=== PATIENT | male | born 1960 | race Caucasian/White ===

== ENCOUNTER 2021-04-11 13:45 | Emergency (ER) | payer OTHER, SELFPAY ==
--- NOTE | ~2021-04-11 | XR_ITS ---
EXAMINATION: XR CHEST CLINICAL INFORMATION: Chest pain COMPARISON: Chest radiographs 01/12/2020, 05/08/2017 TECHNIQUE: Portable upright AP x2 views of the chest was obtained. FINDINGS: The lungs are clear. The vascularity is normal. There is no pneumothorax, airspace consolidation, pleural reaction, or effusion. The heart is normal in size. The vascularity is normal. The hilar and mediastinal contours and visualized bony structures are unremarkable. XR/XR chest 1V IMPRESSION: Unremarkable examination.
[2021-04-11 14:26] VITALS: BP 137/84; PULSE 72; RESP 18; O2SAT 100; BMI 25.8
--- NOTE | 2021-04-11 14:29 | ECG_ITS ---
Test Reason : CHEST PAIN Blood Pressure : / mmHG Vent. Rate : 067 BPM Atrial Rate : 067 BPM P-R Int : 152 ms QRS Dur : 092 ms QT Int : 380 ms P-R-T Axes : 072 048 007 degrees QTc Int : 401 ms Normal sinus rhythm Possible Left atrial enlargement Borderline ECG No significant changes when compared with the previous EKG of 08 may 2017 Referred By: Generic ED Physician Electronically Signed By:MIKE CHEN
[2021-04-11 15:01] LABS: MANUAL DIFF FLAG NO
[2021-04-11 15:02] LABS: Basophils Percent Auto 0.4 % (0-2); Eosinophils Absolute Auto 0.1 X10*3/uL (0.0-0.4); Eosinophils Percent Auto 1.3 % (0-4); Hematocrit 46.1 % (42-52); Hemoglobin 15.4 g/dl (14.0-18.0); Imm Gran Abs Auto 0.04 X10*3/uL (0.00-0.03); Imm Gran Pct Auto 0.4 % (0.0-0.4); Lymphocytes Absolute Auto 2.1 X10*3/uL (1.2-4.9); Mean Corpuscular HGB Conc 33.4 g/dl (31.0-36.0); Mean Corpuscular Hemoglobin 30.1 pg (27.0-33.0); Mean Platelet Volume 11.4 fL (9.4-12.4); Monocytes Absolute Auto 0.6 X10*3/uL (0.1-1.2); Monocytes Percent Auto 5.9 % (2-11); Neutrophils Absolute Auto 7.1 X10*3/uL (2.0-8.3); Platelet Count 224 X10*3/uL (160-400); Red Blood Count 5.12 X10*6/uL (4.60-5.80); Red Cell Distribution Width 12.9 % (11.0-16.0)
[2021-04-11 15:19] LABS: Anion Gap 14 (12-20); Blood Urea Nitrogen 13 mg/dL (9-16); Calcium 9.6 mg/dL (8.4-10.2); Carbon Dioxide 28 mmol/L (22-29); Chloride 106 mmol/L (96-108); Creatinine Clr Calc Pharmacy 71.9; Estimated Glomerular Filt Rate > 60; Glucose Random 73 mg/dL (60-115); Potassium 4.6 mmol/L (3.3-5.1); Sodium 143 mmol/L (135-145)
[2021-04-11 15:27] LABS: B Type Natriuretic Peptide 50 pg/mL (<100); Troponin-I High Sensitivity < 3.5 ng/L (<3.5-35.0)
[2021-04-11 16:00] VITALS: BP 152/102; PULSE 59; RESP 14; O2SAT 99
[2021-04-11 16:33] VITALS: BP 131/90
--- NOTE | 2021-04-11 16:42 | ED_ITS ---
HPI - Chest Pain General Chief Complaint: Chest Pain Stated Complaint: chest, back, and neck pain Time Seen by Provider: 04/11/21 16:42 Source: patient Mode of arrival: ambulatory Limitations: no limitations History of Present Illness HPI narrative: History of hypertension not taking medication for a month complaining of pain in the left chest neck and for last 3 days pain increases on movement of the left arm on palpation taking a deep breath no shortness of breath patient does have a chronic cough no syncope no palpitation or leg swelling MD complaint: chest pain Related Data Previous Rx's Medication Instructions Recorded cyclobenzaprine 10 mg PO Q8H #20 tab 04/11/21 tramadol 50 mg PO Q6H PRN #20 tab 04/11/21 Allergies Allergy/AdvReac Type Severity Reaction Status Date / Time adult vitamins Allergy Unknown Uncoded 08/20/19 00:00 MULTIVITAMIN Allergy Unknown NAUSEA & Uncoded 07/15/20 15:19 VOMITING Review of Systems Review of Systems: Constitutional : No Weight loss, No Fever, No Chills ENT/Mouth : No sore throat, No Rhinorrhea Eyes: No Eye Pain, No Swelling Cardiovascular : + Chest Pain, no palpitations Respiratory : No Cough, No Sputum, no shortness of breath Gastrointestinal : no Nausea, No Vomiting, No Diarrhea, No abdominal Pain, no black stools Genitourinary : No Dysuria, No Urinary Frequency Musculoskeletal : No joint pain, No Myalgias, No Joint Swelling Skin : No Skin Lesions, No rash Neuro : No Weakness, No Numbness, No Dizziness, No Headache Psych : No Anxiety/Panic, No Depression Heme/Lymph: No Bruising, No Lymphadenopathy Endocrine : No Polyuria, No Polydipsia All other systems reviewed and are negative [facility] Past Medical History Medical History (Updated 04/11/21 @ 18:06 by Darius Navarro MD) HTN (hypertension) with goal to be determined Social History Social History Alcohol intake: never Patient Tobacco Use Status: Current everyday Tobacco user Smoked in Last 30 Days: Yes Use of substances other than those prescribed or required for medical reasons: Yes Substance Use Type: Marijuana Advance Directives: No Advance Directives Information Provided: Yes Physical Exam Vital Signs: Vital Signs: Last Vital Signs Pulse 59 04/11/21 16:00 Resp 14 04/11/21 16:00 BP 131/90 H 04/11/21 16:33 Pulse Ox 99 04/11/21 16:00 Body Mass Index 25.8 Appearance: Alert. Oriented X3. No acute distress. Eyes: PERRLA, No Nystagmus ENT: Pharynx normal. Oral Mucosa moist Neck: Normal inspection. Neck supple. CVS: Normal heart rate and rhythm. Pulses normal. Tenderness to palpation left anterior chest and left side of the neck Respiratory: No respiratory distress. Equal air entry bilateral, no wheezing/rales/rhonchi Abdomen: Soft and nontender. Bowel sounds are present, no mass palpable, no CVA tenderness Skin: Skin warm and dry. Normal skin color. Normal skin turgor. Extremities: No lower extremity edema. No calf tenderness Neuro: Oriented X 3. No motor deficit. No sensory deficit.No cerebellar signs , cranial nerves II-XII intact MDM - Chest Pain MDM Narrative Medical decision making narrative: Patient has atypical chest pain not localize to chest mostly the left shoulder left side of the neck and upper back normal EKG and troponin discharge patient home on pain medication Lab Data Attestation: I reviewed the patient's lab results. Result diagrams: 04/11/21 14:45 04/11/21 14:45 Labs: Lab Results 04/11/21 04/11/21 04/11/21 Range/Units 14:45 14:45 14:45 WBC 10.0 (4.8-10.8) X10*3/uL RBC 5.12 (4.60-5.80) X10*6/uL Hgb 15.4 (14.0-18.0) g/dl Hct 46.1 (42-52) % MCV 90.0 (80-98) fL MCH 30.1 (27.0-33.0) pg MCHC 33.4 (31.0-36.0) g/dl RDW 12.9 (11.0-16.0) % Plt Count 224 (160-400) X10*3/uL MPV 11.4 (9.4-12.4) fL Immature Gran % (Auto) 0.4 (0.0-0.4) % Neut % (Auto) 71.0 (45-73) % Lymph % (Auto) 21.0 (20-40) % Ramsey % (Auto) 5.9 (2-11) % Eos % (Auto) 1.3 (0-4) % Baso % (Auto) 0.4 (0-2) % Lymph # (Auto) 2.1 (1.2-4.9) X10*3/uL Ramsey # (Auto) 0.6 (0.1-1.2) X10*3/uL Eos # (Auto) 0.1 (0.0-0.4) X10*3/uL Baso # (Auto) 0.0 (0.0-0.2) X10*3/uL Abs Immat Gran (auto) 0.04 H (0.00-0.03) X10*3/uL Absolute Neuts (auto) 7.1 (2.0-8.3) X10*3/uL Absolute Nucleated RBC 0.000 (0.0-0.012) X10*3/uL Nucleated RBC % (auto) 0.0 (0.0-0.2) /100WBC Sodium 143 (135-145) mmol/L Potassium 4.6 (3.3-5.1) mmol/L Chloride 106 (96-108) mmol/L Carbon Dioxide 28 (22-29) mmol/L Anion Gap 14 (12-20) BUN 13 (9-16) mg/dL Creatinine 1.03 (0.5-1.4) mg/dL Estim Creat Clear Calc 71.9 Estimated GFR > 60 Random Glucose 73 (60-115) mg/dL Calcium 9.6 (8.4-10.2) mg/dL Troponin I High Sens < 3.5 (<3.5-35.0) ng/L B-Natriuretic Peptide (<100) pg/mL 04/11/21 Range/Units 14:45 WBC (4.8-10.8) X10*3/uL RBC (4.60-5.80) X10*6/uL Hgb (14.0-18.0) g/dl Hct (42-52) % MCV (80-98) fL MCH (27.0-33.0) pg MCHC (31.0-36.0) g/dl RDW (11.0-16.0) % Plt Count (160-400) X10*3/uL MPV (9.4-12.4) fL Immature Gran % (Auto) (0.0-0.4) % Neut % (Auto) (45-73) % Lymph % (Auto) (20-40) % Ramsey % (Auto) (2-11) % Eos % (Auto) (0-4) % Baso % (Auto) (0-2) % Lymph # (Auto) (1.2-4.9) X10*3/uL Ramsey # (Auto) (0.1-1.2) X10*3/uL Eos # (Auto) (0.0-0.4) X10*3/uL Baso # (Auto) (0.0-0.2) X10*3/uL Abs Immat Gran (auto) (0.00-0.03) X10*3/uL Absolute Neuts (auto) (2.0-8.3) X10*3/uL Absolute Nucleated RBC (0.0-0.012) X10*3/uL Nucleated RBC % (auto) (0.0-0.2) /100WBC Sodium (135-145) mmol/L Potassium (3.3-5.1) mmol/L Chloride (96-108) mmol/L Carbon Dioxide (22-29) mmol/L Anion Gap (12-20) BUN (9-16) mg/dL Creatinine (0.5-1.4) mg/dL Estim Creat Clear Calc Estimated GFR Random Glucose (60-115) mg/dL Calcium (8.4-10.2) mg/dL Troponin I High Sens (<3.5-35.0) ng/L B-Natriuretic Peptide 50 (<100) pg/mL ECG Data ECG #1: Attestation: I personally reviewed and interpreted this ECG as follows: Interpretation: Normal sinus rhythm heart rate 67 beats per minute normal intervals normal axis no acute ischemic changes Discharge Plan Discharge Clinical Impression: Musculoskeletal chest pain Patient Disposition: Home, Self-Care Instructions: Musculoskeletal Pain (ED) Additional Instructions: Take pain medication as advised Follow with PCP Prescriptions: New cyclobenzaprine 10 mg tablet 10 mg PO Q8H Qty: 20 RF: 0 tramadol 50 mg tablet 50 mg PO Q6H PRN (Reason: pain) Qty: 20 RF: 0
[2021-04-11] MEDS: Ketorolac Tromethamine 60 MG/2 ML VIAL IM (17:16)
--- NOTE | 2021-04-11 18:09 | PC.NURSE ---
Patient given discharge instructions, called for a ride to pick him up, gait steady, alert and oriented, vss- advised to follow up with PCP or to return here if does not get better.
== END 2021-04-11 18:11 | disposition home or self-care (01) ==
PROVIDERS: Emergency Provider Internal Medicine; PCP Nurse Practitioner Family
DX: R07.89 Other chest pain (principal); M54.2 Cervicalgia; R05 Cough; I10 Essential (primary) hypertension
CPT/HCPCS: 36415; 71045; 80048; 83880; 84484; 85025; 93005; 96372; 99284; J1885

== ENCOUNTER 2022-05-25 12:41 | Emergency (ER) | payer OTHER, SELFPAY ==
[2022-05-25 13:35] VITALS: BP 121/80; PULSE 75; RESP 18; TEMP 36.3; O2SAT 97; BMI 25.8
== END 2022-05-25 16:30 | disposition left against medical advice (07) ==
LOC: HO.ED 17:26
PROVIDERS: Emergency Provider Emergency Medicine
DX: M25.561 Pain in right knee (principal)
CPT/HCPCS: 99281

== ENCOUNTER 2023-05-21 13:46 | Outpatient (REF) | payer OTHER, SELFPAY ==
[2023-05-21 16:18] LABS: MANUAL DIFF FLAG NO
[2023-05-21 16:33] LABS: Basophils Absolute Auto 0.1 X10*3/uL (0.0-0.2); Basophils Percent Auto 0.7 % (0-2); Eosinophils Absolute Auto 0.1 X10*3/uL (0.0-0.4); Eosinophils Percent Auto 1.4 % (0-4); Hematocrit 45.3 % (42.0-52.0); Hemoglobin 14.9 g/dl (14.0-18.0); Imm Gran Abs Auto 0.01 X10*3/uL (0.00-0.03); Imm Gran Pct Auto 0.1 % (0.0-0.4); Lymphocytes Absolute Auto 2.4 X10*3/uL (1.2-4.9); Lymphocytes Percent Auto 29.7 % (20-40); Mean Corpuscular HGB Conc 32.9 g/dl (31.0-36.0); Mean Corpuscular Hemoglobin 30.2 pg (27.0-33.0); Mean Corpuscular Volume 91.7 fL (80.0-98.0); Mean Platelet Volume 11.6 fL (9.4-12.4); Monocytes Absolute Auto 0.6 X10*3/uL (0.1-1.2); Monocytes Percent Auto 6.9 % (2-11); Neutrophils Absolute Auto 4.9 x10*3/uL (2.0-8.3); Neutrophils Percent Auto 61.2 % (45-73); Platelet Count 203 X10*3/uL (160-400); Red Blood Count 4.94 X10*6/uL (4.60-5.80); Red Cell Distribution Width 13.1 % (11.0-16.0)
[2023-05-21 16:40] LABS: Alanine Aminotransferase 11 U/L (0-40); Albumin Level 4.4 g/dL (3.5-5.0); Alkaline Phosphatase 63 U/L (39-117); Anion Gap 11 (12-20); Aspartate Amino Transferase 18 U/L (5-37); Bilirubin Total 0.6 mg/dL (0.0-1.0); Blood Urea Nitrogen 12 mg/dL (9-16); Calcium 9.4 mg/dL (8.4-10.2); Carbon Dioxide 26 mmol/L (22-29); Chloride 107 mmol/L (96-108); Estimated Glomerular Filt Rate > 60; Glucose Random 89 mg/dL (60-115); Potassium 4.2 mmol/L (3.3-5.1); Sodium 140 mmol/L (135-145); Total Protein 7.2 g/dL (6.5-8.0)
== END 2023-05-21 13:47 | disposition home or self-care (01) ==
LOC: HO.HHCL 13:46
PROVIDERS: Visit Provider General Practice
DX: I10 Essential (primary) hypertension (principal)
CPT/HCPCS: 36415; 80053; 85025

== ENCOUNTER 2023-07-27 14:41 | Outpatient (AMB) | payer OTHER, SELFPAY ==
--- NOTE | 2023-07-27 10:43 | MHC.OFFVIS ---
Intake Intake Visit Reasons: LDCT SD Allergies adult vitamins Allergy (Unknown, Uncoded 05/25/22 13:35) Unknown MULTIVITAMIN Allergy (Unknown, Uncoded 05/25/22 13:35) NAUSEA & VOMITING HPI LDCT SD HPI Details Initial visit for this 62yo smoker with a 50PYH. Patient has been smoking since age 9 for 53 years at 1ppd. . Reports daily marijuana use. Denies second hand smoke exposure. Denies exposure to chemicals or substances like asbestos. . Denies known family history of lung cancer. Denies personal history of cancers. Denies chest CT in last year. . Denies recent travel outside the [place]. Denies recent respiratory illness or recent hospitalization for respiratory issues. Denies testing positive for COVID. Admits receiving COVID Vaccine. x3. . Denies fever, chills, new/worsening cough, hemoptysis, hoarseness or dysphagia. Denies significant chest pain, significant dyspnea or unintentional weight loss. Patient Lung Cancer Screening Questionnaire reviewed with patient by provider. . Shared Decision Making Completed. Patient meets criteria. Discussed in detail with patient, the risk vs benefit of LDCT screening. Patient consents to proceed with scan. Discussed smoking cessation. [facility] Medical History (Updated 07/17/23 @ 10:00 by Keren Morrissey PA-C) History of diabetes mellitus, type II Nicotine dependence, cigarettes, uncomplicated Hypertension Surgical History (Updated 07/17/23 @ 10:00 by Keren Morrissey PA-C) History of colonoscopy History of shoulder surgery History of lumbar surgery Social History (Updated 07/27/23 @ 14:44 by Keren Morrissey PA-C) Alcohol intake: never Patient Tobacco Use Status: Current everyday Tobacco user Years Smoked: onset 9yo, 1ppd x 53yrs, 50pyh Substance Use Type: Marijuana Assessment & Plan Assessment & Plan (1) Nicotine dependence, cigarettes, uncomplicated: Comment: (current smoker, onset 9yo, 1ppd x 53yrs, 50pyh) Code(s): F17.210 - Nicotine dependence, cigarettes, uncomplicated Plan: - SDM visit completed today in office. - Patient meets criteria for LDCT for lung cancer screening purposes and is asymptomatic. - Smoking cessation counseling offered. Patients can always call [phone]. - Will arrange for a LDCT scan of the chest for screening purposes at [facility]. - Risks, benefits, and alternatives were discussed in detail and the patient agrees to proceed. - Risks discussed include but are not limited to: radiation exposure, anxiety during testing and while awaiting results, false negatives, false positives and possibility of additional intervention such as further imaging or surgical procedures for benign disease. - Benefits are obviously detection of lung cancer at an early stage which can lead to improved outcomes. - Discussed the importance of screening program compliance with adherence to yearly LDCT scan as scheduled - or sooner interval scans for personalized screening regimen. - Discussed follow up plan. Our office will send a letter discussing results and if needed set up phone call and office visit based on CT findings. - Patient educated on results categorization and the management decisions for suspicious findings potentially found on the screening LDCT scan. Any patient with a Lung RADS score of 3 or 4 will be reviewed by a multidisciplinary team at [facility] to form a plan of action in regards to scan findings. - If further work up is warranted for a suspicious lung finding this will be followed by the Lung Cancer Screening program in conjunction with the Thoracic Surgery Department at [facility]. - A copy of the office note and LDCT will be sent to the patient's PCP - as well as documentation on any associated further plans of care. - Incidental findings on LDCT are the PCP's responsibility. These findings are indicated with an S finding on the LDCT Assessment. A note discussing the findings will be sent to the PCP who is then responsible for further management. - All questions answered.? Coding Level of Care Code Lung Cancer Screening G0296 Diagnoses Nicotine dependence, cigarettes, uncomplicated F17.210
== END 2023-07-27 15:00 | disposition home or self-care (01) ==
PROVIDERS: Visit Provider Physician Assistant Medical
DX: F17.210 Nicotine dependence, cigarettes, uncomplicated (principal)
CPT/HCPCS: G0296

== ENCOUNTER 2023-07-27 14:56 | Outpatient (REF) | payer OTHER, SELFPAY | END 2023-07-27 14:57 | disposition home or self-care (01) | LOC: HO.CT 14:56 | PROVIDERS: Visit Provider Physician Assistant Medical | DX: Z12.2 Encounter for screening for malignant neoplasm of respiratory organs (principal); F17.210 Nicotine dependence, cigarettes, uncomplicated | CPT/HCPCS: G0296 ==

== ENCOUNTER 2023-08-09 10:06 | Outpatient (REF) | payer OTHER, SELFPAY ==
--- NOTE | ~2023-08-09 | CT_ITS ---
EXAMINATION: CT CHEST LOW-DOSE SCREENING WITHOUT CONTRAST HISTORY: Asymptomatic patient meeting criteria for lung screening. Nicotine dependence. PATIENT PACK-YEAR HISTORY: 1 pack per day, smoker for 53 years. Current Smoker: Yes If former smoker, years since quitting: Not applicable COMPARISON: No similar priors. TECHNIQUE: Multidetector volumetric non-contrast CT imaging of the chest was obtained using low dose screening CT technique. Axial thin section reformations in soft tissue and lung windows were obtained. Sagittal and coronal reformations were obtained. Axial MIP images were also created and reviewed. This CT examination was performed using dose optimization techniques as appropriate, variously including the following: *Automated exposure control *Adjustment of mA and/or kV according to patient size (this includes techniques or standardized protocols for targeted exams where dose is matched to indication/reason for exam; i.e. 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 Normal heart size. No abnormal soft tissue calcifications. LUNG: Mild bronchial wall thickening. No focal consolidation or significant ground-glass disease. Central airways are patent. Background of mild emphysematous changes. Multiple pulmonary nodules, provider relations representative as follow (series 6): 1. A 0.5 x 0.3 cm solid left upper lobe nodule, image 94. 2. A 0.8 x 0.5 cm solid left lower lobe nodule with some internal cystic changes, image 260. 3. A 0.6 x 0.3 cm ground-glass nodule in the right lower lobe, image 314. 4. A 0.6 x 0.4 cm solid right upper lobe nodule with internal lucency, image 201. 5. A 0.2 cm solid nodule in the right apex, image 116. 6. A 0.4 cm solid nodule in the right upper lobe, image 126. PLEURA: No pleural effusion or pneumothorax. MEDIASTINUM: Normal heart size. No pericardial effusion. No mediastinal lymphadenopathy. Evaluation of hilar structures is limited in the absence of IV contrast. VASCULAR: Multivessel coronary artery calcifications. Atherosclerotic disease of the thoracic aorta. Normal caliber of the thoracic aorta. Visual estimate of coronary calcified plaque burden: Severe. However, this exam cannot replace a dedicated cardiac CT calcium score for accurate assessment. CHEST WALL/AXILLA: Minimal symmetric gynecomastia. No axillary lymphadenopathy. VISUALIZED ABDOMEN: Low dose technique limits assessment of the upper abdomen. No suspicious abnormality demonstrated. MUSCULOSKELETAL: No acute or suspicious osseous abnormality. SPINAL COMPRESSION: Absent. CT/CT lung screening IMPRESSION: 1. Background of bronchial wall thickening suggesting small airways disease. 2. Mild emphysema. 3. Multiple pulmonary nodules provider relations representative including a 0.8 cm solid left lower lobe nodule with internal cystic changes, 0.6 cm ground-glass nodule in the right lower lobe and 0.6 cm solid right upper lobe nodule with internal lucencies. LUNG-RADS CATEGORY ASSESSMENT: Lung-RADs category 4b. INCIDENTAL FINDINGS (S CATEGORY): Finding: No significant incidental findings. RECOMMENDATION: Recommend evaluation with prompt diagnostic chest CT; PET/CT or tissue sampling may be considered for evaluation of the 0.8 cm left lower lobe nodule.
== END 2023-08-09 10:07 | disposition home or self-care (01) ==
LOC: HO.CT 10:06
PROVIDERS: Visit Provider Physician Assistant Medical
DX: Z12.2 Encounter for screening for malignant neoplasm of respiratory organs (principal); F17.210 Nicotine dependence, cigarettes, uncomplicated
CPT/HCPCS: 71271

== ENCOUNTER 2023-11-21 13:53 | Outpatient (REF) | payer OTHER, SELFPAY ==
--- NOTE | ~2023-11-21 | CT_ITS ---
EXAMINATION: CT CHEST SCREENING CLINICAL INFORMATION: 63 year old smoker with 53 pack pack year history. Follow-up pulmonary nodules. COMPARISON: 08/09/2023 TECHNIQUE: Multidetector volumetric CT imaging of the chest is performed without contrast using low dose technique. Additional 2D coronal and sagittal reformatted images and axial 3D maximum intensity projection (MIP) images are generated on the CT workstation. This CT examination was performed using dose optimization techniques as appropriate, variously including the following: *Automated exposure control *Adjustment of mA and/or kV according to patient size (this includes techniques or standardized protocols for targeted exams where dose is matched to indication/reason for exam; i.e. extremities or head) *Use of iterative reconstruction technique DLP: 48 mGy-cm FINDINGS: DIRECTOR DIETETICS DEPARTMENT: Unremarkable. LUNGS: Trachea and bronchi are patent. Diffuse mild bronchial wall thickening. Underlying hyperinflation. Mild centrilobular emphysema. NODULES: On 6:85, 6 x 2 mm left upper lobe pulmonary nodule visually appears slightly smaller, previous measurement was 5 x 3 mm. On 6:94, 2 mm RUL nodule is unchanged. On 6:101, 3 mm nodule is unchanged. On 6:173, 4 mm nodule with internal lucency previously measured 6 mm. On 6:242, 8 x 6 mm pulmonary nodule previously measured 8 x 5 mm. Internal cystic change again seen. Irregular borders again noted. On 6:285, 3 mm groundglass nodule appears smaller than 6 mm focus with previous study. MEDIASTINUM: Unremarkable thyroid. No pathologic lymphadenopathy. Nonenlarged heart. No pericardial atherosclerotic calcifications nonaneurysmal aorta. Nonenlarged pulmonary arteries. CORONARY ARTERY CALCIFICATION: Moderately severe. PLEURA: There is no pleural effusion. No pleural mass or thickening. AXILLA: No lymphadenopathy. UPPER ABDOMEN: Unremarkable OSSEOUS STRUCTURES: Unremarkable. CT/CT lung screen follow up IMPRESSION: Bilateral pulmonary nodules, largest 8 mm in the left lower lobe. Unchanged emphysema. ASSESSMENT: Lung-RADS category 4B: Suspicious RECOMMENDATION: Further evaluation with PET/CT. At the time of this dictation, PSA service contacted to alert referring physician as to findings and recommendations.
== END 2023-11-21 13:54 | disposition home or self-care (01) ==
LOC: HO.CT 13:53
PROVIDERS: Visit Provider Physician Assistant Medical
DX: R91.8 Other nonspecific abnormal finding of lung field (principal); F17.210 Nicotine dependence, cigarettes, uncomplicated
CPT/HCPCS: 71250

== ENCOUNTER 2024-02-09 08:57 | Emergency (ER) | payer MEDICARE, OTHER, SELFPAY ==
--- NOTE | ~2024-02-09 | XR_ITS ---
EXAMINATION: XR KNEE, LEFT CLINICAL INFORMATION: Pain. Patient heard pop. COMPARISON: None available. TECHNIQUE: Four views of the left knee. FINDINGS: Bone alignment is normal. No fracture or dislocation. Normal joint spaces. Small to moderate joint effusion. Atherosclerotic disease. XR/XR knee LT 4V IMPRESSION: No fracture or dislocation seen. Small to moderate joint effusion.
[2024-02-09 09:02] VITALS: BP 111/79; PULSE 88; RESP 16; TEMP 36.5; O2SAT 99; BMI 29.1
--- NOTE | 2024-02-09 09:31 | ED_ITS ---
HPI - Extremity Injury (Lower) General Chief Complaint: Extremity Injury, Lower Stated Complaint: l knee popped Time Seen by Provider: 02/09/24 09:25 Source: patient Mode of arrival: ambulatory Limitations: no limitations History of Present Illness HPI Narrative: Patient is a 63-year-old male presenting to the emergency department with complaint of left knee pain since yesterday. States that he was walking down the hallway at his house and as he turned the corner into his room he felt a pop sensation with pain. States pain is 2 medial aspect of knee. Denies any numbness or tingling to his leg. Took ibuprofen last night. complaint: knee injury Type of Injury: unknown Place: home Severity: severe Relieving factors: NSAID Exacerbating factors: movement and palpation Associated symptoms: snap/pop sensation Other symptoms: none Treatments prior to arrival: NSAIDS Related Data Previous Rx's ?Medication ?Instructions ?Recorded cyclobenzaprine 10 mg tablet 10 mg PO Q8H #20 tabs 04/11/21 tramadol 50 mg tablet 50 mg PO Q6H PRN pain #20 tabs 04/11/21 diclofenac sodium 1 % topical gel 2 g topical QID #100 grams 02/09/24 Allergies Allergy/AdvReac Type Severity Reaction Status Date / Time No Known Allergies Allergy Verified 02/09/24 09:05 Review of Systems Review of Systems: As per HPI. Yes all other systems are reviewed and are negative Constitutional: Constitutional: Reports as per HPI [facility] Past Medical History Medical History (Updated 02/09/24 @ 11:10 by Camelia Leung NP) Coronary artery calcification seen on CAT scan Pulmonary nodules History of diabetes mellitus, type II Nicotine dependence, cigarettes, uncomplicated Hypertension Surgical History (Updated 07/17/23 @ 10:00 by Keren Morrissey PA-C) History of colonoscopy History of shoulder surgery History of lumbar surgery Social History Social History (Updated 07/27/23 @ 14:44 by Keren Morrissey PA-C) Alcohol intake: never Patient Tobacco Use Status: Current everyday Tobacco user Years Smoked: onset 9yo, 1ppd x 53yrs, 50pyh Smoked in Last 30 Days: Yes Use of substances other than those prescribed or required for medical reasons: Yes Substance Use Type: Marijuana Substance Use Frequency: Daily Advance Directives: No Advance Directives Information Provided: Yes Physical Exam Vital Signs: Vital Signs: Last Vital Signs Temp 97.7 F 02/09/24 09:02 Pulse 88 02/09/24 09:02 Resp 16 02/09/24 09:02 BP 111/79 02/09/24 09:02 Pulse Ox 99 02/09/24 09:02 O2 Del Method Room Air 02/09/24 09:02 BMI result Body Mass Index 29.1 Vital signs have been reviewed and appear to be correct. Blood pressure normal. Heart rate normal. Respiratory rate normal. Temperature normal. Oxygen saturation normal. Const: General: cooperative, healthy appearing and no acute distress Orientation/consciousness: oriented to person, oriented to place, oriented to time and patient oriented x3 Limitations: no limitations HEENT: Head: Yes normocephalic and Yes atraumatic Ears: external ears normal General nose exam: Normal external nose present Face and sinus: Yes face symmetric Mouth: oropharynx normal and moist mucous membranes Throat: Yes uvula midline Eyes: Pupils: Equal, round and reactive pupils present Neck: Neck: Yes normal visual inspection and Yes supple Resp: Effort & Inspection: normal respiratory effort and able to speak in complete sentences Auscultation: clear to auscultation bilaterally Cardio: Rate: regular rate Rhythm: regular rhythm Heart sounds: S1 normal heart sound present and S2 normal heart sound present GI: Palpation (GI): Soft to palpation and nontender Auscultation: normoactive bowel sounds : General: Yes no CVA tenderness Back/Spine/Pelvis: Back: no CVA tenderness Skin: General skin exam: elasticity normal and turgor normal Neuro: General: oriented to person, oriented to place, oriented to time, patient oriented x3, moves all extremities, no focal motor deficits and CN's II- XI intact bilaterally Cranial nerves: Yes Equal, round and reactive pupils present Cognition (Neuro): normal cognition Extrem: General: Yes full ROM, Yes normal exam except as noted, Yes no pedal edema and Yes no calf tenderness Left lower extremity: knee Details: normal to inspection, tenderness Location: of the medial joint line, normal ROM and knee ligament exam normal; no swelling and no unusual warmth Psych: Mental Status: mental status grossly normal Affect: normal affect Thought process: Normal thought process present Medications Administered Discontinued Medications Generic Name Dose Route Start Last Admin Trade Name Freq PRN Reason Stop Dose Admin Acetaminophen 650 mg 02/09/24 09:33 02/09/24 09:39 Acetaminophen 325 Mg Tablet PO 02/09/24 09:34 650 mg ONCE ONE Administration Ibuprofen 600 mg 02/09/24 09:33 02/09/24 09:39 Ibuprofen 600 Mg Tablet PO 02/09/24 09:34 600 mg ONCE ONE Administration Medical Decision Making Medical Decision Making [facility] Narrative: Patient is a 63-year-old male presenting to the emergency department with complaint of left knee pain since yesterday. On exam patient is awake, A+Ox3, VS WNL, afebrile, normal neurological exam without focal deficits, physical exam findings as above. Given reported symptoms and physical exam findings, initial differential includes knee strain, sprain, effusion, degenerative disease. X- ray notable for small to moderate effusion. My interpretation is in agreement with the radiologist's interpretation. Do not suspect septic joint as patient has full range of motion, no erythema, no warmth. Elkin wrap applied in the emergency department. Patient advised to alternate Tylenol and ibuprofen, will prescribe diclofenac gel for patient to apply topically. Advised patient to keep leg elevated and apply ice intermittently. Will refer to orthopedics for any ongoing symptoms. Return precautions discussed at bedside. Patient verbalized understanding of and agreement with plan. Differential Diagnosis Differential Diagnoses: The differential diagnosis associated with the presentation includes As per [facility] Independent Interpretation I performed an independent interpretation of an: Plain X-Ray Interpretation: Small to moderate effusion to left knee Radiology Impression Discussion of test interpretation with radiology: I have reviewed the radiologist's reading. Radiologist Impression: XR/XR knee LT 4V IMPRESSION: No fracture or dislocation seen. Small to moderate joint effusion. External Record Review External record reviewed: Inpatient record, Office record and Outpatient record Prescription Management I considered prescription management with: Pain Medication Discharge Plan Discharge Clinical Impression: Effusion of left knee Patient Disposition: Home, Self-Care Instructions: How to Use an Elastic Bandage (ED), Swollen Knee Joint (ED), R.I.C.E. Treatment (ED) Additional Instructions: You have been evaluated in the emergency department today for knee pain. Your x-ray showed fluid around your knee. You were given an Elkin wrap in the emergency department today, please use this to decrease swelling. Please rest, ice, and elevate your knee, and resume normal activities as tolerated. We recommend you take 600mg ibuprofen every 6 hours or 650mg Tylenol every 6 hours as needed for pain. If needed you can alternate these medications as they take 1 medication every 3 hours. For instance at noon take ibuprofen, then at 3:00 p.m. take Tylenol, then at 6:00 p.m. take ibuprofen. You are also being prescribed diclofenac gel which you can apply to the affected area 4 times daily. Please schedule an appointment for follow-up with your primary care provider this week. Return to the emergency department if you experience worsening pain, numbness, tingling, change of color in your leg or any other concerning symptoms. If your symptoms persist beyond the next 1-2 weeks, please call the orthopedic office to schedule an appointment for further management of your symptoms. Prescriptions: New diclofenac sodium 1 % gel 2 g topical QID Qty: 100 0RF Rx Instructions: apply to left knee No Action cyclobenzaprine 10 mg tablet 10 mg PO Q8H Qty: 20 0RF tramadol 50 mg tablet 50 mg PO Q6H PRN (Reason: pain) Qty: 20 0RF Referrals: [facility] [place] Orthopedic Surgeons [Provider Group] Print Language: Latvian
[2024-02-09] MEDS: Ibuprofen 600 MG TABLET PO (09:39)
[2024-02-09] MEDS: Acetaminophen 325 MG TABLET 650 MG PO (09:39)
[2024-02-09 11:24] VITALS: BP 115/80; PULSE 66; RESP 18; TEMP 36.7; O2SAT 96
== END 2024-02-09 11:25 | disposition home or self-care (01) ==
PROVIDERS: Emergency Provider Emergency Medicine Emergency Medical Services
DX: M25.462 Effusion, left knee (principal); M25.562 Pain in left knee; F17.200 Nicotine dependence, unspecified, uncomplicated
CPT/HCPCS: 73564; 99283; 99284

== ENCOUNTER 2024-02-11 18:18 | Emergency (ER) | payer MEDICARE, OTHER, SELFPAY ==
--- NOTE | ~2024-02-11 | XR_ITS ---
EXAMINATION: XR LUMBOSACRAL SPINE CLINICAL INFORMATION: Low back pain. COMPARISON: None available. TECHNIQUE: Three views of the lumbosacral spine. FINDINGS: Vertebral body heights are normal. No fracture or malalignment. Mild loss of intervertebral disc height at L4 L5 with endplate osteophytes. Small endplate osteophytes at L3-L4. Relative straightening of the lumbar lordosis is noted. Minimal left convex lumbar curvature. Mild facet arthropathy in the lower lumbar spine. Calcific atherosclerosis in the abdominal aorta and iliac arteries. Mild osteoarthritis of the SI joints. No acute soft tissue findings. XR/XR lumbar spine 2-3V IMPRESSION: 1. Mild degenerative disc disease at L4-L5 and L3-L4. 2. Mild facet arthropathy in the lower lumbar spine.
[2024-02-11 18:25] VITALS: BP 119/79; BP 122/74; PULSE 61; PULSE 65; RESP 16; RESP 18; TEMP 36.4; O2SAT 96; O2SAT 99; BMI 24.7
--- NOTE | 2024-02-11 21:36 | ED.BACK ---
HPI - Back Pain/Injury General Chief Complaint: Back Pain/Injury Stated Complaint: BACK PAIN Time Seen by Provider: 02/11/24 21:29 Source: patient Mode of arrival: EMS Limitations: no limitations History of Present Illness HPI Narrative: Patient has chronic arthritis comes here for pain in the lower back and left knee which is going on for long time patient taking ibuprofen without much help no recent trauma no urinary complaint patient was seen here on 02/08 1 left knee pain diagnosed with osteoarthritis Related Data Previous Rx's ?Medication ?Instructions ?Recorded cyclobenzaprine 10 mg tablet 10 mg PO Q8H #20 tabs 04/11/21 tramadol 50 mg tablet 50 mg PO Q6H PRN pain #20 tabs 04/11/21 diclofenac sodium 1 % topical gel 2 g topical QID #100 grams 02/09/24 cyclobenzaprine 10 mg tablet 10 mg PO Q8H #20 tabs 02/12/24 oxycodone-acetaminophen 5 mg-325 1 tab PO Q6H PRN pain #20 tabs 02/12/24 mg tablet (Percocet) Allergies Allergy/AdvReac Type Severity Reaction Status Date / Time No Known Allergies Allergy Verified 02/11/24 18:32 Review of Systems Review of Systems: Yes all other systems are reviewed and are negative PMFSH Past Medical History Medical History Coronary artery calcification seen on CAT scan Pulmonary nodules History of diabetes mellitus, type II Nicotine dependence, cigarettes, uncomplicated Hypertension Surgical History History of colonoscopy History of shoulder surgery History of lumbar surgery Social History Social History Alcohol intake: never Patient Tobacco Use Status: Current everyday Tobacco user Years Smoked: onset 9yo, 1ppd x 53yrs, 50pyh Smoked in Last 30 Days: Yes Use of substances other than those prescribed or required for medical reasons: Yes Substance Use Type: Marijuana Last Used Substance: Just Prior to Admission Advance Directives: No Advance Directives Information Provided: No Physical Exam Vital Signs: Vital Signs: Last Vital Signs Temp 96.3 F L 02/12/24 05:57 Pulse 48 L 02/12/24 05:57 Resp 16 02/12/24 05:57 BP 119/71 02/12/24 05:57 Pulse Ox 98 02/12/24 05:57 O2 Del Method Room Air 02/12/24 05:57 BMI result Body Mass Index 24.7 Appearance: Alert. Oriented X3. No acute distress. Eyes: PERRLA, No Nystagmus ENT: Pharynx normal. Oral Mucosa moist Neck: Normal inspection. Neck supple. CVS: Normal heart rate and rhythm. Pulses normal. Respiratory: No respiratory distress. Equal air entry bilateral, no wheezing/rales/rhonchi Abdomen: Soft and nontender. Bowel sounds are present, no mass palpable, no CVA tenderness Skin: Skin warm and dry. Normal skin color. Normal skin turgor. Extremities: No lower extremity edema. No calf tenderness diffuse tenderness left knee with mild effusion good range of movement back; diffuse lower back tenderness paraspinal mostly no midline tenderness SLR negative bilaterally Neuro: Oriented X 3. No motor deficit. No sensory deficit.No cerebellar signs , cranial nerves II-XII intact Medications Administered Discontinued Medications Generic Name Dose Route Start Last Admin Trade Name Freq PRN Reason Stop Dose Admin Cyclobenzaprine HCl 10 mg 02/11/24 21:37 02/11/24 21:46 Cyclobenzaprine Hcl 10 Mg Tablet PO 02/11/24 21:38 10 mg ONCE ONE Administration Ketorolac Tromethamine 60 mg 02/12/24 00:09 02/12/24 00:39 Ketorolac Tromethamine 60 Mg/2 Ml Vial IM 02/12/24 00:10 60 mg ONCE ONE Administration Morphine Sulfate 15 mg 02/11/24 21:37 02/11/24 21:46 Morphine Sulfate Immed Release 15 Mg Tablet PO 02/11/24 21:38 15 mg ONCE ONE Administration Medical Decision Making Medical Decision Making [facility] Narrative: Patient with chronic back pain x-ray negative for any acute compression fracture significant arthritis improved after pain medication will discharge patient home Lab Data [facility] Lab Attestation statement: I reviewed the patient's lab results. 02/12/24 00:26 02/12/24 00:26 Labs: Lab Results 02/11/24 02/12/24 Range/Units 21:22 00:26 WBC 9.3 (4.8-10.8) X10*3/uL RBC 4.99 (4.60-5.80) X10*6/uL Hgb 15.1 (14.0-18.0) g/dl Hct 45.4 (42.0-52.0) % MCV 91.0 (80.0-98.0) fL MCH 30.3 (27.0-33.0) pg MCHC 33.3 (31.0-36.0) g/dl RDW 13.0 (11.0-16.0) % Plt Count 192 (160-400) X10*3/uL MPV 11.1 (9.4-12.4) fL Immature Gran % (Auto) 0.2 (0.0-0.4) % Neut % (Auto) 63.1 (45-73) % Lymph % (Auto) 27.6 (20-40) % [place] % (Auto) 7.1 (2-11) % Eos % (Auto) 1.5 (0-4) % Baso % (Auto) 0.5 (0-2) % Lymph # (Auto) 2.6 (1.2-4.9) X10*3/uL [place] # (Auto) 0.7 (0.1-1.2) X10*3/uL Eos # (Auto) 0.1 (0.0-0.4) X10*3/uL Baso # (Auto) 0.1 (0.0-0.2) X10*3/uL Abs Immat Gran (auto) 0.02 (0.00-0.03) X10*3/uL Absolute Neuts (auto) 5.9 (2.0-8.3) x10*3/uL Absolute Nucleated RBC 0.000 (0.0-0.012) X10*3/uL Nucleated RBC % (auto) 0.0 (0.0-0.2) /100WBC Sodium 139 (135-145) mmol/L Potassium 3.9 (3.3-5.1) mmol/L Chloride 103 (96-108) mmol/L Carbon Dioxide 27 (22-29) mmol/L Anion Gap 13 (12-20) BUN 12 (9-16) mg/dL Creatinine 1.01 (0.5-1.4) mg/dL Estim Creat Clear Calc 68.1 Estimated GFR > 60 Random Glucose 112 (60-115) mg/dL Calcium 9.7 (8.4-10.2) mg/dL Magnesium 2.1 (1.6-2.6) mg/dL Total Bilirubin 0.5 (0.0-1.0) mg/dL AST 17 (5-37) U/L ALT 11 (0-40) U/L Alkaline Phosphatase 65 (39-117) U/L Total Protein 7.4 (6.5-8.0) g/dL Albumin 4.4 (3.5-5.0) g/dL Urine Color Yellow Urine Appearance Clear Urine pH 6.5 (5.0-9.0) Ur Specific [place] 1.010 (1.005-1.025) Urine Protein Negative (Neg-Trace) mg/dL Urine Glucose (UA) Negative (Negative) mg/dL Urine Ketones Negative (Negative) mg/dL Urine Blood Negative (Negative) Urine Nitrite Negative (Negative) Ur Leukocyte Esterase Negative (Negative) Independent Interpretation I performed an independent interpretation of an: Plain X-Ray Radiology Impression Discussion of test interpretation with radiology: I have reviewed the radiologist's reading. Discharge Plan Discharge Clinical Impression: Chronic back pain Patient Disposition: Home, Self-Care Instructions: Chronic Back Pain (DC) Additional Instructions: Take pain medication and muscle relaxer as prescribed Follow with your PCP Prescriptions: New cyclobenzaprine 10 mg tablet 10 mg PO Q8H Qty: 20 0RF oxycodone-acetaminophen [Percocet] 5-325 mg tablet 1 tab PO Q6H PRN (Reason: pain) Qty: 20 0RF Rx Instructions: Partial Fill upon patient request. No Action cyclobenzaprine 10 mg tablet 10 mg PO Q8H Qty: 20 0RF tramadol 50 mg tablet 50 mg PO Q6H PRN (Reason: pain) Qty: 20 0RF diclofenac sodium 1 % gel 2 g topical QID Qty: 100 0RF Rx Instructions: apply to left knee Print Language: New Zealander
[2024-02-11 21:38] LABS: Appearance Urine Clear; Color Urine Yellow; Glucose Urine UA Negative (Negative); Leukocyte Esterase Urine Negative (Negative); Nitrite Urine Negative (Negative); PH 6.5 (5.0-9.0); Urine Blood Negative (Negative); Urine Ketones Negative (Negative); Urine Protein Negative (Neg-Trace)
[2024-02-11] MEDS: Cyclobenzaprine HCl 10 MG TABLET PO (21:46)
[2024-02-11] MEDS: Morphine Sulfate Immed Release 15 MG TABLET PO (21:46)
--- NOTE | 2024-02-11 23:56 | PC.NURSE ---
pt reports pain has not resolved. dr. morales made aware.
[2024-02-12 00:35] LABS: MANUAL DIFF FLAG NO
[2024-02-12 00:36] VITALS: BP 107/80; PULSE 56; RESP 18; TEMP 36.7; O2SAT 99
[2024-02-12 00:37] LABS: Basophils Absolute Auto 0.1 X10*3/uL (0.0-0.2); Basophils Percent Auto 0.5 % (0-2); Eosinophils Absolute Auto 0.1 X10*3/uL (0.0-0.4); Eosinophils Percent Auto 1.5 % (0-4); Hematocrit 45.4 % (42.0-52.0); Hemoglobin 15.1 g/dl (14.0-18.0); Imm Gran Abs Auto 0.02 X10*3/uL (0.00-0.03); Imm Gran Pct Auto 0.2 % (0.0-0.4); Lymphocytes Absolute Auto 2.6 X10*3/uL (1.2-4.9); Lymphocytes Percent Auto 27.6 % (20-40); Mean Corpuscular HGB Conc 33.3 g/dl (31.0-36.0); Mean Corpuscular Hemoglobin 30.3 pg (27.0-33.0); Mean Platelet Volume 11.1 fL (9.4-12.4); Monocytes Absolute Auto 0.7 X10*3/uL (0.1-1.2); Monocytes Percent Auto 7.1 % (2-11); Neutrophils Absolute Auto 5.9 x10*3/uL (2.0-8.3); Neutrophils Percent Auto 63.1 % (45-73); Platelet Count 192 X10*3/uL (160-400); Red Blood Count 4.99 X10*6/uL (4.60-5.80); White Blood Count 9.3 X10*3/uL (4.8-10.8)
[2024-02-12] MEDS: Ketorolac Tromethamine 60 MG/2 ML VIAL IM (00:39)
[2024-02-12 00:50] LABS: Alanine Aminotransferase 11 U/L (0-40); Albumin Level 4.4 g/dL (3.5-5.0); Alkaline Phosphatase 65 U/L (39-117); Anion Gap 13 (12-20); Aspartate Amino Transferase 17 U/L (5-37); Bilirubin Total 0.5 mg/dL (0.0-1.0); Blood Urea Nitrogen 12 mg/dL (9-16); Calcium 9.7 mg/dL (8.4-10.2); Carbon Dioxide 27 mmol/L (22-29); Chloride 103 mmol/L (96-108); Creatinine Clr Calc Pharmacy 68.1; Estimated Glomerular Filt Rate > 60; Glucose Random 112 mg/dL (60-115); Magnesium 2.1 mg/dL (1.6-2.6); Potassium 3.9 mmol/L (3.3-5.1); Sodium 139 mmol/L (135-145); Total Protein 7.4 g/dL (6.5-8.0)
--- NOTE | 2024-02-12 01:10 | PC.NURSE ---
pt reports pain improved able to ambulate with steady gait. pt placed back into recliner. awaiting xray results.
[2024-02-12 05:57] VITALS: BP 119/71; PULSE 48; RESP 16; TEMP 35.7; O2SAT 98
[2024-02-12 07:28] VITALS: BP 119/71; PULSE 65; RESP 16; TEMP 36.6; O2SAT 98
== END 2024-02-12 07:29 | disposition home or self-care (01) ==
PROVIDERS: Emergency Provider Internal Medicine
DX: G89.29 Other chronic pain (principal); M54.50 Low back pain, unspecified; M17.12 Unilateral primary osteoarthritis, left knee; I10 Essential (primary) hypertension; E11.9 Type 2 diabetes mellitus without complications
CPT/HCPCS: 36415; 72100; 80053; 81003; 83735; 85025; 96372; 99284; J1885

== ENCOUNTER 2024-02-28 13:52 | Outpatient (AMB) | payer MEDICARE, SELFPAY ==
--- NOTE | 2024-02-28 13:55 | MHC.OFFVIS ---
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 Patient reports his pain has been going on for about a month and is a 6 on the 1-10 pain scale. He is using ibuprofen, tylenol, oxycodone with tylenol for pain with little relief. He denies injury, injections, and surgery. The patient states that he twisted his knee when walking down stairs. He denies any pain prior to that time. Allergies No Known Allergies Allergy (Verified 02/28/24 14:03) Medication List - Last Reconciled 02/29/24 by Ayush Benjamin MD atorvastatin 20 mg PO QPM cholecalciferol (vitamin D3) 50 mcg PO QAM cyclobenzaprine 10 mg PO Q8H cyclobenzaprine 10 mg PO Q8H diclofenac sodium 1% 2 grams topical QID ibuprofen 800 mg PO Q8H PRN lisinopril-hydrochlorothiazide 20-25 mg 1 tab PO QAM tramadol 50 mg PO Q6H PRN PFSH Medical History Coronary artery calcification seen on CAT scan Pulmonary nodules History of diabetes mellitus, type II Nicotine dependence, cigarettes, uncomplicated Hypertension Surgical History History of colonoscopy History of shoulder surgery History of lumbar surgery Social History (Updated 02/28/24 @ 14:03 by Jacinta Feldman CMA) Alcohol intake: never Patient Tobacco Use Status: Current everyday Tobacco user Years Smoked: onset 9yo, 1ppd x 51yrs, 50pyh Substance Use Type: Marijuana Current occupational status: disabled Physical Exam Vital Signs: BMI result Body Mass Index 25.4 Const Other: Well-nourished well-developed very friendly male awake alert and oriented x3 in no acute distress Extrem Other: Bilateral lower extremity examination shows good capillary refill, no skin lesions noted, normal sensation light touch Left knee examination shows a mild effusion, minimal crepitus with range of motion, tenderness along his medial joint line, positive Dayanna's test Office Procedures Joint Injection/Drain Joint Injection/Drain Primary Site: left knee Prep: site was prepped using aseptic technique Injected: 40 mg of, DepoMedrol and 1% plain lidocaine Procedure: The patient tolerated the procedure well Coding 48739 - Large joint Procedure code (CPT) selection complete Results Reviewed Results Reviewed: X-rays of the patient's left knee show mild diffuse joint space narrowing, no acute bony abnormalities Assessment & Plan Assessment & Plan (1) Left knee pain: Code(s): M25.562 - Pain in left knee Category: Medical Plan Mr. Marshall Victoria presents with left knee pain and mechanical symptoms due to early degenerative joint disease as well as possible medial meniscus tearing. I had a lengthy discussion with the patient regarding the treatment options. The risks and benefits of a left knee cortisone injection were discussed at length with the patient. The patient wished to proceed. Prior to the injection 8 cc of clear fluid were aspirated from the patient's left knee. He tolerated the injection well. Will continue with his activity modifications. He will contact me prior to his follow-up appointment in 6 weeks should any questions or concerns arise. Feel free to call me at any time should questions regarding his orthopedic management arise. Thank you very much for asking me to see this very friendly gentleman. I spent 20 minutes in reviewing the patient's records and imaging studies, seeing the patient and documenting in the medical record. Orders: Orders AMB Joint Injection/Aspiration 02/28/24 M25.562 - Pain in left knee Coding Level of Care Code New Pt Level 2 (31647) Diagnoses Left knee pain M25.562 CPT Codes Coding - 28197 Large joint: 00764 - Large joint ([id number])
[2024-02-28 13:59] VITALS: BMI 25.4
== END 2024-02-28 14:26 | disposition home or self-care (01) ==
PROVIDERS: Visit Provider Orthopaedic Surgery
DX: M25.562 Pain in left knee (principal)
CPT/HCPCS: 20610; 99203

== ENCOUNTER → 2024-02-28 13:52 | Outpatient (BNVA) | payer MEDICARE, SELFPAY | PROVIDERS: Visit Provider Orthopaedic Surgery | DX: M25.562 Pain in left knee (principal) | CPT/HCPCS: 20610; 99202; J1010 ==

== ENCOUNTER 2024-09-18 09:01 | Outpatient (REF) | payer MEDICARE, SELFPAY ==
[2024-09-18 11:15] LABS: MANUAL DIFF FLAG NO
[2024-09-18 11:24] LABS: Basophils Percent Auto 0.4 % (0-2); Eosinophils Absolute Auto 0.1 X10*3/uL (0.0-0.4); Eosinophils Percent Auto 1.1 % (0-4); Hematocrit 42.1 % (42.0-52.0); Hemoglobin 14.5 g/dl (14.0-18.0); Imm Gran Abs Auto 0.04 X10*3/uL (0.00-0.03); Imm Gran Pct Auto 0.4 % (0.0-0.4); Lymphocytes Absolute Auto 2.5 X10*3/uL (1.2-4.9); Lymphocytes Percent Auto 25.8 % (20-40); Mean Corpuscular HGB Conc 34.4 g/dl (31.0-36.0); Mean Corpuscular Hemoglobin 30.3 pg (27.0-33.0); Mean Corpuscular Volume 87.9 fL (80.0-98.0); Mean Platelet Volume 11.4 fL (9.4-12.4); Monocytes Absolute Auto 0.6 X10*3/uL (0.1-1.2); Monocytes Percent Auto 5.7 % (2-11); Neutrophils Absolute Auto 6.4 x10*3/uL (2.0-8.3); Neutrophils Percent Auto 66.6 % (45-73); Platelet Count 208 X10*3/uL (160-400); Red Blood Count 4.79 X10*6/uL (4.60-5.80); Red Cell Distribution Width 13.5 % (11.0-16.0); White Blood Count 9.6 X10*3/uL (4.8-10.8)
[2024-09-18 11:38] LABS: Alanine Aminotransferase 20 U/L (0-40); Albumin Level 4.3 g/dL (3.5-5.0); Alkaline Phosphatase 82 U/L (39-117); Anion Gap 11 (12-20); Aspartate Amino Transferase 32 U/L (5-37); Bilirubin Total 0.6 mg/dL (0.0-1.0); Blood Urea Nitrogen 12 mg/dL (9-16); Calcium 9.4 mg/dL (8.4-10.2); Carbon Dioxide 26 mmol/L (22-29); Chloride 105 mmol/L (96-108); Cholesterol 204 mg/dL (<200); Estimated Glomerular Filt Rate > 60; Glucose Random 105 mg/dL (60-115); HDL Cholesterol 49 mg/dL (>40); LDL Cholesterol Calculated 128 mg/dL (<100); Potassium 3.8 mmol/L (3.3-5.1); Sodium 138 mmol/L (135-145); Total Protein 6.9 g/dL (6.5-8.0); Triglycerides 136 mg/dL (<150)
== END 2024-09-18 09:02 | disposition home or self-care (01) ==
LOC: HO.HHCL 09:01
PROVIDERS: Visit Provider General Practice
DX: I10 Essential (primary) hypertension (principal)
CPT/HCPCS: 36415; 80053; 80061; 85025

== ENCOUNTER 2024-11-24 11:10 | Outpatient (REF) | payer MEDICARE, SELFPAY ==
--- NOTE | ~2024-11-24 | CT_ITS ---
CLINICAL HISTORY: F17.210 - Nicotine dependence, cigarettes, uncomplicated CT lung cancer screening (LDCT) Comparison: CT/[place]/SR - CT LUNG SCREEN FOLLOW UP - 11/21/23 14:[address]/[place]/SR - CT LUNG SCREENING - 08/09/23 10:25 EDT Technique: Axial CT images of the chest using low-dose technique. Referring provider counseled the patient on shared decision-making for LDCT screening. Additional counseling was provided on smoking cessation. Effective radiation dose total: DLP 34.1 mGycm, CTDIvol 1.1 mGy. Findings: Multiple bilateral pulmonary nodules as seen previously. These are all unchanged except for a left lower lobe pulmonary nodule within the superior segment which measures 7 x 10 mm in size. There is spiculation is nodule with subtle adjacent ground-glass density. No focal areas of consolidation. No pleural effusion or pneumothorax. No enlarged lymph nodes. Minor bilateral gynecomastia. Dense coronary artery calcification. No free fluid or free air within the upper abdomen. No acute bony lesions. Impression: Interval increase in size of the previously described left lower lobe pulmonary nodule. Prior report suggested PET-CT be performed. I am unsure as to whether this has been performed. Clinical correlation is advised. Category 4B: Suspicious. PET-CT suggested if not previously performed. Category 1: Normal; continue annual screening Category 2: Benign appearance or behavior, continue annual screening Category 3: Probably benign, [address] recommended Category 4A: Suspicious, [address] recommended; may consider PET/CT Category 4B: Suspicious, Additional diagnostics and/or tissue sampling recommended Category 4X: Suspicious, Additional diagnostics and/or tissue sampling recommended Category 0: Recalls (incomplete screen due to Incomplete coverage, Noise, Respiratory motion, Expiration, Obscured by acute abnormality) This document has been electronically signed by: Amilcar Roberson MD on 11/24/2024 17:42:19
--- OUTSIDE RECORDS SUMMARY | 2024-11-24 16:07 | XMS_ITS | Encounter Summary ---
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 Name Role Phone Katlyn Dominguez MD Primary Care Provider [phone] Encounter Details Date Type Department Care Team ([facility] st Contact Info) Description 10/24/2024 Orders Only [facility] MEDICINE [address] [place], [place] [id number] Katlyn Dominguez MD [address] [place], [place] [id number] Social History Tobacco Use Types Packs/Day Years Used Date Smoking Tobacco: Every Day Cigarettes Smokeless Tobacco: Never Alcohol Use Standard Drinks/Week Comments Yes 0 (1 standard drink = 0.6 oz pur e alcohol) sometimes Depression Answer Date Recorded Patient Health Questionnaire-9 Score 17 09/10/2024 Patient Health Questionnaire-9 Score 17 09/10/2024 Last PHQ-9: Questionnaire Data Not on file 1 11/10/2023 Housing Stability Answer Date Recorded What is your housing situation today? I have issa moy 09/10/[address] you li ve. Do you have problems with any of the following? None of the above 09/10/2024 Food Insecurity Answer Date Recorded Within the past 12 months, y ou worried that your food would run out before you got money to buy more: Sometimes True 2023 Within the past 12 months,th e food you bought just didn't last and you didn't have enough money to get more: Sometimes True 09/10/2024 Transportation Answer Date Recorded In the past 12 months, has l ack of transportation kept you from medical appts, meetings, work or from getting things needed for daily living? No 09/10/2024 Utilities Answer Date Recorded In the past 12 months, has t he electric, gas, oil or water company threatened to shut off services in your home? No 09/10/2024 Depression Answer Date Recorded Patient Health Questionnaire-2 Score 6 09/10/2024 Internet Access Answer Date Recorded Internet Access Q1 No 09/10/2024 Internet Access Q2 I do not want or need it 08/29 Sex and Gender Information Value Date Recorded Sex Assigned at Male 08/28/2022 10:21 AM EDT Legal Sex Male 10:21 AM EDT Gender Identity Male 08/28/2022 10:21 AM EDT Sexual Orientation Choose not to disclose 2021 10:21 AM EDT documented as of this encounter Plan of Treatment Not on file documented as of this encounter Visit Diagnoses Not on filedocumented in this encounter Additional Health Concerns Assessment Noted Time PHQ-9 Depression Total Score: 17 024 3:51 PM EST documented as of this encounter Care Teams Public Transit Bus Driver Relationship Specialty Start Date End Date Katlyn Dominguez MD [address] [place] [id number] PCP - General Family Medicine 12/14/20 documented as of this encounter
--- OUTSIDE RECORDS SUMMARY | 2024-11-24 16:07 | XMS_ITS | Encounter Summary ---
Author Organization [employer] Address [address] [facility] 7t [place] [address] Care Team Providers Care Matcher Name Role Phone Katlyn Dominguez MD Primary Care Provider [phone] Reason for Visit * Reason Comments Med Refill Encounter Details Date Type Department Care Team ([facility] st Contact Info) Description 05/30/2024 Refill [facility] [address] [place], [place] [phone] Katlyn Dominguez MD [address] [place], [place] [phone] Social History Tobacco Use Types Packs/Day Years Used Date Smoking Tobacco: Every Day Cigarettes Smokeless Tobacco: Never Alcohol Use Standard Drinks/Week Comments Never 0 (1 standard drink = 0.6 oz pur e alcohol) Housing Stability Answer Date Recorded What is your housing situation today? I have issavicki moy 08/27/[address] you li ve. Do you have problems with any of the following? None of the above 08/27/2023 Food Insecurity Answer Date Recorded Within the past 12 months, y ou worried that your food would run out before you got money to buy more: Never True 08/27/2023 Within the past 12 months,th e food you bought just didn't last and you didn't have enough money to get more: Never True Transportation Answer Date Recorded In the past 12 months, has l ack of transportation kept you from medical appts, meetings, work or from getting things needed for daily living? Yes, it has kept me from medical appointments or getting medications. 08/05/2023 Utilities Answer Date Recorded In the past 12 months, has t he electric, gas, oil or water company threatened to shut off services in your home? No 08/27/2023 Depression Answer Date Recorded Patient Health Questionnaire-2 Score 2 05/21/2023 Sex and Gender Information Value Date Recorded Sex Assigned at Male 08/28/2022 10:21 AM EDT Legal Sex Male 10:21 AM EDT Gender Identity Male 08/28/2022 10:21 AM EDT Sexual Orientation Choose not to disclose 2021 10:21 AM EDT documented as of this encounter Plan of Treatment Not on file documented as of this encounter Visit Diagnoses Not on filedocumented in this encounter Care Teams Matcher Relationship Specialty Start Date End Date Katlyn Dominguez MD [address] [place] [phone] PCP - General Family Medicine 12/14/20 documented as of this encounter
--- OUTSIDE RECORDS SUMMARY | 2024-11-24 16:07 | XMS_ITS | Encounter Summary ---
Author Organization [employer] Address 75 [facility] 7t [place] [address] Care Team Providers Care Fiscal Services Manager Name Role Phone Katlyn Dominguez MD Primary Care Provider [phone] Reason for Visit * Reason Onset Date Comments FYI 12/31/2023 Encounter Details Date Type Department Care Team (Late st Contact Info) Description 12/31/2023 Telephone [facility] MEDICINE [address] [place] [address] Katlyn Dominguez MD [address] [place], [place] [phone] FYI Social History Tobacco Use Types Packs/Day Years Used Date Smoking Tobacco: Every Day Cigarettes Smokeless Tobacco: Never Alcohol Use Standard Drinks/Week Comments Never 0 (1 standard drink = 0.6 oz pur e alcohol) Depression Answer Date Recorded Patient Health Questionnaire-9 [...] AM EDT documented as of this encounter Miscellaneous Notes * Telephone Encounter - Leticia Haynes RN - 01/07/2024 1:38 PM EDT MICHAEL TC placed to pt regarding the insurance concerns to cover a PET scan. According to the pt he came to insurance registration on the 3rd floor of the clinic today. States that they were able to processhis [employer] insurance and he should be able to have the PET scan. I did emphasize the importanceof having this done vs the risk of missing a potential cancer diagnosis. * Telephone Encounter - Leticia Haynes RN - 01/04/2024 9:17 AM EST Can you please verify with patient that this is true about having to pay 20% for PET scan? Advise him he can talk to insurance registration here and see what his options are for supplemental insurance. We understand that he may not want to incur that expense. This is weighed against the risk of missing cancer potentially, so let's see if we can figure out a way for him to get the PET scan. TY! Called pt and he verified that it is true about the PET scan and the increase in morales due to insurance. Pt also stated that he reached out to insurance registration on the third floor about a month ago. Stated that they need a bank statement from him but he can't access it. Told pt I would let PCPknow and see if we can talk to insurance registration for him? Not sure if the pt is accurate on what registration needs from him * Telephone Encounter - Barneywilder Justyn - 12/31/2023 9:07 AM EST Tc from [facility] lung cancer screening dept would like to inform PCP that due to abnormal finding in CT scan they have ordered pt a PET scan however stated [employer] insurance is currently inactive and was billed through medicare. Pt will have to pay 20% however pt has refused to pay. [facility] would like for RN or PCP to please reach out to pt. documented in this encounter Plan of Treatment Not on file documented as of this encounter Visit Diagnoses Not on filedocumented in this encounter Care Teams Fiscal Services Manager Relationship Specialty Start Date End Date Katlyn Dominguez MD [address] [place] [phone] PCP - General Family Medicine 12/14/20 documented as of this encounter
--- OUTSIDE RECORDS SUMMARY | 2024-11-24 16:07 | XMS_ITS | Clinical Summary ---
Author Organization [employer] Address [address] [facility] 7t [place] [address] Care Team Providers Care Technical Support Associate Name Role Phone Katlyn Dominguez MD Primary Care Provider [phone] Allergies No known active allergies Medications terbinafine (LamISIL) 1 % cream Apply topically at bed time. 2 Active zoster vaccine-recombi nant adjuvanted (Shingrix) 50 MCG/0.5ML vaccine Inject 0.5 mL into the shoulder, thigh, or buttocks. 2 Active atorvastatin (Lipitor) 20 MG tablet Take 1 tablet (20 mg) by mouth in the evening. 90 tablet 3 3 Active lisinopril-hydr oCHLOROthiazide 20-25 MG tablet TAKE 1 TABLET BY MOUTH EVERY DAY IN THE MORNING 90 tablet 3 4 Active cholecalciferol VITAMIN D (Vitamin D-3) 50 MCG (2000 UT) capsule TAKE 1 CAPSULE (50 MCG) BY MOUTH IN THE MORNING 90 capsule 3 4 Active ibuprofen 800 MG tablet TAKE 1 TABLET BY ORAL ROUTE 3 TIMES EVERY DAY NEEDED. TAKE WITH FOOD 100 tablet 3 4 Active Diclofenac Sodium 1 % gel PLACE 2G TOPICALLY 4 TIMES A DAY TO LEFT KNEE 4 Active Active Problems Problem Noted Date Diagnosed Date Moderately severe major depression 09/11/[address] 09/11/2024 Screen for colon cancer 09/11/2024 Food insecurity 09/11/2024 Inadequate housing utilities 09/11/2024 Housing situation unstable 11/26/2023 Assessment & Plan (11/26/2023 10:38 AM EST): [facility]erral to [facility] Annual physical exam 05/23/2023 Assessment & Plan (05/23/2023 8:51 AM EDT): Colon cancer screening, vision exam, and lung cancer screenign all due History of diabetes mellitus, type II 05/21/2023 Assessment & Plan (05/21/2023 1:14 PM EDT): - Well managed with diet and exercise - RTC in 6 months for routine care Maintenance: Eye Exam: referred today Diabetic foot exam: 04/13/22; no loss of protective sensation Micro albumin: ordered today BMP: ordered today ASCVD 10 yr risk score: Calculate based on updated lipid profile ordered today Treatment Goals: A1c goal: <7% FBG goal: <130 2 hour post prandial goal: <180 LDL goal: < 70 Essential hypertension 12/23/2015 Assessment & Plan (09/11/2024 1:07 PM EST): Diet controlled, normal BMI Continue to monitor at each visit Assessment & Plan (11/26/2023 10:40 AM EST): Continue hydrochlorothiazide-Lisinopril Continue Atorvastatin nightly Assessment & Plan (05/23/2023 8:46 AM EDT): Due for labs Restart hydrochlorothiazide-Lisinopril, may need down titration of anti-HTN if his BP is this weel controlled off meds Check at home and come in if BP <120/60 consistently Restart Atorvastatin nightly Intermittent low back pain 12/23/2015 Smoker 12/23/2015 Assessment & Plan (05/21/2023 1:15 PM EDT): Declines smoking cessation Vitamin D deficiency 12/23/2015 Encounters Date Type Department Care Team Description 10/24/2024 Orders Only [facility] [address] [place] [address] Katlyn Dominguez MD 10/06/2024 Telephone [facility] [address] [place] [address] Katlyn Dominguez MD callback requested 09/10/2024 4:00 PM EST Office Visit [facility] [address] [place] [address] Katlyn Dominguez MD Essential hypertension (Primary Dx); Encounter for immunization; Screen for colon cancer; Abnormal chest CT; Inadequate housing utilities; Moderately severe major depression (CMS/HCC); Food insecurity; Smoker; Housing situation unstable 09/10/2024 Travel 09/02/2024 Patient Outreach [facility] [address] [place] [address] Katlyn Dominguez MD Pre-visit Planning (Pre-visit planning - unable to leave a message, number is not available. / ) from Last 3 Months Immunizations Name Administration Dates Next Due Hep B, adult 06/04/2018,01/11/2018,12/05/2017 Influenza injectable quadriv alent preservative free 09/11/2022 Moderna Covid-19 Vaccine 12+ 10/25/2021,04/01/20 21,03/04/2021 Pneumococcal Conjugate PCV 20 09/10/2024 Pneumococcal Polysaccharide PPSV23 03/13/2022 Td (adult), 5 Lf tetanus tox oid, preservative free, adsorbed 10/04/2016 Tdap 07/13/2014 Zoster, Recombinant 03/24/2022,07/29/2019 Social History Tobacco Use Types Packs/Day Years Used Date Smoking Tobacco: Every Day Cigarettes Smokeless Tobacco: Never Tobacco Cessation:Ready to Q uit: Not Asked; Counseling Given: Not Answered Alcohol Use Standard Drinks/Week Comments Yes 0 [...] not to disclose 2021 10:21 AM EDT Last Filed Vital Signs Vital Sign Reading Time Taken Comments Blood Pressure 107/77 09/10/2024 3:48 PM EST Pulse 85 09/10/2024 3:48 PM EST Temperature 36.4 ??C (97.6 ??F) 09/10/2024 3:48 PM ES T Respiratory Rate 21 11/26/2023 10:00 AM EST Oxygen Saturation 98% 09/10/2024 3:48 PM EST Inhaled Oxygen Concentration - - Weight 70.3 kg (155 lb) 09/10/2024 3:48 PM EST Height 170.2 cm (5' 7 ) 09/10/2024 3:48 PM EST Body Mass Index 24.28 09/10/2024 3:48 PM EST Plan of Treatment Health Maintenance Due Date Last Done Comments CT Colonography 1958 Colonoscopy 1958 Colorectal Cancer Screening 1958 FIT DNA/Cologuard 1958 FIT 1958 FOBT 1958 Sigmoidoscopy 1958 Alcohol/Substance Use Screening 1970 Hepatitis C Screening 1976 COVID-19 Vaccine (2023- 5 season) 2024 10/25/2021, 04/01/2021, 03/04/2021 Influenza Vaccine (#1) 2024 09/11/2022 Depression Monitoring (PHQ-9) 03/10/2025, 09/10/2024 Depression Screening 09/10/2025 09/10/2024, 09/10/2024 SDOH Screening 09/10/2025 09/10/2024 Tobacco Screening 09/11/2025 09/11/2024 DTaP/Tdap/Td Vaccines (3 - T d or Tdap) 10/04/2026 10/04/2016, 07/13/2014 Lipid Panel 09/18/2029 09/18/2024, 09/11/2022, 04/29/2021 RSV Patients and Patients Aged 60 years or older (1 - 1-dose 75+ series) 2033 Hepatitis B Vaccines Completed 06/04/2018, 01/11/2018, 12/05/2017 Zoster Vaccines Completed 03/24/2022, 07/29/2019 Pneumococcal Vaccine: 65+ Years Completed 09/10/2024, 03/13/2022 HIB Vaccines Aged Out No longer eligi ble based on patient's age to complete this topic HPV Vaccines Aged Out No longer eligi ble based on patient's age to complete this topic Hepatitis A Vaccines Aged Out No long er eligible based on patient's age to complete this topic IPV Vaccines Aged Out No longer eligi ble based on patient's age to complete this topic Meningococcal Vaccine Aged Out No ashleigh seferino eligible based on patient's age to complete this topic RSV under 20 months Aged Out No longe r eligible based on patient's age to complete this topic Rotavirus Vaccines Aged Out No longer eligible based on patient's age to complete this topic Procedures Procedure Name Priority Date/Time Associated Diagnosis Comments LIPID PANEL, STANDARD Routine 09/18/2024 9:05 AM EST Essential hypertension CBC WITH AUTO DIFFERENTIAL Routine 09/18/2024 9:05 AM EST Essential hypertension COMPREHENSIVE METABOLIC PANEL Routine 09/18/2024 9:05 AM EST Essential hypertension from Last 3 Months Results * (ABNORMAL) CBC auto differential (09/18/2024 9:05 AM EST) White Blood Count 9.6 4.8 - 10.8 X10*3/uL [facility] Red Blood Count 4.79 4.60 - 5.80 X10*6/uL [facility] Hemoglobin 14.5 14.0 - 18.0 g/dl [facility] Hematocrit 42.1 42.0 - 52.0 % [facility] Mean Corpuscular Volume 87.9 80.0 - 98.0 fL [facility] Mean Corpuscular Hemoglobin 30.3 27.0 - 33.0 pg [facility] Mean Corpuscular HGB Conc 34.4 31.0 - 36.0 g/dl [facility] Red Cell Distribution Width 13.5 11.0 - 16.0 % [facility] Platelet Count 208 160 - 400 X10*3/uL [facility] Mean Platelet Volume 11.4 9.4 - 12.4 fL [facility] Neutrophils Percent Auto 66.6 45 - 73 % [facility] Imm Gran Pct Auto 0.4 0.0 - 0.4 % [facility] Lymphocytes Percent Auto 25.8 20 - 40 % [facility] Monocytes Percent Auto 5.7 2 - 11 % [facility] Eosinophils Percent Auto 1.1 0 - 4 % [facility] Basophils Percent Auto 0.4 0 - 2 % [facility] NRBC Pct Auto 0.0 0.0 - 0.2 /100WBC [facility] Neutrophils Absolute Auto 6.4 2.0 - 8.3 x10*3/uL [facility] Imm Gran Abs Auto 0.04(H) 0.00 - 0.03 X10*3/uL [facility] Lymphocytes Absolute Auto 2.5 1.2 - 4.9 X10*3/uL [facility] Monocytes Absolute Auto 0.6 0.1 - 1.2 X10*3/uL [facility] Eosinophils Absolute Auto 0.1 0.0 - 0.4 X10*3/uL [facility] Basophils Absolute Auto 0.0 0.0 - 0.2 X10*3/uL [facility] NRBC Abs Auto 0.000 0.0 - 0.012 X10*3/uL [facility] Blood Venous blood specimen / Unknown 09/18/2024 9:05 AM EST 09/18/2024 11:09 AM EST Katlyn Dominguez MD LAB BLOOD ORDERABLES Final Res ult Performing Organization Address [facility] de Phone Number [facility] [address] [place] [phone] * (ABNORMAL) Lipid Panel, Standard (09/18/2024 9:05 AM EST) Triglycerides 136 <150 mg/dL [facility] Comment:Desirable Triglyceri de: less than 150 mg/dLBorderline High Triglyceride 150-199 mg/dLHigh Triglyceride: 200-499 mg/dLVery High Triglyceride: greater than or equal to 5OO mg/dL Cholesterol 204(H) <200 mg/dL [facility] Comment:Desirable Cholestero l: less than 200 mg/dLBorderline High Cholesterol: 200-239 mg/dLHigh Cholesterol: greater than 239 mg/dL LDL Cholesterol Calculated 128(H) <100 mg/dL [facility] Comment:Desirable LDL: less than 100 mg/dLNear Optimal/Above Optimal LDL: 110- 129 mg/dLBorderline High LDL: 130-159 mg/dLHigh LDL: 160-189 mg/dLVery High LDL: greater than or equal to 190 mg/dL HDL Cholesterol 49 >40 mg/dL [facility] Comment:Desirable HDL: great er than 40 mg/dL Note: This HDL assay may give artificially low results in patients with liver disease. Blood Venous blood specimen / Unknown 09/18/2024 9:05 AM EST 09/18/2024 11:09 AM EST Katlyn Dominguez MD LAB BLOOD ORDERABLES Final Res ult Performing Organization Address [facility] Co de Phone Number [facility] [address] [place] [phone] * (ABNORMAL) Comprehensive Metabolic Panel (09/18/2024 9:05 AM EST) Sodium 138 135 - 145 mmol/L [facility] Potassium 3.8 3.3 - 5.1 mmol/L [facility] Chloride 105 96 - 108 mmol/L [facility] Carbon Dioxide 26 22 - 29 mmol/L [facility] Anion Gap 11(L) 12 - 20 [facility] Urea Nitrogen (BUN) 12 9 - 16 mg/dL [facility] Creatinine, Serum 0.97 0.5 - 1.4 mg/dL [facility] Estimated Glomerular Filt Rate >60 [facility] Comment:Chronic Kidney Disea se: Estimated GFR < 60 mL/min/1.52f0Uaoizl Kidney Disease: Estimated GFR < 15 mL/min/1.73m2 Glucose 105 60 - 115 mg/dL [facility] Calcium 9.4 8.4 - 10.2 mg/dL [facility] Bilirubin, Total 0.6 0.0 - 1.0 mg/dL [facility] Aspartate Amino Transferase 32 5 - 37 U/L [facility] Alanine Aminotransferase 20 0 - 40 U/L [facility] Total Protein 6.9 6.5 - 8.0 g/dL [facility] Albumin Level 4.3 3.5 - 5.0 g/dL [facility] Alkaline Phosphatase 82 39 - 117 U/L [facility] Blood Venous blood specimen / Unknown 09/18/2024 9:05 AM EST 09/18/2024 11:09 AM EST us Katlyn Dominguez MD LAB BLOOD ORDERABLES Final Res ult [facility] [address] [place] [address] [phone] from Last 3 Months Insurance MEDICARE Member Subscriber Plan / Payer (Ef fective 2022-Present) Name:Clemente Mathews Member ID:[id number] Relation to Subscriber:Self Name:Clemente Mathews Subscriber ID:[id number] Payer ID:STATE Group ID:Not on file Type:Medicare Address: [place] [employer] [facility].[address] [phone] [facility] Care Teams Technical Support Associate Relationship Specialty Start Date End Date Katlyn Dominguez MD [address] [place] [phone] PCP - General Family Medicine 12/14/20
--- OUTSIDE RECORDS SUMMARY | 2024-11-24 16:07 | XMS_ITS | Encounter Summary ---
Author Organization [employer] Address [address] [facility] 7t [place] [address] Care Team Providers Care Sports Bookmaker Name Role Phone Katlyn Dominguez MD Primary Care Provider [phone] Encounter Details Date Type Department Care Team (Late st Contact Info) Description 01/23/[address] [facility] [address] [place] [address] Phyllis Vázquez LPN Social History Tobacco Use Types Packs/Day Years Used Date Smoking Tobacco: Never Assessed Sex and Gender Information Value Date Recorded Sex Assigned at Male 08/28/2022 10:21 AM EDT Legal Sex Male 10:21 AM EDT Gender Identity Male 08/28/2022 10:21 AM EDT Sexual Orientation Choose not to disclose 2021 10:21 AM EDT COVID-19 Exposure Response Date Recorded In the last 10 days, have yo u been in contact with someone who was confirmed or suspected to have Coronavirus/COVID-19? No / Unsure 01/22/2023 8:48 AM EDT documented as of this encounter Plan of Treatment Not on file documented as of this encounter Visit Diagnoses Not on filedocumented in this encounter Care Teams Sports Bookmaker Relationship Specialty Start Date End Date Katlyn Dominguez MD [address] [place] [address] PCP - General Family Medicine 12/14/20 documented as of this encounter
== END 2024-11-24 11:11 | disposition home or self-care (01) ==
LOC: HO.CT 11:10
PROVIDERS: PCP General Practice; Visit Provider Physician Assistant Medical
DX: Z12.2 Encounter for screening for malignant neoplasm of respiratory organs (principal); F17.210 Nicotine dependence, cigarettes, uncomplicated
CPT/HCPCS: 71271

== ENCOUNTER → 2024-11-24 11:12 | Outpatient (BNV) | payer MEDICARE, SELFPAY | PROVIDERS: PCP General Practice; Visit Provider Radiology Diagnostic Radiology | DX: F17.210 Nicotine dependence, cigarettes, uncomplicated (principal) | CPT/HCPCS: 71271 ==

== ENCOUNTER 2024-12-10 14:30 | Outpatient (AMB) | payer MEDICARE, SELFPAY ==
[2024-12-10 14:47] VITALS: BP 104/64; PULSE 77; O2SAT 98; BMI 25.0
--- NOTE | 2024-12-10 14:47 | A.OFFVIS_ITS ---
Vital Signs 12/10/24 14:47 Height 5 ft 8 in Weight 164 lb 3.91 oz BMI 25.0 BP 104/64 Blood Pressure Location Rt brachial Position Sitting Pulse 77 Pulse Source Doppler Pulse Oximetry (%) 98 Oxygen Delivery Method Room Air Intake Visit Reasons: Pulmonary Nodules/Abnormal LDCT Allergies No Known Allergies Allergy (Verified 12/10/24 14:51) HPI HPI Pulmonary Nodules/Abnormal LDCT: Details: 64-year-old gentleman active 50+ pack-year smoker referred from lung cancer screening program for increasing left lobe nodule. Patient denies dyspnea on exertion. He does not have recent pulmonary function testing and is currently not using inhaled bronchodilators. Patient denies family history of lung disease. [facility] Medical History (Updated 12/10/24 @ 15:17 by Jcarlos Pimentel MD) Coronary artery calcification seen on CAT scan Pulmonary nodules History of diabetes mellitus, type II Nicotine dependence, cigarettes, uncomplicated Hypertension Surgical History History of colonoscopy History of shoulder surgery History of lumbar surgery Social History (Updated 12/10/24 @ 14:53 by Phyllis Botello [facility]) Alcohol intake: never Patient Tobacco Use Status: Current everyday Tobacco user Tobacco use type: Cigarette Years Smoked: onset 9yo, 1ppd x 53yrs, 50pyh Substance Use Type: Marijuana Current occupational status: disabled Review of Systems Const Denies daytime sleepiness, Denies excessive sweating, Denies fatigue, Denies fever(s), Denies lethargy, Denies malaise, Denies night sweats, Denies snoring and Denies weight loss Eyes Denies blurry vision and Denies itchy eyes ENT Denies nasal congestion, Denies post nasal drip, Denies sinus pain, Denies sinus pressure and Denies other ( Thrush) Card Denies chest pain, Denies pedal edema, Denies dyspnea, Denies orthopnea and Denies paroxysmal nocturnal dyspnea Resp Denies cough, Denies hemoptysis, Denies excessive phlegm production, Denies dyspnea, Denies snoring and Denies wheezing GI Denies abdominal pain and Denies heartburn Musc Denies myalgias, Denies arthralgias and Denies joint swelling Skin/Breast Denies rash Neuro Denies memory loss and Denies seizure-like activity Psych Denies abnormal sleep pattern, Denies anxiety and Denies memory loss Endo Denies excessive sweating, Denies fatigue and Denies heat intolerance José Manuel/Lymph Denies easy bruising Aller/Immun Denies itchy eyes, Denies seasonal rhinorrhea and Denies wheezing Physical Exam Vital Signs: Last Vital Signs Pulse 77 12/10/24 14:47 BP 104/64 12/10/24 14:47 Pulse Ox 98 12/10/24 14:47 Oxygen Delivery Method Room Air 12/10/24 14:47 BMI result Body Mass Index 25.0 Const General: no acute distress and alert Nutritional Appearance: not obese Orientation/consciousness: Other orientation findings ( oriented) HEENT Head: Yes atraumatic Eyes General: appearance normal, both eyes and all related structures Sclerae: sclerae normal EOM: EOMs intact bilaterally Neck Neck: Yes supple Lymphatic: no lymphadenopathy noted Resp Effort & Inspection: normal respiratory effort and no use of accessory muscles Auscultation: clear to auscultation bilaterally Cardio Rate: regular rate Rhythm: regular rhythm Heart sounds: no gallops, no murmurs and no rubs Skin General skin exam: other ( warm) Extrem General: No clubbing, No cyanosis and No edema Assessment & Plan Assessment & Plan (1) COPD (chronic obstructive pulmonary disease): Code(s): J44.9 - Chronic obstructive pulmonary disease, unspecified Category: Medical Plan: Likely underlying COPD of unclear severity. Will obtain full PFT. (2) Pulmonary nodule 1 cm or greater in diameter: Code(s): R91.1 - Solitary pulmonary nodule Category: Medical Plan: Increasing left lower lobe pulmonary. Will request IR biopsy. Orders: Orders CT biopsy lung LT Today R91.1 - Solitary pulmonary nodule PFT pulmonary function test Today J44.9 - Chronic obstructive pulmonary disease, unspecified Coding Level of Care Code New Pt Level 4 (95593) Diagnoses COPD (chronic obstructive pulmonary disease) J44.9 Pulmonary nodule 1 cm or greater in diameter R91.1
--- OUTSIDE RECORDS SUMMARY | 2024-12-10 15:47 | XMS_ITS | Encounter Summary ---
Author Organization [employer] Address [address] [facility] 7t [place] [address] Care Team Providers Care Goal Umpire Name Role Phone Katlyn Dominguez MD Primary Care Provider Encounter Details Date Type Department Care Team ([facility] st Contact Info) Description 10/24/2024 Orders Only [facility] MEDICINE [address] [place], [place] [phone] Katlyn Dominguez MD [address] [place], [place] [phone] Social History Tobacco Use Types Packs/Day Years [...] documented as of this encounter Care Teams Goal Umpire Relationship Specialty Start Date End Date Katlyn Dominguez MD [address] [place] [phone] PCP - General Family Medicine 12/14/20 documented as of this encounter
--- OUTSIDE RECORDS SUMMARY | 2024-12-10 15:47 | XMS_ITS | Encounter Summary ---
Author Organization [employer] Address [address] [facility] 7t [place] [address] Care Team Providers Care Center Punch Operator Name Role Phone Katlyn Dominguez MD Primary Care Provider [phone] Reason for Visit * Reason Onset Date Comments FYI 12/31/2023 Encounter Details Date Type Department Care Team (Late st Contact Info) Description 12/31/2023 Telephone [facility] MEDICINE [address] [place] [address] Katlyn Dominguez MD [address] [place], [place] [phone] FYI Social History Tobacco Use Types Packs/Day [...] States that they were able to processhis [employer] insurance and he should be able to [...] - 12/31/2023 9:07 AM EST Tc from [facility] lung cancer screening dept would like to inform PCP that due to abnormal finding in CT scan they have ordered pt a PET scan however stated [employer] insurance is currently inactive and was billed through medicare. Pt will have to pay 20% however pt has refused to pay. [facility] would like for RN or PCP to please reach out to pt. documented in this encounter Plan of Treatment Not on file documented as of this encounter Visit Diagnoses Not on filedocumented in this encounter Care Teams Center Punch Operator Relationship Specialty Start Date End Date Katlyn Dominguez MD [address] [place] [phone] PCP - General Family Medicine 12/14/20 documented as of this encounter
--- OUTSIDE RECORDS SUMMARY | 2024-12-10 15:47 | XMS_ITS | Clinical Summary ---
Author Organization [employer] Address [address] [facility] 7t [place] [address] Care Team Providers Care Patient Relations Liaison Name Role Phone Katlyn Dominguez MD Primary Care Provider [phone] Allergies No known active allergies Medications terbinafine [...] Plan (11/26/2023 10:38 AM EST): Referral to [facility] Annual physical exam 05/23/2023 Assessment & Plan [...] Encounters Date Type Department Care Team Description 11/24/2024 Orders Only [facility] External Provider, [facility] 10/24/2024 Orders Only [facility] MEDICINE [address] [place] [address] Katlyn Dominguez MD 10/06/2024 Telephone [facility] MEDICINE [address] [place] [address] Katlyn Dominguez MD callback requested 09/10/2024 4:00 PM EST Office Visit [facility] MEDICINE [address] [place] [address] Katlyn Dominguez MD Essential hypertension (Primary Dx); Encounter for immunization; Screen for colon cancer; Abnormal chest CT; Inadequate housing utilities; Moderately severe major depression (CMS/HCC); Food insecurity; Smoker; Housing situation unstable 09/10/2024 Travel from Last 3 Months Immunizations Name Administration [...] housing situation today? I have issavicki moy 09/10/[address] you [...] 1970 Hepatitis C Screening 1976 COVID-19 Vaccine (4 - 2023-2 5 season) 2024 10/25/2021, 04/01/2021, 03/04/2021 Influenza [...] Zoster Vaccines Completed 03/24/2022, 07/29/2019 Pneumococcal Vaccine: 50+ Years Completed 09/10/2024, 03/13/2022 HIB Vaccines Aged [...] Procedure Name Priority Date/Time Associated Diagnosis Comments LDCT LUNG SCREENING Routine 11/24/2024 5 :42 PM EST LIPID PANEL, STANDARD Routine 09/18/2024 9:05 AM EST Essential hypertension CBC WITH AUTO DIFFERENTIAL Routine 09/18/2024 9:05 AM EST Essential hypertension COMPREHENSIVE METABOLIC PANEL Routine 09/18/2024 9:05 AM EST Essential hypertension from Last 3 Months Results * CT Lung Screening Low dose (11/24/2024 5:42 PM EST) Anatomical Region Laterality Modality Lung Computed Tomogra phy 11/24/2024 5:42 PM EST Narrative 11/24/2024 5:43 PM EST ? [facility] ?[address] ?[place] [address] ? CT Scan Report ? Signed ? Patient: Olivares Victoria,Clemente ?MR#: ?? [id number] ? : 1960 ?Acct:[id number] ? Age/Sex: 64 / M ?ADM Date: 11/24/24 ? Loc: HO.CT ? Attending Dr: Keren Morrissey PA-C ? Ordering Physician: Keren Morrissey PA-C ?? Date of Service: 11/24/24 ?? Procedure(s): CT lung screening ?? Accession Number(s): [id number] ? cc: Katlyn Dominguez; Keren Morrissey PA-C ? Report Number: ?? [id number]: Total DLP = ?? 44.00 mGy-cm ? CLINICAL HISTORY: F17.210 - Nicotine dependence, cigarettes, uncomplicated ? CT lung cancer screening (LDCT) ? Comparison: CT/[place]/SR - CT LUNG SCREEN FOLLOW UP - 11/21/23 14:12 EST ?? CT/NJ/SR - CT LUNG SCREENING - 08/09/23 10:25 EDT ? Technique: ?? Axial CT images of the chest using low-dose technique. Referring provider ?? counseled the patient on shared decision-making for LDCT screening. ?? Additional counseling was provided on smoking cessation. ?? Effective radiation dose total: DLP 34.1 mGycm, CTDIvol 1.1 mGy. ? Findings: ?? Multiple bilateral pulmonary nodules as seen previously. These are all ?? unchanged except for a left lower lobe pulmonary nodule within the ?? superior segment which measures 7 x 10 mm in size. There is spiculation is ?? nodule with subtle adjacent ground-glass density. ?? No focal areas of consolidation. ?? No pleural effusion or pneumothorax. ?? No enlarged lymph nodes. ?? Minor bilateral gynecomastia. ?? Dense coronary artery calcification. ?? No free fluid or free air within the upper abdomen. ?? No acute bony lesions. ? Impression: ?? Interval increase in size of the previously described left lower lobe ?? pulmonary nodule. Prior report suggested PET-CT be performed. I am unsure ?? as to whether this has been performed. Clinical correlation is advised. ?? Category 4B: Suspicious. PET-CT suggested if not previously performed. ? Category 1: Normal; continue annual screening ?? Category 2: Benign appearance or behavior, continue annual screening ?? Category 3: Probably benign, [address] recommended ?? Category 4A: Suspicious, [address] recommended; may consider PET/CT ?? Category 4B: Suspicious, Additional diagnostics and/or tissue sampling ?? recommended ?? Category 4X: Suspicious, Additional diagnostics and/or tissue sampling ?? recommended ?? Category 0: Recalls (incomplete screen due to Incomplete coverage, Noise, ?? Respiratory motion, Expiration, Obscured by acute abnormality) ? This document has been electronically signed by: Amilcar Roberson MD on ?? 11/24/2024 17:42:19 ? Dictated By: ?Amilcar Roberson MD ? Signed By: ?<Electronically signed by Amilcar Roberson MD in OV> ? 11/24/24 1743 ? DD/ 1742 ? TD/TT: 11/24/24 1742 ? Nuclear Powerplant Supervisor: ? Procedure Note Christen, Image - 11/24/[address] [place] [address] [address] Scan Report Signed Patient: Lauren Mathews#: [id number] : 9Acct:[id number] Age/Sex: 64 / MADM Date: 11/24/24 Loc: HO.CT Attending Dr: Keren Morrissey PA-C Ordering Physician: Keren Morrissey PA-C Date of Service: 11/24/24 Procedure(s): CT lung screening Accession Number(s): [id number] cc: Katlyn Dominguez; Keren Morrissey PA-C Report Number: [id number]: Total DLP = 44.00 mGy-cm CLINICAL HISTORY: F17.210 - Nicotine dependence, cigarettes, uncomplicated CT lung cancer screening (LDCT) Comparison: CT/[place]/SR - CT LUNG SCREEN FOLLOW UP - 11/21/23 14:[address]/[place]/SR - CT LUNG SCREENING - 08/09/23 10:25 EDT Technique: Axial CT images of the chest using low-dose technique. Referring provider counseled the patient on shared decision-making for LDCT screening. Additional counseling was provided on smoking cessation. Effective radiation dose total: DLP 34.1 mGycm, CTDIvol 1.1 mGy. Findings: Multiple bilateral pulmonary nodules as seen previously. These are all unchanged except for a left lower lobe pulmonary nodule within the superior segment which measures 7 x 10 mm in size. There is spiculation is nodule with subtle adjacent ground-glass density. No focal areas of consolidation. No pleural effusion or pneumothorax. No enlarged lymph nodes. Minor bilateral gynecomastia. Dense coronary artery calcification. No free fluid or free air within the upper abdomen. No acute bony lesions. Impression: Interval increase in size of the previously described left lower lobe pulmonary nodule. Prior report suggested PET-CT be performed. I am unsure as to whether this has been performed. Clinical correlation is advised. Category 4B: Suspicious. PET-CT suggested if not previously performed. Category 1: Normal; continue annual screening Category 2: Benign appearance or behavior, continue annual screening Category 3: Probably benign, [address] recommended Category 4A: Suspicious, [address] recommended; may consider PET/CT Category 4B: Suspicious, Additional diagnostics and/or tissue sampling recommended Category 4X: Suspicious, Additional diagnostics and/or tissue sampling recommended Category 0: Recalls (incomplete screen due to Incomplete coverage, Noise, Respiratory motion, Expiration, Obscured by acute abnormality) This document has been electronically signed by: Amilcar Roberson MD on 11/24/2024 17:42:19 Dictated By: Amilcar Roberson MD Signed By: <Electronically signed by Amilcar Roberson MD in OV> 11/24/241742 DD/ 41 TD/TT: 11/24/241741 Nuclear Powerplant Supervisor: [facility] External Provider IMG CT PROCEDURES Final Result * (ABNORMAL) CBC auto differential (09/18/2024 9:05 AM EST) White Blood Count 9.6 4.8 - 10.8 X10*3/uL [facility] Red Blood Count 4.79 4.60 - 5.80 X10*6/uL [facility] Hemoglobin 14.5 14.0 - 18.0 g/dl [facility] Hematocrit 42.1 42.0 - 52.0 % [facility] Mean Corpuscular Volume 87.9 80.0 - 98.0 fL [facility] Mean Corpuscular Hemoglobin 30.3 27.0 - 33.0 pg [facility] Mean Corpuscular HGB Conc 34.4 31.0 - 36.0 g/dl [facility] Red Cell Distribution Width 13.5 11.0 - 16.0 % [facility] Platelet Count 208 160 - 400 X10*3/uL [facility] Mean Platelet Volume 11.4 9.4 - 12.4 fL [facility] Neutrophils Percent Auto 66.6 45 - 73 % [facility] Imm Gran Pct Auto 0.4 0.0 - 0.4 % [facility] Lymphocytes Percent Auto 25.8 20 - 40 % [facility] Monocytes Percent Auto 5.7 2 - 11 % [facility] Eosinophils Percent Auto 1.1 0 - 4 % [facility] Basophils Percent Auto 0.4 0 - 2 % [facility] NRBC Pct Auto 0.0 0.0 - 0.2 /100WBC [facility] Neutrophils Absolute Auto 6.4 2.0 - 8.3 x10*3/uL [facility] Imm Gran Abs Auto 0.04(H) 0.00 - 0.03 X10*3/uL [facility] Lymphocytes Absolute Auto 2.5 1.2 - 4.9 X10*3/uL [facility] Monocytes Absolute Auto 0.6 0.1 - 1.2 X10*3/uL [facility] Eosinophils Absolute Auto 0.1 0.0 - 0.4 X10*3/uL [facility] Basophils Absolute Auto 0.0 0.0 - 0.2 X10*3/uL [facility] NRBC Abs Auto 0.000 0.0 - 0.012 X10*3/uL [facility] Blood Venous blood specimen / Unknown 09/18/2024 9:05 AM EST 09/18/2024 11:09 AM EST us Katlyn Dominguez MD LAB BLOOD ORDERABLES Final Res ult [facility] [address] [place] [address] [phone] * (ABNORMAL) Lipid Panel, Standard (09/18/2024 9:05 AM EST) Triglycerides 136 <150 mg/dL [facility] Comment:Desirable Triglyceri de: less than 150 mg/dLBorderline High Triglyceride 150-199 mg/dLHigh Triglyceride: 200-499 mg/dLVery High Triglyceride: greater than or equal to 5OO mg/dL Cholesterol 204(H) <200 mg/dL [facility] Comment:Desirable Cholestero l: less than 200 mg/dLBorderline High Cholesterol: 200-239 mg/dLHigh Cholesterol: greater than 239 mg/dL LDL Cholesterol Calculated 128(H) <100 mg/dL [facility] Comment:Desirable LDL: less than 100 mg/dLNear Optimal/Above Optimal LDL: 110- 129 mg/dLBorderline High LDL: 130-159 mg/dLHigh LDL: 160-189 mg/dLVery High LDL: greater than or equal to 190 mg/dL HDL Cholesterol 49 >40 mg/dL [facility] Comment:Desirable HDL: great er than 40 mg/dL Note: This HDL assay may give artificially low results in patients with liver disease. Blood Venous blood specimen / Unknown 09/18/2024 9:05 AM EST 09/18/2024 11:09 AM EST us Katlyn Dominguez MD LAB BLOOD ORDERABLES Final Res ult [facility] [address] [place] [address] [phone] * (ABNORMAL) Comprehensive Metabolic Panel (09/18/2024 9:05 AM EST) Sodium 138 135 - 145 mmol/L [facility] Potassium 3.8 3.3 - 5.1 mmol/L [facility] Chloride 105 96 - 108 mmol/L [facility] Carbon Dioxide 26 22 - 29 mmol/L [facility] Anion Gap 11(L) 12 - 20 [facility] Urea Nitrogen (BUN) 12 9 - 16 mg/dL [facility] Creatinine, Serum 0.97 0.5 - 1.4 mg/dL [facility] Estimated Glomerular Filt Rate >60 [facility] Comment:Chronic Kidney Disea se: Estimated GFR < 60 mL/min/1.47m2Smlgwx Kidney Disease: Estimated GFR < 15 mL/min/1.73m2 Glucose 105 60 - 115 mg/dL [facility] Calcium 9.4 8.4 - 10.2 mg/dL [facility] Bilirubin, Total 0.6 0.0 - 1.0 mg/dL [facility] Aspartate Amino Transferase 32 5 - 37 U/L [facility] Alanine Aminotransferase 20 0 - 40 U/L [facility] Total Protein 6.9 6.5 - 8.0 g/dL [facility] Albumin Level 4.3 3.5 - 5.0 g/dL [facility] Alkaline Phosphatase 82 39 - 117 U/L [facility] Blood Venous blood specimen / Unknown 09/18/2024 9:05 AM EST 09/18/2024 11:09 AM EST us Katlyn Dominguez MD LAB BLOOD ORDERABLES Final Res ult [facility] [address] [place] [address] [phone] from Last 3 Months Insurance MEDICARE Member Subscriber Plan / Payer ( fective 2022-Present) Name:Clemente Mathews Member ID:[id number] Relation to Subscriber:Self Name:Clemente Mathews Subscriber ID:[id number] Payer ID:[id number] Group ID:Not on file Type:Medicare Address: [facility].[address] [address] [facility] Care Teams Patient Relations Liaison Relationship Specialty Start Date End Date Katlyn Dominguez MD [address] [place] [phone] PCP - General Family Medicine 12/14/20
--- OUTSIDE RECORDS SUMMARY | 2024-12-10 15:47 | XMS_ITS | Encounter Summary ---
Author Organization [employer] Address [address] [facility] [address]t [place] [address] Care Team Providers Care Cash Posting Clerk Name Role Phone Katlyn Dominguez MD Primary Care Provider [phone] Encounter Details Date Type Department Care Team ([facility] st Contact Info) Description 01/23/2023 Orders Only [facility]EDS [address] [place] [address] Phyllis Vázquez LPN Social History Tobacco Use [...] on filedocumented in this encounter Care Teams Cash Posting Clerk Relationship Specialty Start Date End Date Katlyn Dominguez MD [address] [place] [address] PCP - General Family Medicine 12/14/20 documented as of this encounter
--- OUTSIDE RECORDS SUMMARY | 2024-12-10 15:47 | XMS_ITS | Encounter Summary ---
Author Organization [employer] Address [address] [facility] [address] [place] [address] Care Team Providers Care Warpman Name Role Phone Katlyn Dominguez MD Primary Care Provider [phone] Encounter Details Date Type Department Care Team (Late st Contact Info) Description 11/24/2024 Orders Only [facility] External Provider, [facility] Social History Tobacco Use Types Packs/Day Years [...] on file documented as of this encounter Procedures Procedure Name Priority Date/Time Associated Diagnosis Comments LDCT LUNG SCREENING Routine 11/24/2024 5 :42 PM EST documented in this encounter Results * CT Lung Screening Low dose (11/24/2024 5:42 PM EST) Anatomical Region Laterality Modality Lung Computed Tomogra phy 11/24/2024 5:42 PM EST Narrative 11/24/2024 5:43 PM EST ? [facility] ?[address] ?[place] [address] ? CT Scan Report ? Signed ? Patient: Clemente Mathews ?MR#: ?? [id number] ? : 1960 ?Acct:[id number] ? Age/Sex: 64 / M ?ADM Date: 11/24/24 ? Loc: HO.CT ? Attending Dr: Keren Morrissey PA-C ? Ordering Physician: Keren Morrissey PA-C ?? Date of Service: 11/24/24 ?? Procedure(s): CT lung screening ?? Accession Number(s): [id number] ? cc: Katlyn Dominguez; Keren Morrissey PA-C ? Report Number: ?? [id number]: Total DLP = ?? 44.00 mGy-cm ? CLINICAL HISTORY: F17.210 - Nicotine dependence, cigarettes, uncomplicated ? CT lung cancer screening (LDCT) ? Comparison: CT/SC/SR - CT LUNG SCREEN FOLLOW UP - 11/21/23 14:12 EST ?? CT/SC/SR - CT LUNG SCREENING - 08/09/23 10:25 [...] in OV> ? 11/24/24 1743 ? DD/ ? TD/TT: 11/24/242 ? Plastic Press Operator: ? Procedure Note Donotuseinterpreter, Image - 11/24/[address] [address] [address] Scan Report Signed Patient: Lauren Mathews#: [id number] : 9Acct:[id number] Age/Sex: 64 / MADM Date: 11/24/24 Loc: HO.CT Attending Dr: Keren Morrissey PA-C Ordering Physician: Keren Morrissey PA-C Date of Service: 11/24/24 Procedure(s): CT lung screening Accession Number(s): [id number] cc: Katlyn Dominguez; Keren Morrissey PA-C Report Number: [id number]: Total DLP = 44.00 mGy-cm CLINICAL HISTORY: F17.210 - Nicotine dependence, cigarettes, uncomplicated CT lung cancer screening (LDCT) Comparison: CT/SC/SR - CT LUNG SCREEN FOLLOW UP - 11/21/23 14:[address]/SC/SR - CT LUNG SCREENING - 08/09/23 10:25 [...] in OV> 11/24/241742 DD/ 41 TD/TT: 11/24/241741 Plastic Press Operator: [facility] External Provider IMG CT PROCEDURES Final Result documented in this encounter Visit Diagnoses Not on filedocumented in this encounter Additional Health Concerns Assessment Noted Time PHQ-9 Depression Total Score: 17 024 3:51 PM EST documented as of this encounter Care Teams Warpman Relationship Specialty Start Date End Date Katlyn Dominguez MD [address] [place] [address] PCP - General Family Medicine 12/14/20 documented as of this encounter
--- OUTSIDE RECORDS SUMMARY | 2024-12-10 15:47 | XMS_ITS | Encounter Summary ---
Author Organization [employer] Address [address] 7t [place] [address] Care Team Providers Care Retread Builder Name Role Phone Katlyn Dominguez MD Primary Care Provider [phone] Reason for Visit * Reason Comments Med Refill Encounter Details Date Type Department Care Team ([facility] st Contact Info) Description 05/30/2024 Refill [facility] MEDICINE [address] [place], [place] [phone] Katlyn Dominguez MD [address] [place], [place] [phone] Social History Tobacco Use Types Packs/Day Years [...] on filedocumented in this encounter Care Teams Retread Builder Relationship Specialty Start Date End Date Katlyn Dominguez MD [address] [place] [id number] PCP - General Family Medicine 12/14/20 documented as of this encounter
== END 2024-12-10 15:10 | disposition home or self-care (01) ==
PROVIDERS: PCP General Practice; Referring Provider Physician Assistant Medical; Visit Provider Internal Medicine Pulmonary Disease
DX: J44.9 Chronic obstructive pulmonary disease, unspecified (principal); R91.1 Solitary pulmonary nodule
CPT/HCPCS: 99204

== ENCOUNTER → 2024-12-10 14:30 | Outpatient (BNVA) | payer MEDICARE, SELFPAY | PROVIDERS: PCP General Practice; Referring Provider Physician Assistant Medical; Visit Provider Internal Medicine Pulmonary Disease | DX: J44.9 Chronic obstructive pulmonary disease, unspecified (principal); R91.1 Solitary pulmonary nodule | CPT/HCPCS: 99202 ==

== ENCOUNTER 2024-12-30 12:13 | Outpatient (REF) | payer MEDICARE, OTHER, SELFPAY ==
--- NOTE | 2024-12-30 12:30 | PFT_ITS ---
Indication: COPD Spirometry [FEV1 to FVC 59%; FEV1 2.49 L; FVC 4.25 L. No significant response to bronchodilators noted.] Lung Volumes [Total lung capacity 101% predicted; residual volume 105% predicted] Diffusion Capacity [DLCO 70% predicted] Comparisons [None] Interpretation [There is an obstructive ventilatory defect consistent with mild COPD. No significant response to bronchodilators noted. Lung volumes are normal and diffusing capacity is mildly impaired. Clinical correlation warranted.] MTDD
[2024-12-30 13:07] VITALS: PULSE 70
--- OUTSIDE RECORDS SUMMARY | 2024-12-30 15:19 | XMS_ITS | Encounter Summary ---
Author Organization [employer] Address [address] [facility] 7t [place] [address] Care Team Providers Care Drapery And Upholstery Measurer Name Role Phone Katlyn Dominguez MD Primary Care Provider [phone] Encounter Details Date Type Department Care Team ([facility] st Contact Info) Description 01/23/2023 Orders Only [facility] [address] [place] [address] Phyllis Vázquez LPN Social History Tobacco Use [...] on filedocumented in this encounter Care Teams Drapery And Upholstery Measurer Relationship Specialty Start Date End Date Katlyn Dominguez MD [address] [place] [address] PCP - General Family Medicine 12/14/20 documented as of this encounter
--- OUTSIDE RECORDS SUMMARY | 2024-12-30 15:19 | XMS_ITS | Clinical Summary ---
Author Organization [employer] Address [address] [facility] 7t [place] [address] Care Team Providers Care Ship Washer Name Role Phone Katlyn Dominguez MD Primary Care Provider [phone] Allergies No known active allergies Medications terbinafine [...] Plan (11/26/2023 10:38 AM EST): Referral to [facility] Annual physical exam 05/23/2023 Assessment & Plan [...] Department Care Team Description 11/24/2024 Orders Only [facility] External Provider, [facility] 10/24/2024 Orders Only [facility] MEDICINE [address] [place] [address] Katlyn Dmoinguez MD 10/06/2024 Telephone [facility] MEDICINE [address] [place] [address] Katlyn Dominguez MD callback requested from Last [...] EST Narrative 11/24/2024 5:43 PM EST ? [facility] ?[address] ?[place] [address] ? CT Scan Report ? Signed ? Patient: Olivares Victoria,Clemente ?MR#: ?? [id number] ? : 1960 ?Acct:[id number] ? Age/Sex: 64 / M ?ADM Date: 01/27/25 ? Loc: HO.CT ? Attending Dr: Keren Morrissey PA-C ? Ordering Physician: Keren Morrissey PA-C ?? Date of Service: 11/24/24 ?? Procedure(s): CT lung screening ?? Accession Number(s): [id number] ? cc: Katlyn Dominguez; Keren Morrissey PA-C ? Report Number: ?? [id number]: Total DLP = ?? 44.00 mGy-cm ? [...] ? DD/ 41 ? TD/TT: 11/24/241741 ? Biologics Specialist: ? Procedure Note Christen, Image - 11/24/[address] [place] [address] [address] Scan Report Signed Patient: Lauren Mathews#: [id number] : 9Acct:[id number] Age/Sex: 64 / MADM Date: 11/24/24 Loc: HO.CT Attending Dr: Keren Morrissey PA-C Ordering Physician: Keren Morrissey PA-C Date of Service: 11/24/24 Procedure(s): CT lung screening Accession Number(s): [id number] cc: Katlyn Dominguez; Keren Morrissey PA-C Report Number: [id number]: Total DLP = 44.00 mGy-cm CLINICAL HISTORY: [...] This document has been electronically signed by: Amilcra Roberson MD on 11/24/2024 17:42:19 Dictated By: Amilcar Roberson MD Signed By: <Electronically signed by Amilcar Roberson MD in OV> 11/24/241742 DD/ 41 TD/TT: 11/24/241741 Biologics Specialist: [facility] External Provider IMG CT PROCEDURES Final Result * (ABNORMAL) Lipid Panel, Standard (09/18/2024 9:05 AM EST) Triglycerides 136 <150 mg/dL [facility] Comment:Desirable Triglyceri de: less than 150 mg/dLBorderline High Triglyceride 150-199 mg/dLHigh Triglyceride: 200-499 mg/dLVery High Triglyceride: greater than or equal to 5OO mg/dL Cholesterol 204(H) <200 mg/dL [facility] Comment:Desirable Cholestero l: less than 200 mg/dLBorderline High Cholesterol: 200-239 mg/dLHigh Cholesterol: greater than 239 mg/dL LDL Cholesterol Calculated 128(H) <100 mg/dL [facility] Comment:Desirable LDL: less than 100 mg/dLNear Optimal/Above Optimal LDL: 110- 129 mg/dLBorderline High LDL: 130-159 mg/dLHigh LDL: 160-189 mg/dLVery High LDL: greater than or equal to 190 mg/dL HDL Cholesterol 49 >40 mg/dL [facility] Comment:Desirable HDL: great er than 40 mg/dL Note: This HDL assay may give artificially low results in patients with liver disease. Blood Venous blood specimen / Unknown 09/18/2024 9:05 AM EST 09/18/2024 11:09 AM EST us Katlyn Dominguez MD LAB BLOOD ORDERABLES Final Res ult [facility] [address] [place] [address] [phone] from Last 3 Months or Most Recently Relevant to Health Maintenance [place] [address] [place] [id number] [facility] FULL Care Teams Ship Washer Relationship Specialty Start Date End Date Katlyn Dominguez MD [address] [place] [phone] PCP - General Family Medicine 12/14/20
--- OUTSIDE RECORDS SUMMARY | 2024-12-30 15:19 | XMS_ITS | Encounter Summary ---
Author Organization [employer] Address [address] [facility] 7t [place] [address] Care Team Providers Care Wound Care Technician Name Role Phone Katlyn Dominguez MD Primary Care Provider [phone] Reason for Visit * Reason Comments Med Refill Encounter Details Date Type Department Care Team ([facility] st Contact Info) Description 05/30/[address] [facility] MEDICINE [address] [place], [place] [phone] Katlyn Dominguez MD 230 [place], [place] [phone] Social History Tobacco Use Types Packs/Day Years [...] on filedocumented in this encounter Care Teams Wound Care Technician Relationship Specialty Start Date End Date Katlyn Dominguez MD [address] [place] [phone] PCP - General Family Medicine 12/14/20 documented as of this encounter
--- OUTSIDE RECORDS SUMMARY | 2024-12-30 15:20 | XMS_ITS | Encounter Summary ---
Author Organization [employer] Address [address] [facility] 7t [place] [address] Care Team Providers Care Time Study Technologist Name Role Phone Katlyn Dominguez MD Primary Care Provider [phone] Encounter Details Date Type Department Care Team ([facility] st Contact Info) Description 10/24/2024 Orders Only [facility] MEDICINE [address] [place], [place] [phone] Katlyn Dominguez MD [address] [place], [place] [phone] Social History Tobacco Use Types Packs/Day Years [...] documented as of this encounter Care Teams Time Study Technologist Relationship Specialty Start Date End Date Katlyn Dominguez MD [address] [place] [address] PCP - General Family Medicine 12/14/20 documented as of this encounter
== END 2024-12-30 12:14 | disposition home or self-care (01) ==
LOC: HO.RESP 12:13
PROVIDERS: PCP General Practice; Visit Provider Internal Medicine Pulmonary Disease
DX: J44.9 Chronic obstructive pulmonary disease, unspecified (principal)
CPT/HCPCS: 94010; 94640; 94727; 94729

== ENCOUNTER → 2024-12-30 12:30 | Outpatient (BNV) | payer MEDICARE, SELFPAY | PROVIDERS: PCP General Practice; Visit Provider Hospitalist | DX: J44.9 Chronic obstructive pulmonary disease, unspecified (principal) | CPT/HCPCS: 94060; 94727; 94729 ==

== ENCOUNTER → 2025-01-12 12:03 | Outpatient (BNV) | payer MEDICARE, SELFPAY | PROVIDERS: PCP General Practice; Visit Provider Radiology Diagnostic Radiology | DX: R91.1 Solitary pulmonary nodule (principal) | CPT/HCPCS: 32408; 32551; 71045; 77002; 77012 ==

== ENCOUNTER 2025-01-12 14:35 | Outpatient (BNV) | payer MEDICARE, SELFPAY | END 2025-01-14 07:00 | PROVIDERS: Admitting Provider Physician Assistant; PCP General Practice; Visit Provider Radiology Diagnostic Radiology | DX: J95.811 Postprocedural pneumothorax (principal) | CPT/HCPCS: 71045 ==

== ENCOUNTER 2025-01-12 14:35 | Outpatient (BNV) | payer MEDICARE, SELFPAY | END 2025-01-13 07:00 | PROVIDERS: Admitting Provider Physician Assistant; PCP General Practice; Visit Provider Radiology Diagnostic Radiology | DX: J84.9 Interstitial pulmonary disease, unspecified (principal); J98.11 Atelectasis | CPT/HCPCS: 71045 ==

== ENCOUNTER 2025-01-12 14:35 | Inpatient (IN) | payer MEDICARE, OTHER, SELFPAY ==
--- OUTSIDE RECORDS SUMMARY | 2024-12-26 14:03 | XMS_ITS | Encounter Summary ---
Author Organization [employer] Address [address] [facility] 7t [place] [address] Care Team Providers Care Rehabilitation Inspector Name Role Phone Katlyn Dominguez MD Primary Care Provider [phone] Reason for Visit * Reason Comments Med Refill Encounter Details Date Type Department Care Team ([facility] st Contact Info) Description 05/30/2024 Refill [facility] MEDICINE [address] [place], [place] [phone] Katlyn Dominguez MD 230 [place], [place] [phone] Social History Tobacco Use Types Packs/Day Years [...] on filedocumented in this encounter Care Teams Rehabilitation Inspector Relationship Specialty Start Date End Date Katlyn Dominguez MD [address] [place] [id number] PCP - General Family Medicine 12/14/20 documented as of this encounter
--- OUTSIDE RECORDS SUMMARY | 2024-12-26 14:03 | XMS_ITS | Clinical Summary ---
Author Organization [employer] Address [address] [facility] 7t [place] [address] Care Team Providers Care Cruise Staff Member Name Role Phone Katlyn Dominguez MD Primary Care Provider [phone] Allergies No known active allergies Medications terbinafine [...] Plan (11/26/2023 10:38 AM EST): Referral to [facility] Annual physical exam 05/23/2023 Assessment & Plan [...] Department Care Team Description 11/24/2024 Orders Only [facility] External Provider, [facility] 10/24/2024 Orders Only [facility] [address] [place] [address] Katlyn Dominguez MD 10/06/2024 Telephone [facility] [address] [place] [address] Katlyn Dominguez MD callback requested from Last 3 Months Immunizations Name Administration [...] Diagnosis Comments LDCT LUNG SCREENING Routine 11/24/2024 5:42 PM EST LIPID PANEL, STANDARD Routine 09/18/2024 9:05 AM EST Essential hypertension from Last 3 Months or Most Recently Relevant to Health Maintenance Results * CT Lung Screening Low dose (11/24/2024 5:42 PM EST) Anatomical Region Laterality Modality Lung Computed Tomogra phy 11/24/2024 5:42 PM EST Narrative 11/24/2024 5:43 PM EST ? [facility] ?[address] ?[place] [address] ? CT Scan Report ? Signed ? Patient: Olivares Victoria,Clemente ?MR#: ?? [id number] ? : 1960 ?Acct:[id number] ? Age/Sex: 64 / M ?ADM Date: 01/27/25 ? Loc: HO.CT ? Attending Dr: Keren Morrissey PA-C ? Ordering Physician: Keren Morrissey PA-C ?? Date of Service: 11/24/24 ?? Procedure(s): CT lung screening ?? Accession Number(s): [id number] ? cc: Katlyn Dominguez; Keren Morrissey PA-C ? Report Number: ?? [id number]: Total DLP = ?? 44.00 mGy-cm ? CLINICAL HISTORY: F17.210 - Nicotine dependence, cigarettes, uncomplicated ? CT lung cancer screening (LDCT) ? Comparison: CT/MO/SR - CT LUNG SCREEN FOLLOW UP - 11/21/23 14:12 EST ?? CT/MO/SR - CT LUNG SCREENING - 08/09/23 10:25 [...] in OV> ? 11/24/24 1743 ? DD/ 41 ? TD/TT: 11/24/241741 ? Mottle Lay Up Operator: ? Procedure Note Christen, Image - 11/24/[address] [place] [address] [address] Scan Report Signed Patient: Lauren Mathews#: [id number] : 9Acct:[id number] Age/Sex: 64 / MADM Date: 11/24/24 Loc: HO.CT Attending Dr: Keren Morrissey PA-C Ordering Physician: Keren Morrissey PA-C Date of Service: 11/24/24 Procedure(s): CT lung screening Accession Number(s): [id number] cc: Katlyn Dominguez; Keren Morrissey PA-C Report Number: [id number]: Total DLP = 44.00 mGy-cm CLINICAL HISTORY: F17.210 - Nicotine dependence, cigarettes, uncomplicated CT lung cancer screening (LDCT) Comparison: CT/MO/SR - CT LUNG SCREEN FOLLOW UP - 11/21/23 14:[address]/MO/SR - CT LUNG SCREENING - 08/09/23 10:25 [...] in OV> 11/24/241742 DD/ 41 TD/TT: 11/24/241741 Mottle Lay Up Operator: [facility] External Provider IMG CT PROCEDURES Final Result * (ABNORMAL) Lipid Panel, Standard (09/18/2024 9:05 AM EST) Triglycerides 136 <150 mg/dL [facility] Comment:Desirable Triglyceri de: less than 150 mg/dLBorderline High Triglyceride 150-199 mg/dLHigh Triglyceride: 200-499 mg/dLVery High Triglyceride: greater than or equal to 5OO mg/dL Cholesterol 204(H) <200 mg/dL [facility] Comment:Desirable Cholestero l: less than 200 mg/dLBorderline High Cholesterol: 200-239 mg/dLHigh Cholesterol: greater than 239 mg/dL LDL Cholesterol Calculated 128(H) <100 mg/dL [facility] Comment:Desirable LDL: less than 100 mg/dLNear Optimal/Above Optimal LDL: 110- 129 mg/dLBorderline High LDL: 130-159 mg/dLHigh LDL: 160-189 mg/dLVery High LDL: greater than or equal to 190 mg/dL HDL Cholesterol 49 >40 mg/dL [facility] Comment:Desirable HDL: great er than 40 mg/dL Note: This HDL assay may give artificially low results in patients with liver disease. Blood Venous blood specimen / Unknown 09/18/2024 9:05 AM EST 09/18/2024 11:09 AM EST us Katlyn Dominguez MD LAB BLOOD ORDERABLES Final Res ult [facility] [address] [place] [address] [phone] from Last 3 Months or Most Recently Relevant to Health Maintenance Insurance [place] [address] [place] [id number] [facility] FULL Care Teams Cruise Staff Member Relationship Specialty Start Date End Date Katlyn Dominguez MD [address] [place] [phone] PCP - General Family Medicine 12/14/20
--- OUTSIDE RECORDS SUMMARY | 2024-12-26 14:03 | XMS_ITS | Encounter Summary ---
Author Organization [employer] Address [address] [facility] 7t [place] [address] Care Team Providers Care Sandblast Operator Name Role Phone Katlyn Dominguez MD Primary Care Provider [phone] Encounter Details Date Type Department Care Team (Late st Contact Info) Description 01/23/2023 Orders Only [facility] [address] [place] [address] Phyllis Vázquez LPN Social History Tobacco Use [...] on filedocumented in this encounter Care Teams Sandblast Operator Relationship Specialty Start Date End Date Katlyn Dominguez MD [address] [place] [address] PCP - General Family Medicine 12/14/20 documented as of this encounter
--- OUTSIDE RECORDS SUMMARY | 2024-12-26 14:03 | XMS_ITS | Encounter Summary ---
Author Organization [employer] Address [address] [facility] 7t [place] [address] Care Team Providers Care Warehouse Shipping Clerk Name Role Phone Katlyn Dominguez MD Primary Care Provider [phone] Encounter Details Date Type Department Care Team ([facility] st Contact Info) Description 10/24/2024 Orders Only [facility] MEDICINE [address] [place], [place] [phone] Katlyn Dominguez MD [address] [place], [place] [phone] Social History Tobacco Use Types Packs/Day Years [...] documented as of this encounter Care Teams Warehouse Shipping Clerk Relationship Specialty Start Date End Date Katlyn Dominguez MD [address] [place] [address] PCP - General Family Medicine 12/14/20 documented as of this encounter
[2025-01-12] VITALS (30 sets, daily range): BP systolic 105–132; BP diastolic 73–94; PULSE 56–89; RESP 12–20; TEMP 36.2–36.8; O2SAT 95–100; BMI 24.2; BMI 25.3
--- NOTE | ~2025-01-12 | XR_ITS ---
EXAMINATION: XR CHEST 1 VIEW HISTORY: f/u left chest tube removal COMPARISON: There are no prior studies for comparison. FINDINGS: A single AP portable view of the chest performed at 10:19 AM is submitted. The left chest tube has been removed. There is subsegmental atelectasis at the right lung base. The lungs are otherwise clear. There is no pneumothorax. There is no pleural effusion, pneumothorax, or pulmonary vascular congestion. The heart is normal in size. The bones are intact. XR/XR chest 1V IMPRESSION: Interval removal of the left chest tube. No pneumothorax. Electronically signed by: Pan Mckeon MD 01/14/2025 10:59 AM EDT
--- NOTE | ~2025-01-12 | XR_ITS ---
EXAMINATION: XR CHEST 1 VIEW HISTORY: f/u left pneumothorax COMPARISON: Comparison is made with the prior examination dated 01/13/2025. FINDINGS: A single AP portable view of the chest performed at 6:48 AM is submitted. A left-sided chest tube is unchanged in position. There is subsegmental atelectasis at both lung bases. There is no pleural effusion, pneumothorax, or pulmonary vascular congestion. The heart is normal in size. The bones are intact. XR/XR chest 1V IMPRESSION: Left chest tube in place. No pneumothorax. Electronically signed by: Pan Mckeon MD 01/14/2025 07:16 AM EDT
--- NOTE | ~2025-01-12 | CT_ITS ---
PROCEDURE: CT GUIDED BIOPSY, LUNG CLINICAL INFORMATION: Solitary pulmonary nodule left lower lobe COMPARISON: None available. TECHNIQUE: Following explaining CT fluoroscopy-guided left lower lobe pulmonary nodule biopsy procedure, benefits in risk including pneumothorax and surgical chest tube, a written consent was obtained. Patient was initially placed in left lateral to greatest view followed by] view and subsequently in a prone view the best approach. Coronary CTA markers were placed along the posterior left chest on prone position. An optimal lead marker was selected and marked and the skin. The marked site was cleaned and draped in usual sterile manner. 1% lidocaine was inserted puncture site. The 20-gauge guide needle was advanced from the skin to left intercostal space. Coaxially a 20-gauge biopsy gun was advanced and it to pass biopsy was performed. After observing a small pneumothorax the examination was terminated. Repeat CT imaging was obtained. Postprocedure compressive dressing was applied. Patient targeted procedure extremely well. A chest x-ray was to be obtained 1 hour post procedure. Conscious sedation was performed for 25 minutes with Versed and fentanyl. I or nursing and physician was present and monitored the patient during the exam. This CT examination was performed using dose optimization techniques as appropriate, variously including the following: *Automated exposure control *Adjustment of mA and/or kV according to patient size (this includes techniques or standardized protocols for targeted exams where dose is matched to indication/reason for exam; i.e. extremities or head) *Use of iterative reconstruction technique. FINDINGS/ CT/CT biopsy lung LT IMPRESSION: On CT fluoroscopy there is a 7 to 8 mm nodule left lower lobe medially base posterior to the descending aorta. 2 biopsy passes were performed in prone position. Minimal sample was collected and sent to lab. Patient developed small pneumothorax on table. A chest x-ray was to obtained to assess pneumothorax. Electronically signed by: Jeremie Pace MD 01/13/2025 04:09 PM EDT
--- NOTE | ~2025-01-12 | XR_ITS ---
EXAMINATION: XR CHEST CLINICAL INFORMATION: post left lung bx COMPARISON: April 11, 2021. TECHNIQUE: Frontal view of the chest was obtained. FINDINGS: No gross pneumothorax. No gross pleural effusion. Pulmonary reticular pattern. Calcified plaque thoracic aorta. S-shaped curvature of the thoracic spine. XR/XR chest 1V IMPRESSION: No gross pneumothorax. Chronic interstitial lung disease. Please refer to the CT lung screening dated November 24, 2024. Electronically signed by: Abdi Ochoa MD 01/12/2025 12:46 PM EDT
--- NOTE | ~2025-01-12 | XR_ITS ---
EXAMINATION: XR CHEST CLINICAL INFORMATION: f/u left pneumothorax COMPARISON: January 12, 2025. TECHNIQUE: Frontal view of the chest was obtained. FINDINGS: Left-sided pigtail chest tube ends in the medial left upper hemithorax. Tiny left apical pneumothorax. Linear opacity both lower hemithoraces. Pulmonary reticular pattern. Cardiomediastinal silhouette size is unchanged with calcified plaque thoracic aorta. Degenerative changes in the acromioclavicular joints. XR/XR chest 1V IMPRESSION: Left-sided pigtail chest tube placed with small tiny residual left apical pneumothorax. Chronic interstitial lung disease and subsegmental atelectasis lung bases. Electronically signed by: Abdi Ochoa MD 01/13/2025 08:06 AM EDT
--- NOTE | ~2025-01-12 | CT_ITS ---
PROCEDURE: CT-GUIDED INSERTION, PLEURAL TUNNEL CATHETER CLINICAL INFORMATION: Status post left lung biopsy pneumothorax. COMPARISON: CT chest lung screening 11/24/2024 TECHNIQUE: Following explaining CT-guided chest tube insertion procedure, benefits in risk, a written consent was obtained. Patient was placed supine on CT fluoroscopy table and preliminary CT imaging was obtained. An optimal site was selected along the left anterolateral chest wall and marked. The marked site was cleaned and draped in usual sterile manner. 1% lidocaine was injected puncture site. There is small skin incision a 4 [place] Yueh catheter was advanced into the left anterior pneumothorax. The stylet was withdrawn and 0.035 J-wire was advanced and placed in the pleural space and Yueh catheter was withdrawn. 6 [place] APD catheter over a stiffener was advanced over guidewire and placed within the pleural space. A guidewire and the stiffener was lucent and the catheter advanced and placed in the upper hemithorax. The catheter was then connected through a single valve to hydropneumothorax water seal component which was subsequently to be connected to -15 cm of water suction. The catheter was anchored to the skin without sutures. Repeat CT imaging was obtained to confirm position of the catheter. Patient targeted procedure extremely well. This CT examination was performed using dose optimization techniques as appropriate, variously including the following: *Automated exposure control *Adjustment of mA and/or kV according to patient size (this includes techniques or standardized protocols for targeted exams where dose is matched to indication/reason for exam; i.e. extremities or head) *Use of iterative reconstruction technique FINDINGS/ CT/CT chest tube placement IMPRESSION: On preliminary CT imaging of chest there is a small to moderate-sized left pneumothorax post biopsy. Under CT fluoroscopy 6 [place] APD catheter was left in the left upper hemithorax without immediate complications. Patient was admitted to the hospital and watched overnight. . Electronically signed by: Jeremie Pace MD 01/12/2025 05:43 PM EDT
[2025-01-12 10:11] LABS: MANUAL DIFF FLAG NO
[2025-01-12 10:13] LABS: Basophils Absolute Auto 0.1 X10*3/uL (0.0-0.2); Basophils Percent Auto 0.9 % (0-2); Eosinophils Absolute Auto 0.1 X10*3/uL (0.0-0.4); Eosinophils Percent Auto 1.5 % (0-4); Hematocrit 43.5 % (42.0-52.0); Imm Gran Abs Auto 0.03 X10*3/uL (0.00-0.03); Imm Gran Pct Auto 0.4 % (0.0-0.4); Lymphocytes Absolute Auto 2.1 X10*3/uL (1.2-4.9); Lymphocytes Percent Auto 27.1 % (20-40); Mean Corpuscular HGB Conc 34.5 g/dl (31.0-36.0); Mean Corpuscular Hemoglobin 30.7 pg (27.0-33.0); Mean Platelet Volume 10.8 fL (9.4-12.4); Monocytes Absolute Auto 0.6 X10*3/uL (0.1-1.2); Monocytes Percent Auto 7.3 % (2-11); Neutrophils Absolute Auto 4.9 x10*3/uL (2.0-8.3); Neutrophils Percent Auto 62.8 % (45-73); Platelet Count 189 X10*3/uL (160-400); Red Blood Count 4.89 X10*6/uL (4.60-5.80); Red Cell Distribution Width 13.2 % (11.0-16.0); White Blood Count 7.8 X10*3/uL (4.8-10.8)
[2025-01-12 10:20] LABS: INTERNATIONAL NORM RATIO 0.9 (0.9-1.1)
[2025-01-12 10:23] LABS: Partial Thromboplastin Time 28.1 SEC (26.0-36.8)
[2025-01-12 10:45] LABS: Anion Gap 12 (12-20); Blood Urea Nitrogen 12 mg/dL (9-16); Carbon Dioxide 25 mmol/L (22-29); Chloride 109 mmol/L (96-108); Estimated Glomerular Filt Rate > 60; Glucose Random 91 mg/dL (60-115); Sodium 142 mmol/L (135-145)
[2025-01-12] MEDS: fentaNYL citrate/PF 100 MCG/2 ML VIAL 25 MCG IVPUSH (11:15)
[2025-01-12] MEDS: Midazolam HCl 2 MG/2 ML VIAL 0.5 MG IVPUSH ×2 (11:15→11:25)
[2025-01-12] MEDS: Acetaminophen 325 MG TABLET 650 MG PO ×2 (12:24→19:38)
[2025-01-12] MEDS: oxyCODONE HCl Immed Release 5 MG TABLET PO ×3 (12:27→19:37)
--- NOTE | 2025-01-12 14:25 | P.HPHOSP_ITS ---
History of Present Illness Date of Service: 01/12/25 Attending physician on admission: [facility] Chief Complaint: Pneumothorax s/p lung biopsy 64-year-old male with a history of left lower lobe lung nodule, COPD not on home oxygen, coronary artery disease, and nicotine dependence presented to short stay surgery for lung biopsy given the pulmonary nodule in the left lower lobe. Following biopsy, patient developed pneumothorax and pigtail chest tube was placed. Patient is currently in PACU and resting comfortably. Remains on 2 L supplemental O2 and is maintaining oximetry 96%. Vital signs intraoperatively have been stable. He is reporting mild discomfort in the left upper chest but denies any shortness of breath, cough, wheezing, or retrosternal chest pressure. Hematology studies performed this morning were unremarkable. Renal function and electrolyte levels normal except for chloride 109. Coag studies within normal limits. Lung biopsy CT and chest tube insertion CT results pending. CXR postoperatively was negative for any gross pneumothorax or effusions but does show chronic interstitial disease. While in PACU, he has received fentanyl, oxycodone, midazolam, and Tylenol. He will be admitted for further management of pneumothorax s/p lung biopsy with chest tube in place. Review of Systems 2 Review of Systems: Yes all other systems are reviewed and are negative [facility] Medical History Coronary artery calcification seen on CAT scan Pulmonary nodules History of diabetes mellitus, type II Nicotine dependence, cigarettes, uncomplicated Hypertension Surgical History History of colonoscopy History of shoulder surgery History of lumbar surgery Social History Household Members: Significant Other Housing: House Are you a primary home care attendant to a significant other at home: No Do you presently have visiting nurse or other home services: No Alcohol intake: never Patient Tobacco Use Status: Current everyday Tobacco user Tobacco use type: Cigarette Cigarettes Per Day: 6 Years Smoked: onset 9yo, 1ppd x 53yrs, 50pyh Smoked in Last 30 Days: Yes Patient Interested in Nicotine Replacement: No Patient Given Instructions on How to Stop Smoking: No Second Hand Smoke Exposure: Yes Use of substances other than those prescribed or required for medical reasons: Yes Substance Use Type: Marijuana Substance Use Frequency: Daily Currently Displaying Signs/Symptoms of Drug Intoxication Withdrawal: No Any prior treatment program specific to substance use: No Have you been hit, kicked, punched, or otherwise hurt by someone within the past year? If so, by whom?: No Do you feel safe in your current relationship?: Yes Is there a partner from a previous relationship who is making you feel unsafe now?: No Are you made to feel afraid or neglected: No Are you DNR?: No Advance Directives: No Advance Directives Information Provided: Yes Advance Directives on File: No Do you have a plan to hurt others: No Plan Recently lost weight without trying: No Eating poorly because of decreased appetite: No Nutrition Risks: No Nutritional Risk Poor oral hygiene: Yes Current occupational status: disabled Meds Allergies Allergy/AdvReac Type Severity Reaction Status Date / Time No Known Allergies Allergy Verified 01/12/25 09:18 Home Medications ?Medication ?Instructions ?Recorded ?Confirmed ?Last Taken ?Type cholecalciferol (vitamin D3) 50 50 mcg PO QAM 02/28/24 01/12/25 Unknown History mcg (2,000 unit) capsule lisinopril 20 1 tab PO QAM 02/28/24 01/12/25 01/12/25 History mg-hydrochlorothiazide 25 mg tablet Physical Exam 2 Vital Signs and Narrative: Vital Signs: Last Vital Signs Temp 97.2 F 01/12/25 13:40 Pulse 6 L 01/12/25 14:10 Resp 18 01/12/25 14:10 BP 112/82 01/12/25 14:10 Pulse Ox 98 01/12/25 14:10 O2 Del Method Nasal Cannula 01/12/25 14:10 O2 Flow Rate 2 01/12/25 14:10 BMI result Body Mass Index 24.2 Constitutional - Awake and Alert, No apparent distress Eyes - PERRLA, EOMI Cardiovascular - S1S2, RRR, No edema Respiratory - Normal lung expansion, Normal respiratory effort, No respiratory distress, CTA bilaterally though slightly diminished in the LLL Gastrointestinal - NT / ND; +BS; No rebound or guarding Extremities - no calf tenderness bilaterally, no swelling Skin - Warm/Dry Neurological - Alert & oriented x3 Psychological - Appropriate affect Results Labs 01/13/25 05:23 01/13/25 05:23 Labs: Laboratory Results - last 24 hr 01/12/25 09:57 MCV 89.0 MCH 30.7 MCHC 34.5 RDW 13.2 Plt Count 189 MPV 10.8 Immature Gran % (Auto) 0.4 Neut % (Auto) 62.8 Lymph % (Auto) 27.1 Crawford % (Auto) 7.3 Eos % (Auto) 1.5 Baso % (Auto) 0.9 Lymph # (Auto) 2.1 Crawford # (Auto) 0.6 Eos # (Auto) 0.1 Baso # (Auto) 0.1 Abs Immat Gran (auto) 0.03 Absolute Neuts (auto) 4.9 Absolute Nucleated RBC 0.000 Nucleated RBC % (auto) 0.0 PT 11.0 INR 0.9 APTT 28.1 Anion Gap 12 Estim Creat Clear Calc 74.0 Estimated GFR > 60 Random Glucose 91 Calcium 9.0 Imaging Radiologist's Impressions: Impressions Chest X-Ray 01/12/25 12:10 IMPRESSION: No gross pneumothorax. Chronic interstitial lung disease. Please refer to the CT lung screening dated November 24, 2024. Electronically signed by: Adbi Ochoa MD 01/12/2025 12:46 PM EDT RP Assessment and Plan (1) Pneumothorax after biopsy: Status: Acute Plan 64-year-old male with a history of left lower lobe lung nodule, COPD not on home oxygen, coronary artery disease, and nicotine dependence presented to short stay surgery for lung biopsy given the pulmonary nodule in the left lower lobe. Follow lung biopsy patient developed pneumothorax and pigtail chest tube was placed. He will be admitted for further management of pneumothorax s/p lung biopsy with chest tube in place #pneumothorax s/p lung biopsy with chest tube in place -wean from supplemental O2, no documented hypoxia -Continue chest tube. thoracic surgery consult -oxycodone for severe pain -pathology results pending #HTN -continue lisinopril-hydrochlorothiazide # COPD -no acute exacerbation, albuterol p.r.n. # HLD/CAD -continue statin. Not on aspirin or beta-mirtha DVT prophylaxis- SCPs Full code Patient requires inpatient stay at least 2 midnights for management of pneumothorax s/p lung biopsy with chest tube in place who will require expert consultation for further management and removal of chest tube once clinically appropriate Quality Stroke Does the patient have a stroke diagnosis?: No VTE Prior VTE?: No VTE Risk Level:: Medical - moderate - high VTE Device Contraindication: N/A - Device Ordered VTE Drug Contraindication: Treatment Not Indicated
--- NOTE | 2025-01-12 15:02 | HO.THORCON_ITS ---
History of Present Illness Consult details Consult date: 01/12/25 Requesting physician: Keren Cervantes Narrative: 64-year-old male with PMH of COPD, coronary artery disease, active 50+ pack-year smoker who was referred from the lung cancer screening program for left lower lobe nodule increasing in size and was having this biopsied today. Following biopsy, the patient developed left pneumothorax and left pigtail chest tube was placed. Patient is currently in PACU and resting comfortably on 2 L supplemental O2 and saturating mid-high 90s. He currently smokes 1 pack every 3 days, decreased from 2 packs per day for 50+ years. He denies shortness of breath at rest or on exertion, chest pain, palpitations. He was admitted to the hospitalist service for further treatment and management of the left pneumothorax s/p lung biopsy. He reports some very mild pain at the chest tube site. Review of Systems 2 Review of Systems: Yes all other systems are reviewed and are negative PMFSH Past Medical History Medical History Coronary artery calcification seen on CAT scan Pulmonary nodules History of diabetes mellitus, type II Nicotine dependence, cigarettes, uncomplicated Hypertension Surgical History Surgical History History of colonoscopy History of shoulder surgery History of lumbar surgery Social History Social History Are you a primary career orientation teacher to a significant other at home: No Do you presently have visiting nurse or other home services: No Alcohol intake: never Patient Tobacco Use Status: Current everyday Tobacco user Tobacco use type: Cigarette Cigarettes Per Day: 7 Years Smoked: onset 9yo, 1ppd x 53yrs, 50pyh Use of substances other than those prescribed or required for medical reasons: Yes Substance Use Type: Marijuana Substance Use Frequency: Daily Have you been hit, kicked, punched, or otherwise hurt by someone within the past year? If so, by whom?: No Are you DNR?: No Advance Directives: No Advance Directives Information Provided: Yes Recently lost weight without trying: No Current occupational status: disabled Meds Allergies Allergy/AdvReac Type Severity Reaction Status Date / Time No Known Allergies Allergy Verified 01/12/25 09:18 Active Medications: Current Medications Acetaminophen (Acetaminophen 325 Mg Tablet) 650 mg PO Q6H PRN PRN Reason: Pain, Mild 1-3,fever,headache Atorvastatin Calcium (Atorvastatin Calcium 20 Mg Tablet) 20 mg PO DAILY [facility] Calcium Carbonate (Calcium Carbonate 750 Mg Tab.Chew) 750 mg PO Q4H PRN PRN Reason: Heartburn Dextrose (Dextrose 50 % 25 Gm/50 Ml Syringe) 25 gm IVPUSH Q15M PRN; Protocol PRN Reason: per Hypoglycemia Standing Ord. Glucose (Glucose Gel 15 Gm Gel..Gram.) 15 gm PO Q15M PRN; Protocol PRN Reason: per Hypoglycemia Standing Ord. Hydrochlorothiazide (Hydrochlorothiazide 25 Mg Tablet) 25 mg PO DAILY [facility] Insulin Human Lispro (Insulin Lispro 100 Unit/Ml 3 Ml Vial) 0 unit SUBCUT QIDACHS [facility]; Protocol Lisinopril (Lisinopril 20 Mg Tablet) 20 mg PO DAILY [facility] Magnesium Hydroxide (Milk Of Magnesia 30 Ml Oral.Susp) 30 ml PO DAILY PRN PRN Reason: Constipation Melatonin (Melatonin 3 Mg Tablet) 6 mg PO BEDTIME PRN PRN Reason: Insomnia Oxycodone HCl (Oxycodone Hcl Immed Release 5 Mg Tablet) 5 mg PO Q6H PRN PRN Reason: Pain, Severe (Pain Scale 7-10) Sodium Chloride (0.9 % Sodium Chloride Flush 3 Ml Syringe) 3 ml IVFLUSH QSHIFT [facility] Vitamin D (Cholecalciferol (Vitamin D3) 25 Mcg Tablet) 50 mcg PO DAILY [facility] Home Medications ?Medication ?Instructions ?Recorded ?Confirmed ?Last Taken ?Type cholecalciferol (vitamin D3) 50 50 mcg PO QAM 02/28/24 01/12/25 Unknown History mcg (2,000 unit) capsule lisinopril 20 1 tab PO QAM 02/28/24 01/12/25 01/12/25 History mg-hydrochlorothiazide 25 mg tablet Physical Exam 2 Vital Signs: Vital Signs: Last Vital Signs Temp 97.2 F 01/12/25 13:40 Pulse 60 01/12/25 14:25 Resp 18 01/12/25 14:25 BP 120/84 01/12/25 14:25 Pulse Ox 98 01/12/25 14:25 O2 Del Method Nasal Cannula 01/12/25 14:25 O2 Flow Rate 2 01/12/25 14:25 BMI result Body Mass Index 24.2 Const: General: comfortable, no acute distress and alert O rientation/consciousness: patient oriented x3 Neck: Neck: Yes no JVD Chest: Other: left lateral chest tube in place, no air leak on exam Resp: Effort & Inspection: normal respiratory effort, able to speak in complete sentences, not labored, no respiratory distress, not tachypneic and no tracheal deviation Cardio: Rate: regular rate Skin: General skin exam: no rashes or lesions noted Neuro: General: patient oriented x3 and moves all extremities Results Labs 01/12/25 09:57 01/12/25 09:57 Labs: Abnormal lab results 01/12/25 Range/Units 09:57 Chloride 109 H (96-108) mmol/L Short CBC 01/12/25 Range/Units 09:57 WBC 7.8 (4.8-10.8) X10*3/uL Hgb 15.0 (14.0-18.0) g/dl Hct 43.5 (42.0-52.0) % Plt Count 189 (160-400) X10*3/uL BMP 01/12/25 09:57 Sodium 142 Potassium 4.0 Chloride 109 H Carbon Dioxide 25 BUN 12 Creatinine 0.95 Calcium 9.0 All other labs normal. Imaging Chest x-ray: report reviewed and image reviewed CT scan - chest: report reviewed and image reviewed Assessment and Plan (1) Pneumothorax after biopsy: Status: Acute (2) COPD (chronic obstructive pulmonary disease): Status: Acute (3) Pulmonary nodule 1 cm or greater in diameter: Status: Acute Plan 64-year-old male with PMH of COPD, coronary artery disease, active 50+ pack-year smoker referred from the lung cancer screening program for left lower lobe nodule increasing in size who underwent biopsy today and subsequently developed left pneumothorax. Left pigtail chest tube was inserted. CXR post procedure does show a small residual left apical pneumothorax on my review. Cont chest tube to suction for now, f/u CXR in AM. Incentive spirometry 10x/hr. Patient comfortable with plan. Procedures Date of Service Date of Service: 01/12/25
--- NOTE | 2025-01-12 15:10 | PHA.MEDREC ---
Pharmacy Consult ? Medication Reconciliation Pharmacy has reviewed the medication reconciliation completed by nursing. Nursing confirmed pt has been off of cholesterol medications for over a year now. Atorvastatin was removed.
[2025-01-12 17:40] LABS: Glucose, Whole Blood 127 mg/dL (60-115)
[2025-01-12] MEDS: 0.9 % Sodium Chloride Flush 3 ML SYRINGE IVFLUSH ×2 (17:40→19:39)
[2025-01-12] MEDS: Cholecalciferol (Vitamin D3) 25 MCG TABLET 50 MCG PO (17:42)
[2025-01-12] MEDS: Atorvastatin Calcium 20 MG TABLET PO (17:42)
[2025-01-12 19:22] LABS: Glucose, Whole Blood 125 mg/dL (60-115)
--- NOTE | 2025-01-12 19:53 | MHC.PIE ---
p; pt c/o pain 05/07 to lt chest. note; pt has chest tube for pneumothorax post lung biopsy. note; prn oxy 5mg q6 given at 1521 i; dr العراقي notified. give early dose e; will cont to monitor
[2025-01-13 03:43] VITALS: BP 113/72; PULSE 59; RESP 17; TEMP 36.6; O2SAT 94
[2025-01-13 06:26] LABS: MANUAL DIFF FLAG NO
[2025-01-13 06:31] LABS: Basophils Percent Auto 0.4 % (0-2); Eosinophils Absolute Auto 0.2 X10*3/uL (0.0-0.4); Hematocrit 44.8 % (42.0-52.0); Hemoglobin 14.9 g/dl (14.0-18.0); Imm Gran Abs Auto 0.04 X10*3/uL (0.00-0.03); Imm Gran Pct Auto 0.5 % (0.0-0.4); Lymphocytes Absolute Auto 1.9 X10*3/uL (1.2-4.9); Lymphocytes Percent Auto 24.2 % (20-40); Mean Corpuscular HGB Conc 33.3 g/dl (31.0-36.0); Mean Corpuscular Hemoglobin 30.3 pg (27.0-33.0); Mean Corpuscular Volume 91.2 fL (80.0-98.0); Mean Platelet Volume 11.2 fL (9.4-12.4); Monocytes Absolute Auto 0.6 X10*3/uL (0.1-1.2); Monocytes Percent Auto 7.6 % (2-11); Neutrophils Absolute Auto 5.2 x10*3/uL (2.0-8.3); Neutrophils Percent Auto 65.3 % (45-73); Platelet Count 173 X10*3/uL (160-400); Red Blood Count 4.91 X10*6/uL (4.60-5.80); Red Cell Distribution Width 13.3 % (11.0-16.0)
[2025-01-13 06:44] LABS: Anion Gap 12 (12-20); Blood Urea Nitrogen 18 mg/dL (9-16); Calcium 9.4 mg/dL (8.4-10.2); Carbon Dioxide 29 mmol/L (22-29); Chloride 105 mmol/L (96-108); Creatinine Clr Calc Pharmacy 65.7; Estimated Glomerular Filt Rate > 60; Glucose Random 89 mg/dL (60-115); Potassium 4.6 mmol/L (3.3-5.1); Sodium 141 mmol/L (135-145)
[2025-01-13] MEDS: oxyCODONE HCl Immed Release 5 MG TABLET PO (07:33)
[2025-01-13 07:34] VITALS: BP 112/76
[2025-01-13] MEDS: lisinopriL 20 MG TABLET PO (07:34)
[2025-01-13] MEDS: Atorvastatin Calcium 20 MG TABLET PO (07:34)
[2025-01-13] MEDS: Cholecalciferol (Vitamin D3) 25 MCG TABLET 50 MCG PO (07:34)
[2025-01-13] MEDS: hydroCHLOROthiazide 25 MG TABLET PO (07:34)
[2025-01-13] MEDS: 0.9 % Sodium Chloride Flush 3 ML SYRINGE IVFLUSH ×3 (07:35→19:19)
[2025-01-13 07:37] LABS: Glucose, Whole Blood 106 mg/dL (60-115)
--- NOTE | 2025-01-13 07:43 | PC.NURSE ---
Chest tube off suction to H20 seal this am by Surgical provider.
[2025-01-13 07:50] VITALS: BP 112/76; PULSE 62; RESP 18; TEMP 36.5; O2SAT 96
--- NOTE | 2025-01-13 08:20 | PM.PNTS ---
Subjective Subjective Date of Service: 01/13/25 Interval history: Feels well. Hungry. Denies shortness of breath. Using incentive spirometer without difficulty. Physical Exam Vital Signs: Vital Signs: Last Vital Signs Temp 97.7 F 01/13/25 07:50 Pulse 62 01/13/25 07:50 Resp 18 01/13/25 07:50 BP 112/76 01/13/25 07:50 Pulse Ox 96 01/13/25 07:50 O2 Del Method Room Air 01/13/25 07:50 O2 Flow Rate 2 01/12/25 15:10 BMI result Body Mass Index 25.3 Const: General: comfortable, no acute distress and alert Orientation/consciousness: patient oriented x3 Chest: Other: left anterolateral chest with chest tube in place no air leak on exam Resp: Effort & Inspection: normal respiratory effort Skin: General skin exam: no rashes or lesions noted Neuro: General: patient oriented x3 and moves all extremities Procedures Date of Service Date of Service: 01/13/25 Progress Note: A&P Assessment and plan (1) Pneumothorax after biopsy: Status: Acute (2) COPD (chronic obstructive pulmonary disease): Status: Acute (3) Pulmonary nodule 1 cm or greater in diameter: Status: Acute Plan Remains stable from respiratory standpoint. CXR this AM shows very small residual pneumothorax. No evidence of air leak on exam. Will place to water seal. Repeat CXR in am. If remains stable, will remove chest tube tomorrow morning. Patient comfortable with plan. Encouraged OOB/ambulation and IS use. Time Spent With Patient Time: Total time managing care of this patient today ____ minutes. Quality Stroke Does the patient have a stroke diagnosis?: No VTE Prior VTE?: No VTE Risk Level:: Medical - moderate - high VTE Device Contraindication: N/A - Device Ordered VTE Drug Contraindication: Treatment Not Indicated
--- NOTE | 2025-01-13 09:54 | HO.PM.IMPN ---
Subjective Subjective Date of Service: 01/13/25 Interval History: f/u PTX after Bx no sob cxr shows residual small apical PTX Physical Exam Vital Signs: Vital Signs: Last Vital Signs Temp 97.7 F 01/13/25 07:50 Pulse 62 01/13/25 07:50 Resp 18 01/13/25 07:50 BP 112/76 01/13/25 07:50 Pulse Ox 96 01/13/25 07:50 O2 Del Method Room Air 01/13/25 07:50 O2 Flow Rate 2 01/12/25 15:10 BMI result Body Mass Index 25.3 Const: Other: General: AO X 3, no acute distress Resp: CTA bilateral, left sided pigtail cath CVS: S1,S2,RRR GI: +BS, NT, no distention Skin: No rash Neuro: motor grossly intact Psych: appropriate affect Objective Data Active Medications Acetaminophen (Acetaminophen 325 Mg Tablet) 650 mg PO Q6H PRN PRN Reason: Pain, Mild 1-3,fever,headache Last Admin: 01/12/25 19:38 Dose: 650 mg Documented By: AMANDA Atorvastatin Calcium (Atorvastatin Calcium 20 Mg Tablet) 20 mg PO DAILY [facility] Last Admin: 01/13/25 07:34 Dose: 20 mg Documented By: NEVIN Calcium Carbonate (Calcium Carbonate 750 Mg Tab.Chew) 750 mg PO Q4H PRN PRN Reason: Heartburn Dextrose (Dextrose 50 % 25 Gm/50 Ml Syringe) 25 gm IVPUSH Q15M PRN; Protocol PRN Reason: per Hypoglycemia Standing Ord. Glucose (Glucose Gel 15 Gm Gel..Gram.) 15 gm PO Q15M PRN; Protocol PRN Reason: per Hypoglycemia Standing Ord. Hydrochlorothiazide (Hydrochlorothiazide 25 Mg Tablet) 25 mg PO DAILY [facility] Last Admin: 01/13/25 07:34 Dose: 25 mg Documented By: NEVIN Insulin Human Lispro (Insulin Lispro 100 Unit/Ml 3 Ml Vial) 0 unit SUBCUT QIDACHS [facility]; Protocol Last Admin: 01/13/25 07:38 Dose: Not Given Documented By: NEVIN Non-Admin Reason: No Insulin Coverage Lisinopril (Lisinopril 20 Mg Tablet) 20 mg PO DAILY [facility] Last Admin: 01/13/25 07:34 Dose: 20 mg Documented By: NEVIN Magnesium Hydroxide (Milk Of Magnesia 30 Ml Oral.Susp) 30 ml PO DAILY PRN PRN Reason: Constipation Melatonin (Melatonin 3 Mg Tablet) 6 mg PO BEDTIME PRN PRN Reason: Insomnia Oxycodone HCl (Oxycodone Hcl Immed Release 5 Mg Tablet) 5 mg PO Q6H PRN PRN Reason: Pain, Severe (Pain Scale 7-10) Last Admin: 01/13/25 07:33 Dose: 5 mg Documented By: NEVIN Sodium Chloride (0.9 % Sodium Chloride Flush 3 Ml Syringe) 3 ml IVFLUSH QSHIFT [facility] Last Admin: 01/13/25 07:35 Dose: 3 ml Documented By: NEVIN Vitamin D (Cholecalciferol (Vitamin D3) 25 Mcg Tablet) 50 mcg PO DAILY [facility] Last Admin: 01/13/25 07:34 Dose: 50 mcg Documented By: NEVIN Labs 01/13/25 05:23 01/13/25 05:23 Labs: Laboratory Results - last 24 hr 01/12/25 01/12/25 01/12/25 09:57 17:37 19:17 MCV 89.0 MCH 30.7 MCHC 34.5 RDW 13.2 Plt Count 189 MPV 10.8 Immature Gran % (Auto) 0.4 Neut % (Auto) 62.8 Lymph % (Auto) 27.1 Bryan % (Auto) 7.3 Eos % (Auto) 1.5 Baso % (Auto) 0.9 Lymph # (Auto) 2.1 Bryan # (Auto) 0.6 Eos # (Auto) 0.1 Baso # (Auto) 0.1 Abs Immat Gran (auto) 0.03 Absolute Neuts (auto) 4.9 Absolute Nucleated RBC 0.000 Nucleated RBC % (auto) 0.0 PT 11.0 INR 0.9 APTT 28.1 Anion Gap 12 Estim Creat Clear Calc 74.0 Estimated GFR > 60 POC Glucose 127 H 125 H Random Glucose 91 Calcium 9.0 01/13/25 01/13/25 05:23 07:31 MCV 91.2 MCH 30.3 MCHC 33.3 RDW 13.3 Plt Count 173 MPV 11.2 Immature Gran % (Auto) 0.5 H Neut % (Auto) 65.3 Lymph % (Auto) 24.2 Bryan % (Auto) 7.6 Eos % (Auto) 2.0 Baso % (Auto) 0.4 Lymph # (Auto) 1.9 Bryan # (Auto) 0.6 Eos # (Auto) 0.2 Baso # (Auto) 0.0 Abs Immat Gran (auto) 0.04 H Absolute Neuts (auto) 5.2 Absolute Nucleated RBC 0.000 Nucleated RBC % (auto) 0.0 PT INR APTT Anion Gap 12 Estim Creat Clear Calc 65.7 Estimated GFR > 60 POC Glucose 106 Random Glucose 89 Calcium 9.4 Assessment and Plan (1) Pulmonary nodules: Status: Acute (2) Pneumothorax after biopsy: Status: Acute Plan 64-year-old male with a history of left lower lobe lung nodule, COPD not on home oxygen, coronary artery disease, and nicotine dependence presented to short stay surgery for lung biopsy given the pulmonary nodule in the left lower lobe. Follow lung biopsy patient developed pneumothorax and pigtail chest tube was placed. He will be admitted for further management of pneumothorax s/p lung biopsy with chest tube in place pneumothorax s/p lung biopsy with chest tube in place, no hypoxia. Has tiny residual PTx, On water seal and, CXR in am and possible removal HTN -continue lisinopril-hydrochlorothiazide COPD -no acute exacerbation, albuterol p.r.n. HLD/CAD -continue statin. Not on aspirin or beta-mirtha DVT prophylaxis- SCPs Full code Patient requires inpatient stay at least 2 midnights for management of pneumothorax s/p lung biopsy with chest tube in place who will require expert consultation for further management and removal of chest tube once clinically appropriate Quality Stroke Does the patient have a stroke diagnosis?: No VTE Prior VTE?: No VTE Risk Level:: Medical - moderate - high VTE Device Contraindication: N/A - Device Ordered VTE Drug Contraindication: Treatment Not Indicated
[2025-01-13 11:30] LABS: Glucose, Whole Blood 105 mg/dL (60-115)
--- NOTE | 2025-01-13 12:26 | MHC.CM.PN ---
IMM DELIVERED. PATIENT LIVES AT HOME W/ . INDEPENDENT W/ CARE. AMBULATES W/ CANE PRN. PCP @ BARBARA KOCH MD @ [facility] NO HCP. CM PROVIDED EDUCATION AND OFFERED ASSISTANCE. PATIENT DECLINED. DP: HOME W/ FAMILY. IF SN IS REQUIRED PATIENT PREFERS [facility]. REFERRAL PLACED VIA [facility]. FAMILY TO TRANSPORT. CM WILL CONTINUE TO FOLLOW.
[2025-01-13 15:18] VITALS: BP 120/77; PULSE 64; RESP 20; TEMP 36.2; O2SAT 96
[2025-01-13] MEDS: Acetaminophen 325 MG TABLET 650 MG PO (19:19)
[2025-01-13] MEDS: Melatonin 3 MG TABLET 6 MG PO (19:19)
[2025-01-13 19:27] VITALS: BP 124/79; PULSE 59; RESP 18; TEMP 36.9; O2SAT 94
[2025-01-14 04:00] VITALS: BP 120/89; PULSE 74; RESP 20; TEMP 37; O2SAT 98
[2025-01-14 07:43] VITALS: BP 124/85; PULSE 68; RESP 16; TEMP 36.2; O2SAT 95
--- NOTE | 2025-01-14 07:50 | P.DS_ITS ---
DS: Providers Provider Date of Service: 01/14/25 Date of admission: 01/12/25 14:35 Date of discharge: 01/14/25 Primary care physician: Katlyn Dominguez MD Consults: 01/12/25 14:25 Consult to Thoracic Surgery Routine Consulting Provider: Joel Kirk Reason for consultation: Pneumothorax s/p lung biopsy, chest tube in place DS: Diagnosis Discharge Diagnosis (1) Pulmonary nodules: Status: Acute (2) Pneumothorax after biopsy: Status: Resolved DS: Summary Hospital Course Hospital Course: admission hpi Chief Complaint: Pneumothorax s/p lung biopsy 64-year-old male with a history of left lower lobe lung nodule, COPD not on home oxygen, coronary artery disease, and nicotine dependence presented to short stay surgery for lung biopsy given the pulmonary nodule in the left lower lobe. Following biopsy, patient developed pneumothorax and pigtail chest tube was placed. Patient is currently in PACU and resting comfortably. Remains on 2 L supplemental O2 and is maintaining oximetry 96%. Vital signs intraoperatively have been stable. He is reporting mild discomfort in the left upper chest but denies any shortness of breath, cough, wheezing, or retrosternal chest pressure. Hematology studies performed this morning were unremarkable. Renal function and electrolyte levels normal except for chloride 109. Coag studies within normal limits. Lung biopsy CT and chest tube insertion CT results pending. CXR postoperatively was negative for any gross pneumothorax or effusions but does show chronic interstitial disease. While in PACU, he has received fentanyl, oxycodone, midazolam, and Tylenol. He will be admitted for further management of pneumothorax s/p lung biopsy with chest tube in place. hospital course Patient was admitted and had a pigtail catheter inserted for pneumothorax, which resolved quickly on serial chest x-rays. Thoracic surgery followed her and removed the tube on the second day of hospitalization. Post-tube removal x-ray showed no pneumothorax. Ordering provider to review biopsy results Time Attestation Discharge Coordination Time (in mins): 35 Quality: Safe Use of Opioids Does Pt have an Active Cancer Diagnosis on the Problem List?: No Quality: Stroke Does the patient have a stroke diagnosis?: No Physical Exam Vital Signs: Vital Signs: Last Vital Signs Temp 97.1 F 01/14/25 07:43 Pulse 68 01/14/25 07:43 Resp 16 01/14/25 07:43 BP 124/85 01/14/25 07:43 Pulse Ox 95 01/14/25 07:43 O2 Del Method Room Air 01/14/25 07:43 O2 Flow Rate 2 01/12/25 15:10 BMI result Body Mass Index 25.3 Const: Other: General: AO X 3, no acute distress Resp: CTA bilateral CVS: S1,S2,RRR GI: +BS, NT, no distention Skin: No rash Neuro: motor grossly intact Psych: appropriate affect DS: Data Data Completed and Pending Completed studies during hospitalization [Text1]: Pending at discharge 01/12/25 11:03 Cytology [PTH] Routine Labs on day of discharge: Laboratory Results - last 24 hr 01/13/25 11:25 POC Glucose 105 Discharge Plan Discharge Anticipated Discharge Date/Time: 01/14/25 07:53 Patient Disposition: Home, Self-Care Discharge Diagnosis: Pneumothorax after biopsy Referrals: Katlyn Dominguez MD [Primary Care Provider] - 1 Week Joel Kirk MD [Physician] - 1 Week Discharge Medications: Continued diclofenac sodium 1 % gel 2 g topical QID Qty: 100 0RF Rx Instructions: apply to left knee ibuprofen 800 mg tablet 800 mg PO Q8H PRN (Reason: pain) Qty: 20 0RF lisinopril-hydrochlorothiazide 20-25 mg tablet 1 tab PO QAM cholecalciferol (vitamin D3) 50 mcg (2,000 unit) capsule 50 mcg PO QAM No Action cyclobenzaprine 10 mg tablet 10 mg PO TID PRN (Reason: muscle spasm) Qty: 20 0RF lidocaine 5 % adhesive patch,medicated 1 patch topical DAILY Qty: 30 0RF Rx Instructions: leave on most painful area for up to 12 hrs Discharge Orders: Discharge Order (Routine); Ordered 01/14/25 Ordered By: Cornelius Morales Diet: Advance to usual diet Activity on Discharge: No heavy lifting Stand Alone Forms: Patient Portal Discharge page Print Language: [place] Irish Activity Restrictions/Additional Instructions: Chest tube dressing changes every other day with Xeroform and 4x4, tape. Care Plan Goals: recovery from pneumothorax after biopsy Health Concerns: pulmonary nodule Pneumothorax now resolved. Plan of Treatment: Follow up with your Doctor in a week, Follow up with Dr. Kirk thoracic surgeon in 1 week Assessment: see above Discharge Date/Time: 01/14/25 13:51
[2025-01-14] MEDS: Atorvastatin Calcium 20 MG TABLET PO (08:17)
[2025-01-14] MEDS: lisinopriL 20 MG TABLET PO (08:17)
[2025-01-14] MEDS: Cholecalciferol (Vitamin D3) 25 MCG TABLET 50 MCG PO (08:17)
[2025-01-14] MEDS: hydroCHLOROthiazide 25 MG TABLET PO (08:17)
[2025-01-14] MEDS: 0.9 % Sodium Chloride Flush 3 ML SYRINGE IVFLUSH (08:18)
--- NOTE | 2025-01-14 08:19 | PM.PNTS ---
Subjective Subjective Date of Service: 01/14/25 Interval history: Uneventful evening. No respiratory issues or complaints. Chest tube minimal output with no air leak. A.m. chest x-ray within normal limit Physical Exam Vital Signs: Vital Signs: Last Vital Signs Temp 97.1 F 01/14/25 07:43 Pulse 68 01/14/25 07:43 Resp 16 01/14/25 07:43 BP 124/85 01/14/25 07:43 Pulse Ox 95 01/14/25 07:43 O2 Del Method Room Air 01/14/25 07:43 O2 Flow Rate 2 01/12/25 15:10 BMI result Body Mass Index 25.3 Chest: Other: Chest breath sounds bilaterally. Dressing clean dry and intact Procedures Date of Service Date of Service: 01/14/25 Progress Note: A&P Assessment and plan (1) Pneumothorax after biopsy: Status: Acute Plan Current plan is to remove chest tube and get postprocedure film. If all is well patient can be discharged home with follow-up with me next week. Time Spent With Patient Time: Total time managing care of this patient today ____ minutes. Quality Stroke Does the patient have a stroke diagnosis?: No VTE Prior VTE?: No VTE Risk Level:: Medical - moderate - high VTE Device Contraindication: N/A - Device Ordered VTE Drug Contraindication: Treatment Not Indicated
[2025-01-14] MEDS: Acetaminophen 325 MG TABLET 650 MG PO (08:24)
[2025-01-14] MEDS: Morphine Sulfate 2 MG/ML CARTRIDGE IVPUSH (10:13)
--- NOTE | 2025-01-14 11:11 | MHC.CM.PN ---
Addendum entered by Camelia Montano RN 01/14/25 13:08: Patient medically cleared for dc home self care via private transport. Original Note: Per MD rounds patient not medically cleared for dc. CM will continue to follow.
== END 2025-01-14 13:51 | disposition home or self-care (01) | DRG 201 ==
LOC: HO.SSSA 14:37 → HO.S3 15:23
PROVIDERS: Radiology Diagnostic Radiology; Admitting Provider Physician Assistant; PCP General Practice; Visit Provider Internal Medicine
PROC: 0BBJ3ZX Excision of Left Lower Lung Lobe, Percutaneous Approach, Diagnostic (ICD-10-PCS; principal; 2025-01-12 10:30)
DX: J95.811 Postprocedural pneumothorax (principal); I25.10 Atherosclerotic heart disease of native coronary artery without angina pectoris; E11.9 Type 2 diabetes mellitus without complications; I10 Essential (primary) hypertension; R91.1 Solitary pulmonary nodule; J44.9 Chronic obstructive pulmonary disease, unspecified; E78.5 Hyperlipidemia, unspecified; F17.210 Nicotine dependence, cigarettes, uncomplicated; Z71.6 Tobacco abuse counseling; Z79.899 Other long term (current) drug therapy
CPT/HCPCS: 32408; 32551; 36415; 71045; 80048; 82947; 85025; 85610; 85730; 88305; 99152; 99153; A7041; C1729; J2003; J2250; J2270; J3010

== ENCOUNTER → 2025-01-12 14:35 | Outpatient (BNV) | payer MEDICARE, SELFPAY | PROVIDERS: Admitting Provider Physician Assistant; PCP General Practice; Visit Provider Physician Assistant | DX: R91.8 Other nonspecific abnormal finding of lung field (principal); J95.811 Postprocedural pneumothorax | CPT/HCPCS: 99239 ==

== ENCOUNTER → 2025-01-12 14:35 | Outpatient (BNV) | payer MEDICARE, SELFPAY | PROVIDERS: Admitting Provider Physician Assistant; PCP General Practice; Visit Provider Physician Assistant Surgical | DX: J95.811 Postprocedural pneumothorax (principal) | CPT/HCPCS: 99222; 99232 ==

== ENCOUNTER 2025-01-15 15:04 | Emergency (ER) | payer MEDICARE, OTHER, SELFPAY ==
--- NOTE | ~2025-01-15 | XR_ITS ---
CLINICAL HISTORY: R sided chest pain 2 view chest x-ray Comparison: CR/KS/SR - XR CHEST 1V - 01/14/25 10:19 EDT Findings: Mild linear opacities within the right lower lung. No consolidation or pleural effusion. No pneumothorax. Normal heart size. Tortuous aorta. No acute fracture. IMPRESSION: Mild linear atelectasis or scarring within the right lower lung. This document has been electronically signed by: Belem Trujillo MD on 01/15/2025 17:13:36
--- NOTE | ~2025-01-15 | XR_ITS ---
CLINICAL HISTORY: pain 3 view right ribs Comparison: CR - XR CHEST 2V - 01/15/25 16:20 EDT Findings: Bones intact. No dislocations. The visualized lungs are normal. IMPRESSION: 1. No acute findings This document has been electronically signed by: Belem Trujillo MD on 01/15/2025 17:13:19
[2025-01-15 15:50] VITALS: BP 108/82; PULSE 83; RESP 16; TEMP 36.6; O2SAT 98; BMI 25.9
--- NOTE | 2025-01-15 15:50 | ED_ITS ---
HPI - Abdominal Pain General Chief Complaint: General Medical Stated Complaint: right side abd pain Time Seen by Provider: 01/15/25 20:52 Source: patient and old records reviewed Mode of arrival: ambulatory Limitations: no limitations History of Present Illness ED Provider: RAQUEL BACON narrative: 64 yo male with PMH of PTX after lung biopsy on L just had chest tube removed yesterday states he has been fine since then but before biopsy he has had R sided back/MSK pain with movements for 2 weeks - no cough, fevers, no b/b incontinence no saddle anesthesia. He is not on thinners. He states it only hurts with certain movements and after being in the hospital it got much worse MD elicited complaint: other (thoracic back pain) Pertinent past history: other Onset (ago): week(s) (2) Pain Consistency: intermittent Location: other (R thoracic back pain) Severity: moderate Quality: stabbing and aching Radiation: none Migration to: no migration Exacerbating factors: movement (hurts when he twists certain ways) Relieving factors: rest Context: history of similar episodes Associated symptoms: denies other symptoms Related Data Home Medications ?Medication ?Instructions ?Recorded ?Confirmed cholecalciferol (vitamin D3) 50 50 mcg PO QAM 02/28/24 01/12/25 mcg (2,000 unit) capsule lisinopril 20 1 tab PO QAM 02/28/24 01/12/25 mg-hydrochlorothiazide 25 mg tablet Previous Rx's ?Medication ?Instructions ?Recorded diclofenac sodium 1 % topical gel 2 g topical QID #100 grams 02/09/24 ibuprofen 800 mg tablet 800 mg PO Q8H PRN pain #20 tabs 02/12/24 cyclobenzaprine 10 mg tablet 10 mg PO TID PRN muscle spasm #20 01/15/25 tabs lidocaine 5 % topical patch 1 patch topical DAILY #30 ea 01/15/25 Allergies Allergy/AdvReac Type Severity Reaction Status Date / Time No Known Allergies Allergy Verified 01/15/25 15:51 Review of Systems Review of Systems Constitutional : No Weight loss, No Fever, No Chills, ENT/Mouth : No Hearing loss, No Ear Pain, No Nasal Congestion, No Sinus Pain, No Hoarseness, No sore throat, No Rhinorrhea, No Swallowing Difficulty Cardiovascular : No Chest Pain, No SOB Respiratory : No Cough, No Dyspnea Gastrointestinal : No Nausea, No Vomiting, No Diarrhea, No abdominal Pain, No Hematochezia, No Melena Genitourinary : No Dysuria, No Urinary Frequency, No Hematuria, No Urinary Incontinence, Musculoskeletal : positive back pain Skin : No Skin Lesions, No rash All other systems reviewed and are negative [facility] Past Medical History Attestation statement: The following information was validated with the patient. Source: old records reviewed Medical History Coronary artery calcification seen on CAT scan Pulmonary nodules History of diabetes mellitus, type II Nicotine dependence, cigarettes, uncomplicated Hypertension Surgical History History of colonoscopy History of shoulder surgery History of lumbar surgery Social History Social History Household Members: Significant Other Housing: House Are you a primary managed care manager to a significant other at home: No Do you presently have visiting nurse or other home services: No Alcohol intake: never Patient Tobacco Use Status: Current everyday Tobacco user Tobacco use type: Cigarette Cigarettes Per Day: 6 Years Smoked: onset 9yo, 1ppd x 53yrs, 50pyh Second Hand Smoke Exposure: Yes Substance Use Type: Marijuana Advance Directives: No Advance Directives Information Provided: Yes Do you have a plan to hurt others: No Plan service: No Current occupational status: disabled Physical Exam ED Vital Signs: Vital Signs - 24 hr 01/15/25 15:50 01/15/25 19:54 01/15/25 21:41 Temperature 97.9 F 97.6 F 98.2 F Pulse Rate 83 59 77 Respiratory Rate 16 16 16 Blood Pressure 108/82 127/91 H 119/85 Pulse Oximetry 98 97 99 Oxygen Delivery Method Room Air Room Air Room Air 01/15/25 21:47 Temperature 98.2 F Pulse Rate 77 Respiratory Rate 16 Blood Pressure 119/85 Pulse Oximetry 99 Oxygen Delivery Method Room Air BMI result Body Mass Index 25.9 Appearance: Alert. Oriented X3. No acute distress. Eyes: Pupils equal, round and reactive to light. ENT: Pharynx normal. Neck: Normal inspection. Neck supple. CVS: Normal heart rate and rhythm. Pulses normal. Chest: chest tube sites c/d/i Back: R thoracic mid back pain with twisting and moving. He is walking around talking on phone, not toxic. He states he wants his dressing changed and he also states this has been going on for 2 weeks. distal NV intact, no rash seen Respiratory: No respiratory distress. Breath sounds normal. Abdomen: Soft and nontender. Skin: Skin warm and dry. Normal skin color. Normal skin turgor. Extremities: No lower extremity edema. No calf ttp Neuro: Oriented X 3. No motor deficit. No sensory deficit. CN2-12 intact Course Course Course Narrative: This is an RME: Additional HPI, ROS, PE not included below will be deferred to primary provider. RME assessment and note performed by: Ana Schilling PA-C 64-year-old male with a history of left lower lobe lung nodule, COPD not on home oxygen, coronary artery disease, and nicotine dependence presented to short stay surgery for lung biopsy on 01/12 on pulmonary nodule in the left lower lobe. Following biopsy, patient developed pneumothorax and pigtail chest tube was placed. He was d/c yesterday. He now has right sided rib pain, no injury. No SOB. Plan: Xray, labs, further ER eval needed. Medical Decision Making Medical Decision Making [facility] Narrative: 64 yo male with PMH of PTX after lung biopsy on L just had chest tube removed yesterday now here with 2 weeks thoracic back pain on opposite side of the procedure that is worse with certain movements he is distal NV intact, he has no rash, no mass seen, he has no CP/SOB to suggest VTE - this has been present for weeks and bothers him when he gets up and twists the thorax. This seems MSK in nature will obtain xrays and basic labs. Differential Diagnosis Differential Diagnoses: The differential diagnosis associated with the presentation includes thoracic strain, mass, MSK pain Admission/Observation Consideration of admission/observation: Escalation of care including admission/observation considered asking to go home, not toxic appearing Lab Data [facility] Lab Attestation statement: I reviewed the patient's lab results. 01/15/25 16:46 01/15/25 16:46 Labs: Lab Results 01/15/25 Range/Units 16:46 WBC 9.3 (4.8-10.8) X10*3/uL RBC 5.25 (4.60-5.80) X10*6/uL Hgb 15.6 (14.0-18.0) g/dl Hct 46.7 (42.0-52.0) % MCV 89.0 (80.0-98.0) fL MCH 29.7 (27.0-33.0) pg MCHC 33.4 (31.0-36.0) g/dl RDW 13.1 (11.0-16.0) % Plt Count 193 (160-400) X10*3/uL MPV 10.8 (9.4-12.4) fL Immature Gran % (Auto) 0.4 (0.0-0.4) % Neut % (Auto) 59.8 (45-73) % Lymph % (Auto) 28.4 (20-40) % Chambers % (Auto) 9.0 (2-11) % Eos % (Auto) 1.8 (0-4) % Baso % (Auto) 0.6 (0-2) % Lymph # (Auto) 2.6 (1.2-4.9) X10*3/uL Chambers # (Auto) 0.8 (0.1-1.2) X10*3/uL Eos # (Auto) 0.2 (0.0-0.4) X10*3/uL Baso # (Auto) 0.1 (0.0-0.2) X10*3/uL Abs Immat Gran (auto) 0.04 H (0.00-0.03) X10*3/uL Absolute Neuts (auto) 5.5 (2.0-8.3) x10*3/uL Absolute Nucleated RBC 0.000 (0.0-0.012) X10*3/uL Nucleated RBC % (auto) 0.0 (0.0-0.2) /100WBC Sodium 140 (135-145) mmol/L Potassium 4.0 (3.3-5.1) mmol/L Chloride 104 (96-108) mmol/L Carbon Dioxide 26 (22-29) mmol/L Anion Gap 14 (12-20) BUN 21 H (9-16) mg/dL Creatinine 1.16 (0.5-1.4) mg/dL Estim Creat Clear Calc 54.4 Estimated GFR > 60 Random Glucose 100 (60-115) mg/dL Calcium 9.5 (8.4-10.2) mg/dL Magnesium 2.2 (1.6-2.6) mg/dL Total Bilirubin 0.5 (0.0-1.0) mg/dL Direct Bilirubin 0.2 (0.0-0.5) mg/dL AST 24 (5-37) U/L ALT 27 (0-40) U/L Alkaline Phosphatase 70 (39-117) U/L Total Protein 7.9 (6.5-8.0) g/dL Albumin 4.4 (3.5-5.0) g/dL Lipase 28 (8-78) U/L Independent Interpretation I performed an independent interpretation of an: Plain X-Ray (normal ) Radiology Impression Discussion of test interpretation with radiology: I have reviewed the radiologist's reading. External Record Review External record reviewed: Inpatient record Prescription Management I considered prescription management with: Pain Medication and Other Medications Administered Discontinued Medications Generic Name Dose Route Start Last Admin Trade Name Freq PRN Reason Stop Dose Admin Cyclobenzaprine HCl 10 mg 01/15/25 21:15 01/15/25 21:38 Cyclobenzaprine Hcl 10 Mg Tablet PO 01/15/25 21:16 10 mg ONCE ONE Administration Lidocaine 1 patch 01/15/25 21:15 01/15/25 21:37 Lidocaine 4 % Patch Adh..Patch TRANSDERMA 01/15/25 21:16 1 patch ONCE ONE Administration Protocol Discharge Plan Discharge Clinical Impression: Pain in rib, Back pain, thoracic Patient Disposition: Home, Self-Care Instructions: Chest Pain (ED), Back Pain (ED) Additional Instructions: return for worsening pain, rash, unable to breathe, fevers or any other concerns xrays normal please follow up with your doctor Prescriptions: New cyclobenzaprine 10 mg tablet 10 mg PO TID PRN (Reason: muscle spasm) Qty: 20 0RF lidocaine 5 % adhesive patch,medicated 1 patch topical DAILY Qty: 30 0RF Rx Instructions: leave on most painful area for up to 12 hrs No Action diclofenac sodium 1 % gel 2 g topical QID Qty: 100 0RF Rx Instructions: apply to left knee ibuprofen 800 mg tablet 800 mg PO Q8H PRN (Reason: pain) Qty: 20 0RF lisinopril-hydrochlorothiazide 20-25 mg tablet 1 tab PO QAM cholecalciferol (vitamin D3) 50 mcg (2,000 unit) capsule 50 mcg PO QAM Interventions: ED Discharge Assessment Last Done: 01/15/25 21:47 Discharge Date/Time: 01/15/25 21:47 Print Language: Nigerien
[2025-01-15 16:50] LABS: MANUAL DIFF FLAG NO
[2025-01-15 16:58] LABS: Basophils Absolute Auto 0.1 X10*3/uL (0.0-0.2); Basophils Percent Auto 0.6 % (0-2); Eosinophils Absolute Auto 0.2 X10*3/uL (0.0-0.4); Eosinophils Percent Auto 1.8 % (0-4); Hematocrit 46.7 % (42.0-52.0); Hemoglobin 15.6 g/dl (14.0-18.0); Imm Gran Abs Auto 0.04 X10*3/uL (0.00-0.03); Imm Gran Pct Auto 0.4 % (0.0-0.4); Lymphocytes Absolute Auto 2.6 X10*3/uL (1.2-4.9); Lymphocytes Percent Auto 28.4 % (20-40); Mean Corpuscular HGB Conc 33.4 g/dl (31.0-36.0); Mean Corpuscular Hemoglobin 29.7 pg (27.0-33.0); Mean Platelet Volume 10.8 fL (9.4-12.4); Monocytes Absolute Auto 0.8 X10*3/uL (0.1-1.2); Neutrophils Absolute Auto 5.5 x10*3/uL (2.0-8.3); Neutrophils Percent Auto 59.8 % (45-73); Platelet Count 193 X10*3/uL (160-400); Red Blood Count 5.25 X10*6/uL (4.60-5.80); Red Cell Distribution Width 13.1 % (11.0-16.0); White Blood Count 9.3 X10*3/uL (4.8-10.8)
[2025-01-15 17:06] LABS: Alanine Aminotransferase 27 U/L (0-40); Albumin Level 4.4 g/dL (3.5-5.0); Alkaline Phosphatase 70 U/L (39-117); Anion Gap 14 (12-20); Aspartate Amino Transferase 24 U/L (5-37); Bilirubin Direct 0.2 mg/dL (0.0-0.5); Bilirubin Total 0.5 mg/dL (0.0-1.0); Blood Urea Nitrogen 21 mg/dL (9-16); Calcium 9.5 mg/dL (8.4-10.2); Carbon Dioxide 26 mmol/L (22-29); Chloride 104 mmol/L (96-108); Creatinine Clr Calc Pharmacy 54.4; Estimated Glomerular Filt Rate > 60; Glucose Random 100 mg/dL (60-115); Magnesium 2.2 mg/dL (1.6-2.6); Sodium 140 mmol/L (135-145); Total Protein 7.9 g/dL (6.5-8.0)
[2025-01-15 19:54] VITALS: BP 127/91; PULSE 59; RESP 16; TEMP 36.4; O2SAT 97
[2025-01-15 21:12] LABS: Lipase 28 U/L (8-78)
[2025-01-15] MEDS: Lidocaine 4 % Patch ADH..PATCH 1 PATCH TRANSDERMA (21:37)
[2025-01-15] MEDS: Cyclobenzaprine HCl 10 MG TABLET PO (21:38)
[2025-01-15 21:41] VITALS: BP 119/85; PULSE 77; RESP 16; TEMP 36.8; O2SAT 99
--- NOTE | 2025-01-15 21:46 | PC.NURSE ---
dressing to L. rib area changed per MD approval. nonstick and tegaderm applied. appears to be healing well, no erythema/drainage noted. pt reports R. rib area pain with movement, lidocaine patch applied and pt medicated per dec. jamie at d.c. speaking full clear sentences. pt verbalizes understanding d/c education.
[2025-01-15 21:47] VITALS: BP 119/85; PULSE 77; RESP 16; TEMP 36.8; O2SAT 99
== END 2025-01-15 21:47 | disposition home or self-care (01) ==
PROVIDERS: Physician Assistant; Physician Assistant Medical; Emergency Provider Emergency Medicine; PCP General Practice
DX: R07.81 Pleurodynia (principal); M54.6 Pain in thoracic spine; E11.9 Type 2 diabetes mellitus without complications; I10 Essential (primary) hypertension; J44.9 Chronic obstructive pulmonary disease, unspecified; F17.210 Nicotine dependence, cigarettes, uncomplicated; Z79.899 Other long term (current) drug therapy
CPT/HCPCS: 36415; 71046; 71100; 80048; 80076; 83690; 83735; 85025; 99283; 99284

== ENCOUNTER → 2025-01-15 15:53 | Outpatient (BNV) | payer MEDICARE, SELFPAY | PROVIDERS: PCP General Practice; Visit Provider Radiology Diagnostic Radiology | DX: R07.81 Pleurodynia (principal); R07.9 Chest pain, unspecified | CPT/HCPCS: 71046; 71100 ==

== ENCOUNTER 2025-01-20 11:21 | Outpatient (AMB) | payer MEDICARE, SELFPAY ==
[2025-01-20 11:24] VITALS: BP 119/79; PULSE 65; BMI 26.8
--- NOTE | 2025-01-20 11:24 | MHC.OFFVIS ---
Vital Signs 01/20/25 11:24 Height 5 ft 5 in Weight 160 lb 14.999 oz BMI 26.8 BP 119/79 Blood Pressure Location Lt brachial Position Sitting Pulse 65 Intake Visit Reasons: s/p pigtail chest tube was placed Intake Note: S/P pigtail cest tube was placed c/o left sided pain when walking Allergies No Known Allergies Allergy (Verified 01/15/25 15:51) Medication List - Last Reconciled 01/20/25 by Joel Kirk MD cholecalciferol (vitamin D3) 50 mcg PO QAM cyclobenzaprine 10 mg PO TID PRN diclofenac sodium 1% 2 grams topical QID ibuprofen 800 mg PO Q8H PRN lidocaine 5% 1 patch topical DAILY lisinopril-hydrochlorothiazide 20-25 mg 1 tab PO QAM HPI Comments Details: Patient presents status post lung biopsy with a iatrogenic pneumothorax. He has no respiratory issues or complaints. Pathology was nondiagnostic. A lengthy discussion was had with the patient regarding further studies and interventions. These range from repeating lung biopsy, PET scan, wedge resection with on-table frozen section. [facility] Medical History Coronary artery calcification seen on CAT scan Pulmonary nodules History of diabetes mellitus, type II Nicotine dependence, cigarettes, uncomplicated Hypertension Surgical History History of colonoscopy History of shoulder surgery History of lumbar surgery Social History Household Members: Significant Other Housing: House Are you a primary cna caregiver to a significant other at home: No Do you presently have visiting nurse or other home services: No Alcohol intake: never Patient Tobacco Use Status: Current everyday Tobacco user Tobacco use type: Cigarette Cigarettes Per Day: 6 Years Smoked: onset 9yo, 1ppd x 53yrs, 50pyh Second Hand Smoke Exposure: Yes Substance Use Type: Marijuana service: No Current occupational status: disabled Physical Exam Vital Signs: Last Vital Signs Pulse 65 01/20/25 11:24 BP 119/79 01/20/25 11:24 BMI result Body Mass Index 26.8 Chest Other: Chest breath sounds bilaterally. Biopsy site and chest tube sites healing well GI Other: Abdomen is soft, benign Assessment & Plan Assessment & Plan (1) Pulmonary nodules: Comment: (8x5mm LLL nodule on08/09/23 LDCT; 7x10mm LLL nodule on 11/24/24 LDCT) Code(s): R91.8 - Other nonspecific abnormal finding of lung field Category: Surgical Plan: Current plan is the patient would like to proceed with a PET scan. We will also obtain PFTs if he has not already had then. He will see me after the study and we will indirect further therapy based on the results. All questions answered. Orders: Orders PET CT fusion skull to thigh Today R91.8 - Other nonspecific abnormal finding of lung field Coding Level of Care Code Est Pt Level 4 (96284) Diagnoses Pulmonary nodules R91.8
== END 2025-01-20 12:29 | disposition home or self-care (01) ==
LOC: HO.HGS 11:22
PROVIDERS: PCP General Practice; Visit Provider Surgery
DX: R91.8 Other nonspecific abnormal finding of lung field (principal)
CPT/HCPCS: 99214

== ENCOUNTER → 2025-01-20 11:21 | Outpatient (BNVA) | payer MEDICARE, SELFPAY | PROVIDERS: PCP General Practice; Visit Provider Surgery | DX: R91.8 Other nonspecific abnormal finding of lung field (principal) | CPT/HCPCS: 99212 ==

== ENCOUNTER 2025-02-02 09:30 | Outpatient (REF) | payer MEDICARE, SELFPAY ==
--- OUTSIDE RECORDS SUMMARY | 2025-02-02 10:44 | XMS_ITS | Clinical Summary ---
Author Organization [facility] Address [address] [place] [address] Care Team Providers Care Stone Banker Name Role Phone Katlyn Dominguez MD Primary Care Provider [phone] Allergies No known active allergies Medications terbinafine [...] Plan (11/26/2023 10:38 AM EST): Referral to [facility] Annual physical exam 05/23/2023 Assessment [...] Encounters Date Type Department Care Team Description 01/15/2025 Orders Only GENERIC EXTERNAL DATA DEPARTMENT Provider, Generic External Data 01/12/2025 Orders Only GENERIC EXTERNAL DATA DEPARTMENT Provider, Generic External Data 11/24/2024 Orders Only [facility] External Provider, [facility] from Last 3 Months Immunizations Name Administration [...] 1970 Hepatitis C Screening 1976 COVID-19 Vaccine (2023-2 5 season) 2024 10/25/2021, 04/01/2021, 03/04/2021 Influenza [...] Procedure Name Priority Date/Time Associated Diagnosis Comments XR CHEST 2 VIEWS Routine 01/15/2025 5:13 PM EDT XR RIBS 2 VIEWS RIGHT Routine 01/15/2025 5:13 PM EDT LIPASE Routine 01/15/2025 4:46 PM EDT MAGNESIUM Routine 01/15/2025 4:46 PM EDT BASIC METABOLIC PANEL Routine 01/15/2025 4:46 PM EDT HEPATIC FUNCTION PANEL Routine 01/15/2025 4:46 PM EDT CBC WITH AUTO DIFFERENTIAL Routine 01/15/2025 4:46 PM EDT XR CHEST 1 VIEW Routine 01/14/2025 10:18 AM EDT XR CHEST 1 VIEW Routine 01/14/2025 6:50 AM EDT XR CHEST 1 VIEW Routine 01/13/2025 6:[address] CHEST TUBE Routine 01/12/2025 12:50 PM EDT XR CHEST 1 VIEW Routine 01/12/2025 12:[address] BIOPSY LUNG LEFT Routine 01/12/2025 1 0:50 AM EDT BASIC METABOLIC PANEL Routine 01/12/2025 9:57 AM EDT APTT Routine 01/12/2025 9:57 AM EDT PROTHROMBIN TIME-INR Routine 01/12/2025 9:57 AM EDT CBC WITH AUTO DIFFERENTIAL Routine 01/12/2025 9:57 AM EDT LDCT LUNG SCREENING Routine 11/24/2024 5 :42 PM EST LIPID PANEL, STANDARD Routine 09/18/2024 9:05 AM EST Essential hypertension from Last 3 Months or Most Recently Relevant to Health Maintenance Results * XR Ribs 2 Views Right (01/15/2025 5:13 PM EDT) Anatomical Region Laterality Modality Rib, Abdomen Right Radiographic Betty ging 01/15/2025 5:13 PM EDT Narrative 01/15/2025 5:14 PM EDT ? [facility] ?[address] ?[place] [address] ?XRay Report ? Signed ? Patient: Olivares Victoria,Clemente ?MR#: ?? [id number] ? : 1960 ?Acct:[id number] ? Age/Sex: 64 / M ?ADM Date: 03/20/25 ? Loc: HO.ED ? Attending Dr: ? Ordering Physician: Ana Schilling ?? Date of Service: 01/15/25 ?? Procedure(s): XR ribs RT 2V ?? Accession Number(s): [id number] ? cc: Katlyn Dominguez; Ana Schilling ? CLINICAL HISTORY: pain ? 3 view right ribs ? Comparison: CR - XR CHEST 2V - 01/15/25 16:20 EDT ? Findings: ?? Bones intact. No dislocations. ?? The visualized lungs are normal. ? IMPRESSION: ?? 1. No acute findings ? This document has been electronically signed by: Belem Trujillo MD on ?? 01/15/2025 17:13:19 ? Dictated By: ?Belem Trujillo MD ? Signed By: ?<Electronically signed by Belem Trujillo MD in OV> ? 01/15/25 1714 ? DD/ 12 ? TD/TT: 01/15/251712 ? Elevator Installer Apprentice: ? Procedure Note Donbritneyrosaliochelle, Image - 01/15/2025 [place] [address] XRay Report Signed Patient: Lauren Mathews#: [id number] : 9Acct:[id number] Age/Sex: 64 / MADM Date: 01/15/25 Loc: HO.ED Attending Dr: Ordering Physician: Ana cShilling Date of Service: 01/15/25 Procedure(s): XR ribs RT 2V Accession Number(s): [id number] cc: Katlyn Dominguez; Ana Schilling CLINICAL HISTORY: pain 3 view right ribs Comparison: CR - XR CHEST 2V - 01/15/25 16:20 EDT Findings: Bones intact. No dislocations. The visualized lungs are normal. IMPRESSION: 1. No acute findings This document has been electronically signed by: Belem Trujillo MD on 01/15/2025 17:13:19 Dictated By: Belem Trujillo MD Signed By: <Electronically signed by Belem Trujillo MD in OV> 01/15/251713 DD/ 12 TD/TT: 01/15/251712 Elevator Installer Apprentice: [facility] External Provider IMG XR PROCEDURES Final Result * XR Chest 2 Views (01/15/2025 5:13 PM EDT) Anatomical Region Laterality Modality Chest Radiographic Betty ging 01/15/2025 5:13 PM EDT Narrative 01/15/2025 5:15 PM EDT ? [facility] ?[address] ?[place] [address] ?XRay Report ? Signed ? Patient: Olivares Victoria,Clemente ?MR#: ?? [id number] ? : 1960 ?Acct:[id number] ? Age/Sex: 64 / M ?ADM Date: 01/15/25 ? Loc: HO.ED ? Attending Dr: ? Ordering Physician: Ana Schilling ?? Date of Service: 01/15/25 ?? Procedure(s): XR chest 2V ?? Accession Number(s): [id number] ? cc: Katlyn Dominguez; Ana Schliling ? CLINICAL HISTORY: R sided chest pain ? 2 view chest x-ray ? Comparison: CR/WI/SR - XR CHEST 1V - 01/14/25 10:19 EDT ? Findings: ?? Mild linear opacities within the right lower lung. No consolidation or ?? pleural effusion. No pneumothorax. ?? Normal heart size. Tortuous aorta. ?? No acute fracture. ? IMPRESSION: ?? Mild linear atelectasis or scarring within the right lower lung. ? This document has been electronically signed by: Belem Trujillo MD on ?? 01/15/2025 17:13:36 ? Dictated By: ?Belem Trujillo MD ? Signed By: ?<Electronically signed by Belem Trujillo MD in OV> ? 01/15/25 1715 ? DD/ 1713 ? TD/TT: 01/15/25 171 ? Elevator Installer Apprentice: ? Procedure Note Michell Velásquez - 01/15/[address] [address] XRay Report Signed Patient: Lauren Mathews#: [id number] : 9Acct:[id number] Age/Sex: 64 / MADM Date: 01/15/25 Loc: HO.ED Attending Dr: Ordering Physician: Ana Schilling Date of Service: 01/15/25 Procedure(s): XR chest 2V Accession Number(s): [id number] cc: Katlyn Dominguez; Ana Schilling CLINICAL HISTORY: R sided chest pain 2 view chest x-ray Comparison: CR/WI/SR - XR CHEST 1V - 01/14/25 10:19 EDT Findings: Mild linear opacities within the right lower lung. No consolidation or pleural effusion. No pneumothorax. Normal heart size. Tortuous aorta. No acute fracture. IMPRESSION: Mild linear atelectasis or scarring within the right lower lung. This document has been electronically signed by: Belem Trujillo MD on 01/15/2025 17:13:36 Dictated By: Belem Trujillo MD Signed By: <Electronically signed by Belem Trujillo MD in OV> 01/15/251714 DD/ 12 TD/TT: 01/15/251712 Elevator Installer Apprentice: [facility] External Provider IMG XR PROCEDURES Final Result * (ABNORMAL) CBC auto differential (01/15/2025 4:46 PM EDT) Only the most recent of2 resultswithin the time period is included. White Blood Count 9.3 4.8 - 10.8 X10*3/uL [facility] Red Blood Count 5.25 4.60 - 5.80 X10*6/uL [facility] Hemoglobin 15.6 14.0 - 18.0 g/dl [facility] Hematocrit 46.7 42.0 - 52.0 % [facility] Mean Corpuscular Volume 89.0 80.0 - 98.0 fL [facility] Mean Corpuscular Hemoglobin 29.7 27.0 - 33.0 pg [facility] Mean Corpuscular HGB Conc 33.4 31.0 - 36.0 g/dl [facility] Red Cell Distribution Width 13.1 11.0 - 16.0 % [facility] Platelet Count 193 160 - 400 X10*3/uL [facility] Mean Platelet Volume 10.8 9.4 - 12.4 fL [facility] Neutrophils Percent Auto 59.8 45 - 73 % [facility] Imm Gran Pct Auto 0.4 0.0 - 0.4 % [facility] Lymphocytes Percent Auto 28.4 20 - 40 % [facility] Monocytes Percent Auto 9.0 2 - 11 % [facility] Eosinophils Percent Auto 1.8 0 - 4 % [facility] Basophils Percent Auto 0.6 0 - 2 % [facility] NRBC Pct Auto 0.0 0.0 - 0.2 /100WBC [facility] Neutrophils Absolute Auto 5.5 2.0 - 8.3 x10*3/uL [facility] Imm Gran Abs Auto 0.04(H) 0.00 - 0.03 X10*3/uL [facility] Lymphocytes Absolute Auto 2.6 1.2 - 4.9 X10*3/uL [facility] Monocytes Absolute Auto 0.8 0.1 - 1.2 X10*3/uL [facility] Eosinophils Absolute Auto 0.2 0.0 - 0.4 X10*3/uL [facility] Basophils Absolute Auto 0.1 0.0 - 0.2 X10*3/uL [facility] NRBC Abs Auto 0.000 0.0 - 0.012 X10*3/uL [facility] 01/15/2025 4:46 PM EDT 01/15/2025 4:49 PM EDT us Generic External Data Provider LAB BLOOD ORDERAB LES Final Result Performing Organization Address City/[facility]/ZIP Co de Phone Number [facility] [address] [place] [phone] * Magnesium (01/15/2025 4:46 PM EDT) Magnesium 2.2 1.6 - 2.6 mg/dL [facility] 01/15/2025 4:46 PM EDT 01/15/2025 4:49 PM EDT us Generic External Data Provider LAB BLOOD ORDERAB LES Final Result Performing Organization Address City/[facility]/ZIP Co de Phone Number [facility] [address] [place] [phone] * Lipase (01/15/2025 4:46 PM EDT) Pathologist [facility] Lipase 28 8 - 78 U/L [facility] 01/15/2025 4:46 PM EDT 01/15/2025 4:49 PM EDT Generic External Data Provider LAB BLOOD ORDERAB LES Final Result Performing Organization Address [facility]/ZIP Co de Phone Number [facility] [address] [place] [address] [phone] * Hepatic Function Panel (01/15/2025 4:46 PM EDT) [facility] Bilirubin, Total 0.5 0.0 - 1.0 mg/dL [facility] Bilirubin, Direct 0.2 0.0 - 0.5 mg/dL [facility] Aspartate Amino Transferase 24 5 - 37 U/L [facility] Alanine Aminotransferase 27 0 - 40 U/L [facility] Total Protein 7.9 6.5 - 8.0 g/dL [facility] Albumin Level 4.4 3.5 - 5.0 g/dL [facility] Alkaline Phosphatase 70 39 - 117 U/L [facility] 01/15/2025 4:46 PM EDT 01/15/2025 4:49 PM EDT Generic External Data Provider LAB BLOOD ORDERAB LES Final Result Performing Organization Address City/[facility]/ZIP Co de Phone Number [facility] [address] [place] [address] [phone] * (ABNORMAL) Basic Metabolic Panel (01/15/2025 4:46 PM EDT) Only the most recent of2 resultswithin the time period is included. Pathologist [facility] Sodium 140 135 - 145 mmol/L [facility] Potassium 4.0 3.3 - 5.1 mmol/L [facility] Chloride 104 96 - 108 mmol/L [facility] Carbon Dioxide 26 22 - 29 mmol/L [facility] Anion Gap 14 12 - 20 [facility] Urea Nitrogen (BUN) 21(H) 9 - 16 mg/dL [facility] Creatinine, Serum 1.16 0.5 - 1.4 mg/dL [facility] Creatinine Clr Calc Pharmacy 54.4 [facility] Comment:eGFR (calculated fro m the MDRD study equation) and eCrCl(calculated from the Cockcroft-Gault equation) are based ondifferent parameters and may not yield comparable results.If eCrCl result is absurd, please check patient'sheight/weight. Estimated Glomerular Filt Rate >60 [facility] Comment:Chronic Kidney Disea se: Estimated GFR < 60 mL/min/1.23c3Tvlnfv Kidney Disease: Estimated GFR < 15 mL/min/1.73m2 Glucose 100 60 - 115 mg/dL [facility] Calcium 9.5 8.4 - 10.2 mg/dL [facility] 01/15/2025 4:46 PM EDT 01/15/2025 4:49 PM EDT us Generic External Data Provider LAB BLOOD ORDERAB LES Final Result Performing Organization Address [facility]/State/ZIP Co de Phone Number [facility] [address] [place] [address] [phone] * XR Chest 1 View (01/14/2025 10:18 AM EDT) Only the most recent of4 resultswithin the time period is included. Anatomical Region Laterality Modality Chest Radiographic Betty ging 01/14/2025 10:1 8 AM EDT Narrative 01/14/2025 11:02 AM EDT ? [facility] ?[address] ?[place] [address] ?XRay Report ? Signed ? Patient: Olivares Victoria,Clemente ?MR#: ?? [id number] ? : 1960 ?Acct:[id number] ? Age/Sex: 64 / M ?ADM Date: 03/17/25 ? Loc: HO.S3 ?380-1 ? Attending Dr: Cornelius Morales MD ? Ordering Physician: Leidy Cardoso PA-C ?? Date of Service: 01/14/25 ?? Procedure(s): XR chest 1V ?? Accession Number(s): [id number] ? cc: Katlyn Dominguez; Leidy Cardoso PA-C ? EXAMINATION: ??XR CHEST 1 VIEW ? HISTORY: f/u left chest tube removal ? COMPARISON: There are no prior studies for comparison. ? FINDINGS: ??A single AP portable view of the chest performed at 10:19 AM ?? is submitted. The left chest tube has been removed. There is ?? subsegmental atelectasis at the right lung base. The lungs are ?? otherwise clear. There is no pneumothorax. ??There is no pleural ?? effusion, pneumothorax, or pulmonary vascular congestion. ??The heart is ?? normal in size. ??The bones are intact. ? XR/XR chest 1V ?? IMPRESSION: ?? Interval removal of the left chest tube. No pneumothorax. ? Electronically signed by: ??Pan Mckeon MD ??01/14/2025 10:59 AM EDT ?? RP ? Dictated By: ?Pan Mckeon MD ? Signed By: ?<Electronically signed by Pan Mckeon MD in OV> ?01/14/25 1059 ? DD/ 1018 ? TD/TT: 01/14/25 1021 ? Elevator Installer Apprentice: ? Procedure Note Michell Velásquez - 01/14/[address] [address] XRay Report Signed Patient: Iveth MathewsR#: [id number] : 9Acct:[id number] Age/Sex: 64 / MADM Date: 01/12/25 Loc: HO.S3 380-[address]: Cornelius Morales MD Ordering Physician: Leidy Cardoso PA-C Date of Service: 01/14/25 Procedure(s): XR chest 1V Accession Number(s): [id number] cc: Katlyn Dominguez; Leidy Cardoso PA-C EXAMINATION: XR CHEST 1 VIEW HISTORY: f/u left chest tube removal COMPARISON: There are no prior studies for comparison. FINDINGS: A single AP portable view of the chest performed at 10:19 AM is submitted. The left chest tube has been removed. There is subsegmental atelectasis at the right lung base. The lungs are otherwise clear. There is no pneumothorax. There is no pleural effusion, pneumothorax, or pulmonary vascular congestion. The heart is normal in size. The bones are intact. XR/XR chest 1V IMPRESSION: Interval removal of the left chest tube. No pneumothorax. Electronically signed by: Pan Mckeon MD 01/14/2025 10:59 AM EDT RP Dictated By: Pan Mckeon MD Signed By: <Electronically signed by Pan Mckeon MD in OV> 01/14/25 1059 DD/ 1018 TD/TT: 01/14/25 1021 Elevator Installer Apprentice: [facility] External Provider IMG XR PROCEDURES Final Result * CT Chest Tube (01/12/2025 12:50 PM EDT) Anatomical Region Laterality Modality Computed Tomogra phy 01/12/2025 12:5 0 PM EDT Narrative 01/12/2025 5:46 PM EDT ? [facility] ?[address] ?[place] [address] ? CT Scan Report ? Signed ? Patient: Olivares Victoria,Clemente ?MR#: ?? [id number] ? : 1960 ?Acct:[id number] ? Age/Sex: 64 / M ?ADM Date: 03/17/25 ? Loc: HO.S3 ?380-1 ? Attending Dr: Cornelius Morales MD ? Ordering Physician: Jeremie Pace MD ?? Date of Service: 01/12/25 ?? Procedure(s): CT chest tube placement ?? Accession Number(s): [id number] ? cc: Katlyn Dominguez; Jeremie Pace MD ? Report Number: ?? [id number]: Total DLP = ??155.00 mGy-cm ?? PROCEDURE: ?? CT-GUIDED INSERTION, PLEURAL TUNNEL CATHETER ? CLINICAL INFORMATION: ?? Status post left lung biopsy pneumothorax. ? COMPARISON: ?? CT chest lung screening 11/24/2024 ? TECHNIQUE: ?? Following explaining CT-guided chest tube insertion procedure, benefits ?? in risk, a written consent was obtained. Patient was placed supine on ?? CT fluoroscopy table and preliminary CT imaging was obtained. An ?? optimal site was selected along the left anterolateral chest wall and ?? marked. The marked site was cleaned and draped in usual sterile manner. ?? 1% lidocaine was injected puncture site. There is small skin incision a ?? 4 Ethiopian Yueh catheter was advanced into the left anterior ?? pneumothorax. The stylet was withdrawn and 0.035 J-wire was advanced ?? and placed in the pleural space and Yueh catheter was withdrawn. 6 ?? Ethiopian APD catheter over a stiffener was advanced over guidewire and ?? placed within the pleural space. A guidewire and the stiffener was ?? lucent and the catheter advanced and placed in the upper hemithorax. ?? The catheter was then connected through a single valve to ?? hydropneumothorax water seal component which was subsequently to be ?? connected to -15 cm of water suction. The catheter was anchored to the ?? skin without sutures. Repeat CT imaging was obtained to confirm ?? position of the catheter. Patient targeted procedure extremely well. ?? This CT examination was performed using dose optimization techniques as ?? appropriate, variously including the following: ?? *Automated exposure control ?? *Adjustment of mA and/or kV according to patient size (this includes ?? techniques or standardized protocols for targeted exams where dose is ?? matched to indication/reason for exam; i.e. extremities or head) ?? *Use of iterative reconstruction technique ? FINDINGS/ ? CT/CT chest tube placement ?? IMPRESSION: ?? On preliminary CT imaging of chest there is a small to moderate-sized ?? left pneumothorax post biopsy. ? Under CT fluoroscopy 6 Ethiopian APD catheter was left in the left upper ?? hemithorax without immediate complications. Patient was admitted to the ?? hospital and watched overnight. ??. ? Electronically signed by: ??Jeremie Pace MD ??01/12/2025 05:43 PM EDT RP ? Dictated By: ?Jeremie Pace MD ? Signed By: ?<Electronically signed by Jeremei Pace MD in OV> ?01/12/25 1743 ? DD/ 1250 ? TD/TT: 01/12/25 1330 ? Elevator Installer Apprentice: MSM ? Procedure Note Donotuseinterpreter, Image - 01/12/[address] [address] [address] Scan Report Signed Patient: Lauren Mathews#: [id number] : 9Acct:[id number] Age/Sex: 64 / MADM Date: 01/12/25 Loc: .S3 380-[address]: Cornelius Morales MD Ordering Physician: Jeremie Pace MD Date of Service: 01/12/25 Procedure(s): CT chest tube placement Accession Number(s): [id number] cc: Katlyn Dominguez; Jeremie Pace MD Report Number: [id number]: Total DLP = 155.00 mGy-cm PROCEDURE: CT-GUIDED INSERTION, PLEURAL TUNNEL CATHETER CLINICAL INFORMATION: Status post left lung biopsy pneumothorax. COMPARISON: CT chest lung screening 11/24/2024 TECHNIQUE: Following explaining CT-guided chest tube insertion procedure, benefits in risk, a written consent was obtained. Patient was placed supine on CT fluoroscopy table and preliminary CT imaging was obtained. An optimal site was selected along the left anterolateral chest wall and marked. The marked site was cleaned and draped in usual sterile manner. 1% lidocaine was injected puncture site. There is small skin incision a 4 Ethiopian Yueh catheter was advanced into the left anterior pneumothorax. The stylet was withdrawn and 0.035 J-wire was advanced and placed in the pleural space and Yueh catheter was withdrawn. 6 Ethiopian APD catheter over a stiffener was advanced over guidewire and placed within the pleural space. A guidewire and the stiffener was lucent and the catheter advanced and placed in the upper hemithorax. The catheter was then connected through a single valve to hydropneumothorax water seal component which was subsequently to be connected to -15 cm of water suction. The catheter was anchored to the skin without sutures. Repeat CT imaging was obtained to confirm position of the catheter. Patient targeted procedure extremely well. This CT examination was performed using dose optimization techniques as appropriate, variously including the following: *Automated exposure control *Adjustment of mA and/or kV according to patient size (this includes techniques or standardized protocols for targeted exams where dose is matched to indication/reason for exam; i.e. extremities or head) *Use of iterative reconstruction technique FINDINGS/ CT/CT chest tube placement IMPRESSION: On preliminary CT imaging of chest there is a small to moderate-sized left pneumothorax post biopsy. Under CT fluoroscopy 6 Ethiopian APD catheter was left in the left upper hemithorax without immediate complications. Patient was admitted to the hospital and watched overnight. . Electronically signed by: Jeremie Pace MD 01/12/2025 05:43 PM EDT RP Dictated By: Jeremie Pace MD Signed By: <Electronically signed by Jeremie Pace MD in OV> 01/12/25 1743 DD/ 1250 TD/TT: 01/12/25 1330 Elevator Installer Apprentice: LOREN [facility] External Provider IMG CT PROCEDURES Final Result * CT Biopsy Lung Left (01/12/2025 10:50 AM EDT) Anatomical Region Laterality Modality Computed Tomogra phy 01/12/2025 10:5 0 AM EDT Narrative 01/13/2025 4:12 PM EDT ? [facility] ?[address] ?[place] [address] ? CT Scan Report ? Signed ? Patient: Olivares Victoria,Clemente ?MR#: ?? [id number] ? : 1960 ?Acct:[id number] ? Age/Sex: 64 / M ?ADM Date: 03/17/25 ? Loc: HO.S3 ?380-1 ? Attending Dr: Cornelius Morales MD ? Ordering Physician: Jcarlos Pimentel MD ?? Date of Service: 01/12/25 ?? Procedure(s): CT biopsy lung LT ?? Accession Number(s): [id number] ? cc: Katlyn Dominguez; Jcarlos Pimentel MD ? Report Number: ?? [id number]: Total DLP = ??796.00 mGy-cm ?? PROCEDURE: ?? CT GUIDED BIOPSY, LUNG ? CLINICAL INFORMATION: ?? Solitary pulmonary nodule left lower lobe ? COMPARISON: ?? None available. ? TECHNIQUE: ?? Following explaining CT fluoroscopy-guided left lower lobe pulmonary ?? nodule biopsy procedure, benefits in risk including pneumothorax and ?? surgical chest tube, a written consent was obtained. Patient was ?? initially placed in left lateral to greatest view followed by] view and ?? subsequently in a prone view the best approach. Coronary CTA markers ?? were placed along the posterior left chest on prone position. An ?? optimal lead marker was selected and marked and the skin. The marked ?? site was cleaned and draped in usual sterile manner. 1% lidocaine was ?? inserted puncture site. The 20-gauge guide needle was advanced from the ?? skin to left intercostal space. Coaxially a 20-gauge biopsy gun was ?? advanced and it to pass biopsy was performed. After observing a small ?? pneumothorax the examination was terminated. Repeat CT imaging was ?? obtained. Postprocedure compressive dressing was applied. Patient ?? targeted procedure extremely well. A chest x-ray was to be obtained 1 ?? hour post procedure. ??Conscious sedation was performed for 25 minutes ?? with Versed and fentanyl. I or nursing and physician was present and ?? monitored the patient during the exam. ? This CT examination was performed using dose optimization techniques as ?? appropriate, variously including the following: ?? *Automated exposure control ?? *Adjustment of mA and/or kV according to patient size (this includes ?? techniques or standardized protocols for targeted exams where dose is ?? matched to indication/reason for exam; i.e. extremities or head) ?? *Use of iterative reconstruction technique. ? FINDINGS/ ? CT/CT biopsy lung LT ?? IMPRESSION: ?? On CT fluoroscopy there is a 7 to 8 mm nodule left lower lobe medially ?? base posterior to the descending aorta. 2 biopsy passes were performed ?? in prone position. Minimal sample was collected and sent to lab. ?? Patient developed small pneumothorax on table. A chest x-ray was to ?? obtained to assess pneumothorax. ? Electronically signed by: ??Jeremie Pace MD ??01/13/2025 04:09 PM EDT RP ? Dictated By: ?Jeremie Pace MD ? Signed By: ?<Electronically signed by Jeremie Pace MD in OV> ?01/13/25 1609 ? DD/ 1050 ? TD/TT: 01/12/25 1130 ? Elevator Installer Apprentice: MSM ? Procedure Note Donotuseinterpreter, Image - 01/13/[address] [place] [address] [address] Scan Report Signed Patient: Lauren Mathews#: [id number] : 9Acct:[id number] Age/Sex: 64 / MADM Date: 01/12/25 Loc: .S3 380-[address]: Cornelius Morales MD Ordering Physician: Jcarlos Pimentel MD Date of Service: 01/12/25 Procedure(s): CT biopsy lung LT Accession Number(s): [id number] cc: Katlyn Dominguez; Jcarlos Pimentel MD Report Number: [id number]: Total DLP = 796.00 mGy-cm PROCEDURE: CT GUIDED BIOPSY, LUNG CLINICAL INFORMATION: Solitary pulmonary nodule left lower lobe COMPARISON: None available. TECHNIQUE: Following explaining CT fluoroscopy-guided left lower lobe pulmonary nodule biopsy procedure, benefits in risk including pneumothorax and surgical chest tube, a written consent was obtained. Patient was initially placed in left lateral to greatest view followed by] view and subsequently in a prone view the best approach. Coronary CTA markers were placed along the posterior left chest on prone position. An optimal lead marker was selected and marked and the skin. The marked site was cleaned and draped in usual sterile manner. 1% lidocaine was inserted puncture site. The 20-gauge guide needle was advanced from the skin to left intercostal space. Coaxially a 20-gauge biopsy gun was advanced and it to pass biopsy was performed. After observing a small pneumothorax the examination was terminated. Repeat CT imaging was obtained. Postprocedure compressive dressing was applied. Patient targeted procedure extremely well. A chest x-ray was to be obtained 1 hour post procedure. Conscious sedation was performed for 25 minutes with Versed and fentanyl. I or nursing and physician was present and monitored the patient during the exam. This CT examination was performed using dose optimization techniques as appropriate, variously including the following: *Automated exposure control *Adjustment of mA and/or kV according to patient size (this includes techniques or standardized protocols for targeted exams where dose is matched to indication/reason for exam; i.e. extremities or head) *Use of iterative reconstruction technique. FINDINGS/ CT/CT biopsy lung LT IMPRESSION: On CT fluoroscopy there is a 7 to 8 mm nodule left lower lobe medially base posterior to the descending aorta. 2 biopsy passes were performed in prone position. Minimal sample was collected and sent to lab. Patient developed small pneumothorax on table. A chest x-ray was to obtained to assess pneumothorax. Electronically signed by: Jeremie Pace MD 01/13/2025 04:09 PM EDT RP Dictated By: Jeremie Pace MD Signed By: <Electronically signed by Jeremie Pace MD in OV> 01/13/25 1609 DD/ 1050 TD/TT: 01/12/25 1130 Elevator Installer Apprentice: LOREN [facility] External Provider IMG CT PROCEDURES Final Result * Partial Thromboplastin Time, Activated (APTT) (01/12/2025 9:57 AM EDT) Partial Thromboplastin Time 28.1 26.0 - 36.8 SEC [facility] Comment:For information rega rding the monitoring of direct thrombininhibitors, please refer to Pharmacy. 01/12/2025 9:57 AM EDT 01/12/2025 10:10 AM EDT Generic External Data Provider LAB BLOOD ORDERAB LES Final Result [facility] [address] [place] [phone] * Prothrombin Time-INR (01/12/2025 9:57 AM EDT) Prothrombin Time 11.0 10.9 - 12.4 SEC [facility] INTERNATIONAL NORM RATIO 0.9 0.9 - 1.1 [facility] Comment:INTERNATIONAL NORMAL IZED RATIO (INR) REFERENCE RANGES Reference RangeFor patients not on anticoagulant therapy: 0.9 - 1.1INR ranges for oral anticoagulanttherapy:For prevention and treatment of venous thrombosis and pulmonary embolism: 2.0 - 3.0For acute myocardial infarction with aspirin therapy: 2.0 - 3.0For acute myocardial infarction without aspirin therapy: 3.0 - 4.0For patients with mechanical prosthetic heart valves: 2.5 - 3.5 01/12/2025 9:57 AM EDT 01/12/2025 10:10 AM EDT us Generic External Data Provider LAB BLOOD ORDERAB LES Final Result [facility] [address] [place] [address] [phone] * CT Lung Screening Low dose (11/24/2024 5:42 PM EST) Anatomical Region Laterality Modality Lung Computed Tomogra phy 11/24/2024 5:42 PM EST Narrative 11/24/2024 5:43 PM EST ? [facility] ?[address] ?[place] [address] ? CT Scan Report ? Signed ? Patient: Olivares Victoria,Clemente ?MR#: ?? [id number] ? : 1960 ?Acct:[id number] ? Age/Sex: 64 / M ?ADM Date: 11/24/ ? Loc: HO.CT ? Attending Dr: Keren Morrissey PA-C ? Ordering Physician: Keren Morrissey PA-C ?? Date of Service: 11/24/24 ?? Procedure(s): CT lung screening ?? Accession Number(s): [id number] ? cc: Katlyn Dominguez; Keren Morrissey PA-C ? Report Number: ?? [id number]: Total DLP = ?? 44.00 mGy-cm ? CLINICAL HISTORY: F17.210 - Nicotine dependence, cigarettes, uncomplicated ? CT lung cancer screening (LDCT) ? Comparison: CT/WI/SR - CT LUNG SCREEN FOLLOW UP - 11/21/23 14:12 EST ?? CT/WI/SR - CT LUNG SCREENING - 08/09/23 10:25 [...] in OV> ? 11/24/24 1743 ? DD/ 174 ? TD/TT: 11/24/24 1742 ? Elevator Installer Apprentice: ? Procedure Note Donjoseinterpreter, Image - 11/24/[address] [place] [address] [address] Scan Report Signed Patient: Lauren Mathews#: [id number] : 9Acct:[id number] Age/Sex: 64 / MADM Date: 11/24/24 Loc: HO.CT Attending Dr: Keren Morrissey PA-C Ordering Physician: Keren Morrissey PA-C Date of Service: 11/24/24 Procedure(s): CT lung screening Accession Number(s): [id number] cc: Katlyn Dominguez; Keren Morrissey PA-C Report Number: [id number]: Total DLP = 44.00 mGy-cm CLINICAL HISTORY: F17.210 - Nicotine dependence, cigarettes, uncomplicated CT lung cancer screening (LDCT) Comparison: CT/WI/SR - CT LUNG SCREEN FOLLOW UP - 11/21/23 14:[address]/WI/SR - CT LUNG SCREENING - 08/09/23 10:25 [...] in OV> 11/24/241742 DD/ 41 TD/TT: 11/24/241741 Elevator Installer Apprentice: [facility] External Provider IMG CT PROCEDURES Final Result * (ABNORMAL) Lipid Panel, Standard (09/18/2024 9:05 AM EST) Triglycerides 136 <150 mg/dL [facility] Comment:Desirable Triglyceri de: less than 150 mg/dLBorderline High Triglyceride 150-199 mg/dLHigh Triglyceride: 200-499 mg/dLVery High Triglyceride: greater than or equal to 5OO mg/dL Cholesterol 204(H) <200 mg/dL [facility] Comment:Desirable Cholestero l: less than 200 mg/dLBorderline High Cholesterol: 200-239 mg/dLHigh Cholesterol: greater than 239 mg/dL LDL Cholesterol Calculated 128(H) <100 mg/dL [facility] Comment:Desirable LDL: less than 100 mg/dLNear Optimal/Above Optimal LDL: 110- 129 mg/dLBorderline High LDL: 130-159 mg/dLHigh LDL: 160-189 mg/dLVery High LDL: greater than or equal to 190 mg/dL HDL Cholesterol 49 >40 mg/dL [facility] Comment:Desirable HDL: great er than 40 mg/dL Note: This HDL assay may give artificially low results in patients with liver disease. Blood Venous blood specimen / Unknown 09/18/2024 9:05 AM EST 09/18/2024 11:09 AM EST us Katlyn Dominguez MD LAB BLOOD ORDERABLES Final Res ult [facility] [address] [place] [address] [phone] from Last 3 Months or Most Recently Relevant to Health Maintenance Insurance MEDICARE [facility] FULL Care Teams Stone Banker Relationship Specialty Start Date End Date Katlyn Dominguez MD [address] [place] [address] PCP - General Family Medicine 12/14/20
--- OUTSIDE RECORDS SUMMARY | 2025-02-02 10:44 | XMS_ITS | Encounter Summary ---
Author Organization [email or web address] Address [address] [facility] [address]t [place] [address] Care Team Providers Care Neonatal Critical Care Nurse Name Role Phone Katlyn Dominguez MD Primary Care Provider [phone] Reason for Visit * Reason Comments Med Refill Encounter Details Date Type Department Care Team ([facility] st Contact Info) Description 05/30/2024 Refill [facility] MEDICINE [address] [place], [place] [phone] Katlyn Dominguez MD [address] [place], [place] [phone] Social History Tobacco Use Types Packs/Day Years [...] on filedocumented in this encounter Care Teams Neonatal Critical Care Nurse Relationship Specialty Start Date End Date Katlyn Dominguez MD [address] [place] [phone] PCP - General Family Medicine 12/14/20 documented as of this encounter
--- OUTSIDE RECORDS SUMMARY | 2025-02-02 10:44 | XMS_ITS | Encounter Summary ---
Author Organization [employer] Address [address] [facility] [address] [place] [address] Care Team Providers Care Bankruptcy Processor Name Role Phone Katlyn Dominguez MD Primary Care Provider [phone] Encounter Details Date Type Department Care Team ([facility] st Contact Info) Description 01/23/2023 Orders Only [facility] MED & PEDS [address] [place] [address] Phyllis Vázquez LPN Social History Tobacco Use [...] on filedocumented in this encounter Care Teams Bankruptcy Processor Relationship Specialty Start Date End Date Katlyn Dominguez MD [address] [place] [address] PCP - General Family Medicine 12/14/20 documented as of this encounter
--- OUTSIDE RECORDS SUMMARY | 2025-02-02 10:44 | XMS_ITS | Encounter Summary ---
Author Organization [employer] Address [address] [facility] 7t [place] [address] Care Team Providers Care Teacher Of The Deaf/Hard Of Hearing Name Role Phone Katlyn Dominguez MD Primary Care Provider [phone] Encounter Details Date Type Department Care Team ([facility] st Contact Info) Description 10/24/2024 Orders Only [facility] MEDICINE [address] [place], [place] [phone] Katlyn Dominguez MD [address] [place], [place] [phone] Social History Tobacco Use Types Packs/Day Years [...] documented as of this encounter Care Teams Teacher Of The Deaf/Hard Of Hearing Relationship Specialty Start Date End Date Katlyn Dominguez MD [address] [place] [phone] PCP - General Family Medicine 12/14/20 documented as of this encounter
== END 2025-02-02 09:31 | disposition home or self-care (01) ==
LOC: HO.PET 09:30
PROVIDERS: PCP General Practice; Visit Provider Surgery
DX: Z13.89 Encounter for screening for other disorder (principal)

== ENCOUNTER 2025-02-10 13:39 | Outpatient (REF) | payer MEDICARE, SELFPAY ==
--- NOTE | ~2025-02-10 | PE_ITS ---
EXAMINATION: FLUORINE-18 FDG PET/CT SCAN CLINICAL INFORMATION: Enlarging left lower lobe lung mass. TECHNIQUE: 70 minutes following the intravenous administration of 19.7 mCi of fluorine 18 FDG, images from the skull base to proximal thigh were obtained using a combined PET/CT scanner with CT scan based attenuation correction. No oral or intravenous contrast was administered. Transverse, coronal, sagittal, and volume reconstruction projections were obtained. The patient's blood glucose as determined by a finger stick, was 92 mg/dL immediately prior to injection. The radiotracer was injected intravenously through left antecubital vein, without any complications. Total CT exam dose-length product 657 mGy-cm. * These CT images were obtained using dose optimization techniques as appropriate, variously including the following: Automated exposure control * Adjustment of mA and/or kV according to patient size (this includes techniques or standardized protocols for targeted exams where dose is matched to indication/reason for exam; i.e. extremities or head) * Use of iterative reconstruction technique COMPARISON: None available. FINDINGS: HEAD AND NECK: No abnormal radiotracer uptake. No large intracranial hemorrhage, acute territorial infarct or significant shift of midline structures. CHEST: Ports and Devices: None Lungs: There is a left lower lobe segment 8 mm nodules seen previously. The size on CT is unchanged. There is moderate focal FDG activity seen suspicious and suggestive of primary nodule. No additional areas of metabolic activity seen at this time. Pleura: No pleural effusion or thickening. No FDG activity. Lymph Nodes: Abnormal FDG activity seen in the mediastinum Mediastinum: there is no significant pericardial effusion/thickening. Breasts/Chest Wall: No abnormal radiotracer uptake. ABDOMEN/PELVIS: Liver/Biliary System: No focal tracer-avid liver lesion. The gallbladder appears unremarkable. Pancreas: Normal.No pancreatic ductal dilatation. No peripancreatic fluid collection. Spleen: No abnormal radiotracer uptake. No evidence of splenomegaly. Adrenal Glands: No abnormal radiotracer uptake. Kidneys: No hydronephrosis, hydroureter or renal calculi bilaterally. Bowel: There is no significant bowel dilatation to suggest obstruction. No free air or free fluid. Lymph Nodes: No tracer avid retroperitoneal, mesenteric or pelvic and/or groin lymphadenopathy. Pelvic Organs: The urinary bladder is underdistended. MUSCULOSKELETAL: No aggressive lytic or sclerotic process process. No abnormal FDG activity seen VASCULAR: Unremarkable. THE SITE(S) OF MOST INTENSE FDG AVIDITY AND SUV MAX: PET/PET CT fusion skull to thigh IMPRESSION: Solitary nodule left lower lobe superior segment with moderate metabolic activity suggestive probably nodule. No additional areas of FDG activity seen in the lungs mediastinum, neck, abdomen and pelvis. Previously noted post biopsy left pneumothorax has resolved. Electronically signed by: Jeremie Pace MD 02/12/2025 01:48 PM EDT RP
== END 2025-02-10 13:40 | disposition home or self-care (01) ==
LOC: HO.PET 13:39
PROVIDERS: PCP General Practice; Visit Provider Surgery
DX: Z13.89 Encounter for screening for other disorder (principal)

== ENCOUNTER 2025-03-02 14:26 | Outpatient (AMB) | payer MEDICARE, SELFPAY ==
--- NOTE | 2025-03-02 14:29 | A.OFFVIS_ITS ---
Vital Signs 03/02/25 14:30 Height 5 ft 5 in Weight 165 lb 5.547 oz BMI 27.5 BP 141/81 H Blood Pressure Location Lt brachial Position Sitting Pulse 67 Pulse Source Pulse Oximeter Pulse Oximetry (%) 99 Oxygen Delivery Method Room Air Intake Visit Reasons: PET scan results Intake Note: Patient here to discuss PET scan results from 02-10-2025. ? pulmonary nodule Patient c/o: None Allergies No Known Allergies Allergy (Verified 03/02/25 14:32) Medication List - Last Reconciled 03/02/25 by Stewart Lam MD cholecalciferol (vitamin D3) 50 mcg PO QAM cyclobenzaprine 10 mg PO TID PRN diclofenac sodium 1% 2 grams topical QID ibuprofen 800 mg PO Q8H PRN lidocaine 5% 1 patch topical DAILY lisinopril-hydrochlorothiazide 20-25 mg 1 tab PO QAM HPI HPI PET scan results: Details: He is here for follow-up. He was sent by Dr. Kirk for a PET scan because of a left lower lobe lung mass. He had a previous biopsy which was non diagnostic. He denies any new complaints. He is a known smoker. [facility] Medical History COPD (chronic obstructive pulmonary disease) Coronary artery calcification seen on CAT scan History of diabetes mellitus, type II Nicotine dependence, cigarettes, uncomplicated Hypertension Surgical History Pulmonary nodules History of colonoscopy History of shoulder surgery History of lumbar surgery Social History Household Members: Significant Other Housing: House Are you a primary home care scheduler to a significant other at home: No Do you presently have visiting nurse or other home services: No Alcohol intake: never Patient Tobacco Use Status: Current everyday Tobacco user Tobacco use type: Cigarette Cigarettes Per Day: 6 Years Smoked: onset 9yo, 1ppd x 53yrs, 50pyh Second Hand Smoke Exposure: Yes Substance Use Type: Marijuana service: No Current occupational status: disabled Review of Systems Const Denies chills and Denies fever(s) Card Denies chest pain, Denies dyspnea and Denies dyspnea on exertion Resp Denies cough, Denies dyspnea and Denies dyspnea on exertion GI Denies hematochezia and Denies change in bowel habits Denies hematuria and Denies difficulty urinating Musc Denies back pain and Denies limited range of motion Neuro Denies focal weakness and Denies convulsions Psych Denies depression and Denies mood swings Physical Exam Vital Signs: Last Vital Signs Pulse 67 03/02/25 14:30 BP 141/81 H 03/02/25 14:30 Pulse Ox 99 03/02/25 14:30 Oxygen Delivery Method Room Air 03/02/25 14:30 BMI result Body Mass Index 27.5 Const General: comfortable and no acute distress Resp Effort & Inspection: normal respiratory effort Cardio Rate: regular rate GI Palpation (GI): Soft to palpation and not firm Assessment & Plan Assessment & Plan (1) Pulmonary nodule 1 cm or greater in diameter: Code(s): R91.1 - Solitary pulmonary nodule Category: Medical Plan: He had a lung mass with a nondiagnostic lung biopsy done by IR. He was sent by Dr. Kirk for a PET scan. This shows moderate metabolic activity in the nodule on the left lower lobe superior segment. No additional areas of FDG activity were seen. Because of the suspicion for a neoplastic process, I will refer him to Dr. Swain in [facility] in [place]. I explained this to him and he says he understands. Orders: Referrals Thoracic/General Surgery Referral R91.1 - Solitary pulmonary nodule Coding Level of Care Code Est Pt Level 3 (38970) Diagnoses Pulmonary nodule 1 cm or greater in diameter R91.1
[2025-03-02 14:30] VITALS: BP 141/81; PULSE 67; O2SAT 99; BMI 27.5
--- OUTSIDE RECORDS SUMMARY | 2025-03-02 15:58 | XMS_ITS | Encounter Summary ---
Author Organization [employer] Address [address] [facility] [address]t [place] [address] Care Team Providers Care Optical Engineering Technician Name Role Phone Katlyn Dominguez MD Primary Care Provider Reason for Visit * Reason Comments Med Refill Encounter Details Date Type Department Care Team ([facility] st Contact Info) Description 05/30/[address] [facility] MEDICINE [address] [place], [place] [phone] Katlyn Dominguez MD [address] [place], [place] [phone] Social History Tobacco Use Types Packs/Day Years [...] on filedocumented in this encounter Care Teams Optical Engineering Technician Relationship Specialty Start Date End Date Katlyn Dominguez MD [address] [place] [phone] PCP - General Family Medicine 12/14/20 documented as of this encounter
--- OUTSIDE RECORDS SUMMARY | 2025-03-02 15:58 | XMS_ITS | Encounter Summary ---
Author Organization [employer] Address [address] [facility] [address] [place] [address] Care Team Providers Care Advice Nurse Name Role Phone Katlyn Dominguez MD Primary Care Provider [phone] Encounter Details Date Type Department Care Team ([facility] st Contact Info) Description 10/24/2024 Orders Only [facility] MEDICINE [address] [place], [place] [phone] Katlyn Dominguez MD [address] [place], [place] [phone] Social History Tobacco Use Types Packs/Day Years [...] documented as of this encounter Care Teams Advice Nurse Relationship Specialty Start Date End Date Katlyn Dominguez MD [address] [place] [phone] PCP - General Family Medicine 12/14/20 documented as of this encounter
--- OUTSIDE RECORDS SUMMARY | 2025-03-02 15:58 | XMS_ITS | Clinical Summary ---
Author Organization [employer] Address [address] [facility] [address] [place] [address] Care Team Providers Care Accuracy Expert Name Role Phone Katlyn Dominguez MD Primary Care Provider [phone] Allergies No known active allergies Medications terbinafine [...] Plan (11/26/2023 10:38 AM EST): Referral to [facility] Annual physical exam 05/23/2023 [...] Encounters Date Type Department Care Team Description 02/10/2025 Orders Only [facility] External Provider, [facility] 01/15/2025 Orders Only GENERIC EXTERNAL DATA DEPARTMENT Provider, Generic External Data 01/12/2025 Orders Only GENERIC EXTERNAL DATA DEPARTMENT Provider, Generic External Data from Last 3 Months Immunizations Name Administration [...] 03/04/2021 Influenza Vaccine (#1) 2024 09/11/2022 Depression Screening 09/10/2025 09/10/2024, 09/10/2024 SDOH Screening [...] Procedure Name Priority Date/Time Associated Diagnosis Comments PET/CT BONE SKULL BASE TO MID THIGH Routine 02/10/2025 1:45 PM EDT XR CHEST 2 VIEWS Routine 01/15/2025 5:13 [...] AUTO DIFFERENTIAL Routine 01/12/2025 9:57 AM EDT LIPID PANEL, STANDARD Routine 09/18/2024 9:05 AM EST Essential hypertension from Last 3 Months or Most Recently Relevant to Health Maintenance Results * PET/CT Bone Skull Base to Mid Thigh (02/10/2025 1:45 PM EDT) Anatomical Region Laterality Modality Body Computed Tomogra phy 02/10/2025 1:45 PM EDT Narrative 02/12/2025 1:51 PM EDT ? [facility] ?[address] ?[place] [address] ? PET Report ? Signed ? Patient: Olivares Victoria,Clemente ?MR#: ?? [id number] ? : 1960 ?Acct:[id number] ? Age/Sex: 64 / M ?ADM Date: 04/15/25 ? Loc: HO.PET ? Attending Dr: Joel Kirk MD ? Ordering Physician: Joel Kirk MD ?? Date of Service: 02/10/25 ?? Procedure(s): PET CT fusion skull to thigh ?? Accession Number(s): [id number] ? cc: Katlyn Dominguez; Joel Kirk MD ? EXAMINATION: ?? FLUORINE-18 FDG PET/CT SCAN ? CLINICAL INFORMATION: ?? Enlarging left lower lobe lung mass. ? TECHNIQUE: ?? 70 minutes following the intravenous administration of 19.7 mCi of ?? fluorine 18 FDG, images from the skull base to proximal thigh were ?? obtained using a combined PET/CT scanner with CT scan based attenuation ?? correction. No oral or ??intravenous contrast was administered. ?? Transverse, coronal, sagittal, and volume reconstruction projections ?? were obtained. The patient's blood glucose as determined by a finger ?? stick, was 92 ??mg/dL immediately prior to injection. ? The radiotracer was injected intravenously through left antecubital ?? vein, without any complications. ? Total CT exam dose-length product 657 mGy-cm. ? * These CT images were obtained using dose optimization techniques as ?? appropriate, variously including the following: Automated exposure ?? control ?? * Adjustment of mA and/or kV according to patient size (this includes ?? techniques or standardized protocols for targeted exams where dose is ?? matched to indication/reason for exam; i.e. extremities or head) ?? * Use of iterative reconstruction technique ? COMPARISON: ?? None available. ? FINDINGS: ? HEAD AND NECK: No abnormal radiotracer uptake. ? No large intracranial hemorrhage, acute territorial infarct or ?? significant shift of midline structures. ? CHEST: ?? Ports and Devices: None ? Lungs: There is a left lower lobe segment 8 mm nodules seen previously. ?? The size on CT is unchanged. There is moderate focal FDG activity seen ?? suspicious and suggestive of primary nodule. No additional areas of ?? metabolic activity seen at this time. ? Pleura: No pleural effusion or thickening. No FDG activity. ? Lymph Nodes: Abnormal FDG activity seen in the mediastinum ? Mediastinum: there is no significant pericardial effusion/thickening. ? Breasts/Chest Wall: No abnormal radiotracer uptake. ? ABDOMEN/PELVIS: ?? Liver/Biliary System: No focal tracer-avid liver lesion. The ?? gallbladder appears unremarkable. ? Pancreas: Normal.No pancreatic ductal dilatation. No peripancreatic ?? fluid collection. ? Spleen: No abnormal radiotracer uptake. No evidence of splenomegaly. ? Adrenal Glands: No abnormal radiotracer uptake. ? Kidneys: No hydronephrosis, hydroureter or renal calculi bilaterally. ? Bowel: There is no significant bowel dilatation to suggest obstruction. ?? No free air or free fluid. ? Lymph Nodes: No tracer avid retroperitoneal, mesenteric or pelvic ?? and/or groin lymphadenopathy. ? Pelvic Organs: The urinary bladder is underdistended. ? MUSCULOSKELETAL: No aggressive lytic or sclerotic process process. No ?? abnormal FDG activity seen ? VASCULAR: Unremarkable. ? THE SITE(S) OF MOST INTENSE FDG AVIDITY AND SUV MAX: ? PET/PET CT fusion skull to thigh ?? IMPRESSION: ?? Solitary nodule left lower lobe superior segment with moderate ?? metabolic activity suggestive probably nodule. No additional areas of ?? FDG activity seen in the lungs mediastinum, neck, abdomen and pelvis. ? Previously noted post biopsy left pneumothorax has resolved. ? Electronically signed by: ??Jeremie Pace MD ??02/12/2025 01:48 PM EDT RP ? Dictated By: ?Jeremie Pace MD ? Signed By: ?<Electronically signed by Jeremie Pace MD in OV> ?02/12/25 1348 ? DD/ 1345 ? TD/TT: 02/10/25 1555 ? Shoe Designer: MSM ? Procedure Note Christen, Image - 02/12/2025 [place] [address] PET Report Signed Patient: Lauren Mathews#: [id number] : 9Acct:[id number] Age/Sex: 64 / MADM Date: 02/10/25 Loc: HO.PET Attending Dr: Joel Kirk MD Ordering Physician: Joel Kirk MD Date of Service: 02/10/25 Procedure(s): PET CT fusion skull to thigh Accession Number(s): [id number] cc: Katlyn Dominguez; Joel Kirk MD EXAMINATION: FLUORINE-18 FDG PET/CT SCAN CLINICAL INFORMATION: Enlarging left lower lobe lung mass. TECHNIQUE: 70 minutes following the intravenous administration of 19.7 mCi of fluorine 18 FDG, images from the skull base to proximal thigh were obtained using a combined PET/CT scanner with CT scan based attenuation correction. No oral or intravenous contrast was administered. Transverse, coronal, sagittal, and volume reconstruction projections were obtained. The patient's blood glucose as determined by a finger stick, was 92 mg/dL immediately prior to injection. The radiotracer was injected intravenously through left antecubital vein, without any complications. Total CT exam dose-length product 657 mGy-cm. * These CT images were obtained using dose optimization techniques as appropriate, variously including the following: Automated exposure control * Adjustment of mA and/or kV according to patient size (this includes techniques or standardized protocols for targeted exams where dose is matched to indication/reason for exam; i.e. extremities or head) * Use of iterative reconstruction technique COMPARISON: None available. FINDINGS: HEAD AND NECK: No abnormal radiotracer uptake. No large intracranial hemorrhage, acute territorial infarct or significant shift of midline structures. CHEST: Ports and Devices: None Lungs: There is a left lower lobe segment 8 mm nodules seen previously. The size on CT is unchanged. There is moderate focal FDG activity seen suspicious and suggestive of primary nodule. No additional areas of metabolic activity seen at this time. Pleura: No pleural effusion or thickening. No FDG activity. Lymph Nodes: Abnormal FDG activity seen in the mediastinum Mediastinum: there is no significant pericardial effusion/thickening. Breasts/Chest Wall: No abnormal radiotracer uptake. ABDOMEN/PELVIS: Liver/Biliary System: No focal tracer-avid liver lesion. The gallbladder appears unremarkable. Pancreas: Normal.No pancreatic ductal dilatation. No peripancreatic fluid collection. Spleen: No abnormal radiotracer uptake. No evidence of splenomegaly. Adrenal Glands: No abnormal radiotracer uptake. Kidneys: No hydronephrosis, hydroureter or renal calculi bilaterally. Bowel: There is no significant bowel dilatation to suggest obstruction. No free air or free fluid. Lymph Nodes: No tracer avid retroperitoneal, mesenteric or pelvic and/or groin lymphadenopathy. Pelvic Organs: The urinary bladder is underdistended. MUSCULOSKELETAL: No aggressive lytic or sclerotic process process. No abnormal FDG activity seen VASCULAR: Unremarkable. THE SITE(S) OF MOST INTENSE FDG AVIDITY AND SUV MAX: PET/PET CT fusion skull to thigh IMPRESSION: Solitary nodule left lower lobe superior segment with moderate metabolic activity suggestive probably nodule. No additional areas of FDG activity seen in the lungs mediastinum, neck, abdomen and pelvis. Previously noted post biopsy left pneumothorax has resolved. Electronically signed by: Jeremie Pace MD 02/12/2025 01:48 PM EDT RP Dictated By: Jeremie Pace MD Signed By: <Electronically signed by Jeremie Pace MD in OV> 02/12/25 1348 DD/ 1345 TD/TT: 02/10/25 2385 Shoe Designer: LOREN [facility] External Provider IMG CT PROCEDURES Final Result * XR Ribs 2 Views Right (01/15/2025 5:13 PM EDT) Anatomical Region Laterality Modality Rib, Abdomen Right Radiographic Betty ging 01/15/2025 5:13 PM EDT Narrative 01/15/2025 5:14 PM EDT ? [facility] ?[address] ?[place] [address] ?XRay Report ? Signed ? Patient: Marshall Victoria,Clemente ?MR#: ?? [id number] ? : 1960 ?Acct:[id number] ? Age/Sex: 64 / M ?ADM Date: 01/15/25 ? Loc: HO.ED ? Attending Dr: ? Ordering Physician: Ana Schilling ?? Date of Service: 01/15/25 ?? Procedure(s): XR ribs RT 2V ?? Accession Number(s): [id number] ? cc: Katlyn Dominguez; Ana Schilling ? [...] by Belem Trujillo MD in OV> ? 01/15/251713 ? DD/ 12 ? TD/TT: 03/20/25 1713 ? Shoe Designer: ? Procedure Note Dondarlinter, Image - 01/15/[address] [address] XRay Report Signed Patient: Iveth MathewsR#: [id number] : 9Acct:[id number] Age/Sex: 64 / MADM Date: 01/15/25 Loc: HO.ED Attending Dr: Ordering Physician: Ana Schilling Date of Service: 01/15/25 Procedure(s): XR ribs RT 2V Accession Number(s): [id number] cc: Katlyn Dominguez; Ana Schilling CLINICAL HISTORY: [...] in OV> 01/15/251713 DD/ 12 TD/TT: 01/15/251712 Shoe Designer: [facility] External Provider IMG XR PROCEDURES Final Result * XR Chest 2 Views (01/15/2025 5:13 PM EDT) Anatomical Region Laterality Modality Chest Radiographic Betty ging 01/15/2025 5:13 PM EDT Narrative 01/15/2025 5:15 PM EDT ? [facility] ?[address] ?[place] [address] ?XRay Report ? Signed ? Patient: Olivares Victoria,Clemente ?MR#: ?? [id number] ? : 1960 ?Acct:[id number] ? Age/Sex: 64 / M ?ADM Date: 03/20/25 ? Loc: HO.ED ? Attending Dr: ? Ordering Physician: Ana Schilling ?? Date of Service: 01/15/25 ?? Procedure(s): XR chest 2V ?? Accession Number(s): [id number] ? cc: Katlyn Dominguez; Ana Schilling ? CLINICAL HISTORY: R sided chest pain ? 2 view chest x-ray ? Comparison: CR/NC/SR - XR CHEST 1V - 01/14/25 10:19 [...] 1715 ? DD/ 1713 ? TD/TT: 01/15/25 1713 ? Shoe Designer: ? Procedure Note Christen, Image - 01/15/2025 [place] [address] XRay Report Signed Patient: Lauren Mathews#: [id number] : 9Acct:[id number] Age/Sex: 64 / MADM Date: 01/15/25 Loc: .ED Attending Dr: Ordering Physician: Ana Schilling Date of Service: 01/15/25 Procedure(s): XR chest 2V Accession Number(s): [id number] cc: Katlyn Dominguez; Ana Schilling CLINICAL HISTORY: R sided chest pain 2 view chest x-ray Comparison: CR/NC/SR - XR CHEST 1V - 01/14/25 10:19 [...] in OV> 01/15/251714 DD/ 12 TD/TT: 01/15/251712 Shoe Designer: [facility] External Provider IMG XR PROCEDURES Final Result * (ABNORMAL) CBC auto differential (01/15/2025 4:46 PM EDT) Only the most recent of2 resultswithin the time period is included. White Blood Count 9.3 4.8 - 10.8 X10*3/uL [facility] Red Blood Count 5.25 4.60 - 5.80 X10*6/uL [facility] Hemoglobin 15.6 14.0 - 18.0 g/dl [facility] Hematocrit 46.7 42.0 - 52.0 % [facility] Mean Corpuscular Volume 89.0 80.0 - 98.0 fL [facility] Mean Corpuscular Hemoglobin 29.7 27.0 - 33.0 pg [facility] Mean Corpuscular HGB Conc 33.4 31.0 - 36.0 g/dl [facility] Red Cell Distribution Width 13.1 11.0 - 16.0 % [facility] Platelet Count 193 160 - 400 X10*3/uL [facility] Mean Platelet Volume 10.8 9.4 - 12.4 fL [facility] Neutrophils Percent Auto 59.8 45 - 73 % [facility] Imm Gran Pct Auto 0.4 0.0 - 0.4 % [facility] Lymphocytes Percent Auto 28.4 20 - 40 % [facility] Monocytes Percent Auto 9.0 2 - 11 % [facility] Eosinophils Percent Auto 1.8 0 - 4 % [facility] Basophils Percent Auto 0.6 0 - 2 % [facility] NRBC Pct Auto 0.0 0.0 - 0.2 /100WBC [facility] Neutrophils Absolute Auto 5.5 2.0 - 8.3 x10*3/uL [facility] Imm Gran Abs Auto 0.04(H) 0.00 - 0.03 X10*3/uL [facility] Lymphocytes Absolute Auto 2.6 1.2 - 4.9 X10*3/uL [facility] Monocytes Absolute Auto 0.8 0.1 - 1.2 X10*3/uL [facility] Eosinophils Absolute Auto 0.2 0.0 - 0.4 X10*3/uL [facility] Basophils Absolute Auto 0.1 0.0 - 0.2 X10*3/uL [facility] NRBC Abs Auto 0.000 0.0 - 0.012 X10*3/uL [facility] 01/15/2025 4:46 PM EDT 01/15/2025 4:49 PM EDT Generic External Data Provider LAB BLOOD ORDERAB LES Final Result Performing Organization Address City/[facility]/ZIP Co de Phone Number [facility] [address] [place] [phone] * Magnesium (01/15/2025 4:46 PM EDT) Magnesium 2.2 1.6 - 2.6 mg/dL [facility] 01/15/2025 4:46 PM EDT 01/15/2025 4:49 PM EDT Generic External Data Provider LAB BLOOD ORDERAB LES Final Result Performing Organization Address [facility] Co de Phone Number [facility] [address] [place] [phone] * Lipase (01/15/2025 4:46 PM EDT) Lipase 28 8 - 78 U/L [facility] 01/15/2025 4:46 PM EDT 01/15/2025 4:49 PM EDT us Generic External Data Provider LAB BLOOD ORDERAB LES Final Result Performing Organization Address [facility]/ZIP Co de Phone Number [facility] [address] [place] [phone] * Hepatic Function Panel (01/15/2025 4:46 PM EDT) Bilirubin, Total 0.5 0.0 - 1.0 mg/dL [facility] Bilirubin, Direct 0.2 0.0 - 0.5 mg/dL [facility] Aspartate Amino Transferase 24 5 - 37 U/L [facility] Alanine Aminotransferase 27 0 - 40 U/L [facility] Total Protein 7.9 6.5 - 8.0 g/dL [facility] Albumin Level 4.4 3.5 - 5.0 g/dL [facility] Alkaline Phosphatase 70 39 - 117 U/L [facility] 01/15/2025 4:46 PM EDT 01/15/2025 4:49 PM EDT Generic External Data Provider LAB BLOOD ORDERAB LES Final Result Performing Organization Address [facility] de Phone Number [facility] [address] [place] [phone] * (ABNORMAL) Basic Metabolic Panel (01/15/2025 4:46 PM EDT) Only the most recent of2 resultswithin the time period is included. Sodium 140 135 - 145 mmol/L [facility] Potassium 4.0 3.3 - 5.1 mmol/L [facility] Chloride 104 96 - 108 mmol/L [facility] Carbon Dioxide 26 22 - 29 mmol/L [facility] Anion Gap 14 12 - 20 [facility] Urea Nitrogen (BUN) 21(H) 9 - 16 mg/dL [facility] Creatinine, Serum 1.16 0.5 - 1.4 mg/dL [facility] Creatinine Clr Calc Pharmacy 54.4 [facility] Comment:eGFR (calculated fro m the MDRD study equation) and eCrCl(calculated from the Cockcroft-Gault equation) are based ondifferent parameters and may not yield comparable results.If eCrCl result is absurd, please check patient'sheight/weight. Estimated Glomerular Filt Rate >60 [facility] Comment:Chronic Kidney Disea se: Estimated GFR < 60 mL/min/1.74f3Cffitj Kidney Disease: Estimated GFR < 15 mL/min/1.73m2 Glucose 100 60 - 115 mg/dL [facility] Calcium 9.5 8.4 - 10.2 mg/dL [facility] 01/15/2025 4:46 PM EDT 01/15/2025 4:49 PM EDT us Generic External Data Provider LAB BLOOD ORDERAB LES Final Result [facility] [address] [place] [phone] * XR Chest 1 View (01/14/2025 10:18 AM EDT) Only the most recent of4 resultswithin the time period is included. Anatomical Region Laterality Modality Chest Radiographic Betty ging 01/14/2025 10:1 8 AM EDT Narrative 01/14/2025 11:02 AM EDT ? [facility] ?[address] ?[place] [address] ?XRay Report ? Signed ? Patient: Olivares Victoria,Clemente ?MR#: ?? [id number] ? : 1960 ?Acct:[id number] ? Age/Sex: 64 / M ?ADM Date: 03/17/25 ? Loc: HO.S3 ?380-1 ? Attending : Corneliustayler Morales MD ? Ordering Physician: Leidy Cardoso PA-C ?? Date of Service: 01/14/25 ?? Procedure(s): XR chest 1V ?? Accession Number(s): [id number] ? cc: Katlyn Dominguez; Leidy Cardoso PA-C [...] ??Pan Mckeon MD ??01/14/2025 10:59 AM EDT ? Dictated By: ?Pan Mckeon MD ? Signed By: ?<Electronically signed by Pan Mckeon MD in OV> ?01/14/25 1059 ? DD/ 1018 ? TD/TT: 01/14/25 1021 ? Shoe Designer: ? Procedure Note Christen, Image - 01/14/[address] [address] XRay Report Signed Patient: Lauren Mathews#: [id number] : 9Acct:[id number] Age/Sex: 64 / MADM Date: 01/12/25 Loc: HO.S3 380-[address]: Cornelius Morales MD Ordering Physician: Leidy Cardsoo PA-C Date of Service: 01/14/25 Procedure(s): XR chest 1V Accession Number(s): [id number] cc: Katlyn Dominguez; Leidy Cardoso PA-C EXAMINATION: [...] 01/14/25 1059 DD/ 1018 TD/TT: 01/14/25 1021 Shoe Designer: [facility] External Provider IMG XR PROCEDURES Final Result * CT Chest Tube (01/12/2025 12:50 PM EDT) Anatomical Region Laterality Modality Computed Tomogra phy 01/12/2025 12:5 0 PM EDT Narrative 01/12/2025 5:46 PM EDT ? [facility] ?[address] ?[place] [address] ? CT Scan Report ? Signed ? Patient: Marshall Sladea,Clemente ?MR#: ?? [id number] ? : 1960 ?Acct:[id number] ? Age/Sex: 64 / M ?ADM Date: 01/12/25 ? Loc: HO.S3 ?380-1 ? Attending Dr: Cornelius Morales MD ? Ordering Physician: Jeremie Pace MD ?? Date of Service: 01/12/25 ?? Procedure(s): CT chest tube placement ?? Accession Number(s): [id number] ? cc: Katlyn Dominguez; Jeremie Pace MD ? Report Number: ?? [id number]: Total DLP = ??155.00 mGy-cm ?? PROCEDURE: [...] is small skin incision a ?? 4 Egyptian Yueh catheter was advanced into the left anterior ?? pneumothorax. The stylet was withdrawn and 0.035 J-wire was advanced ?? and placed in the pleural space and Yueh catheter was withdrawn. 6 ?? Egyptian APD catheter over a stiffener was advanced [...] post biopsy. ? Under CT fluoroscopy 6 Egyptian APD catheter was left in the left upper ?? hemithorax without immediate complications. Patient was admitted to the ?? hospital and watched overnight. ??. ? Electronically signed by: ??Jeremie Katelynn MD ??01/12/2025 05:43 PM EDT RP ? Dictated By: ?Katelynn,Jeremie S MD ? Signed By: ?<Electronically signed by Ejremie S Katelynn, MD in OV> ?01/12/25 1743 ? DD/ 1250 ? TD/TT: 01/12/25 1330 ? Shoe Designer: MSM ? Procedure Note Christen, Image - 01/12/[address] [address] [address] Scan Report Signed Patient: Lauren Mathews#: [id number] : 9Acct:[id number] Age/Sex: 64 / MADM Date: 01/12/25 Loc: .S3 380-[address]: Cornelius Morales MD Ordering Physician: Jeremie Pace MD Date of Service: 01/12/25 Procedure(s): CT chest tube placement Accession Number(s): [id number] cc: Katlyn Dominguez; Jeremie Pace MD Report Number: [id number]: Total DLP = 155.00 mGy-cm PROCEDURE: CT-GUIDED [...] There is small skin incision a 4 Egyptian Yueh catheter was advanced into the left anterior pneumothorax. The stylet was withdrawn and 0.035 J-wire was advanced and placed in the pleural space and Yueh catheter was withdrawn. 6 Egyptian APD catheter over a stiffener was advanced [...] pneumothorax post biopsy. Under CT fluoroscopy 6 Egyptian APD catheter was left in the left upper hemithorax without immediate complications. Patient was admitted to the hospital and watched overnight. . Electronically signed by: Jeremie Pace MD 01/12/2025 05:43 PM EDT RP Dictated By: Jeremie Pace MD Signed By: <Electronically signed by Jeremie Pace MD in OV> 01/12/25 1743 DD/ 1250 TD/TT: 01/12/25 1330 Shoe Designer: LOREN [facility] External Provider IMG CT PROCEDURES Final Result * CT Biopsy Lung Left (01/12/2025 10:50 AM EDT) Anatomical Region Laterality Modality Computed Tomogra phy 01/12/2025 10:5 0 AM EDT Narrative 01/13/2025 4:12 PM EDT ? [facility] ?[address] ?[place] [address] ? CT Scan Report ? Signed ? Patient: Clemente Mathews ?MR#: ?? [id number] ? : 1960 ?Acct:[id number] ? Age/Sex: 64 / M ?ADM Date: 01/12/25 ? Loc: HO.S3 ?380-1 ? Attending Dr: Cornelius Morales MD ? Ordering Physician: Jcarlos Pimentel MD ?? Date of Service: 01/12/25 ?? Procedure(s): CT biopsy lung LT ?? Accession Number(s): [id number] ? cc: Katlyn Dominguez; Jcarlos Pimentel MD ? Report Number: ?? [id number]: Total DLP = ??796.00 mGy-cm ?? PROCEDURE: [...] assess pneumothorax. ? Electronically signed by: ??Jeremie Katelynn MD ??01/13/2025 04:09 PM EDT RP ? Dictated By: ?Katelynn,Jeremie S MD ? Signed By: ?<Electronically signed by Jeremie S Katelynn, MD in OV> ?01/13/25 1609 ? DD/ 1050 ? TD/TT: 01/12/25 1130 ? Shoe Designer: MSM ? Procedure Note Christen, Image - 01/13/[address] [address] [address] Scan Report Signed Patient: Lauren Mathews#: [id number] : 9Acct:[id number] Age/Sex: 64 / MADM Date: 01/12/25 Loc: .S3 380-[address]: Corneluis Morales MD Ordering Physician: Jcarlos Pimentel MD Date of Service: 01/12/25 Procedure(s): CT biopsy lung LT Accession Number(s): [id number] cc: Katlyn Dominguez; Jcarlos Pimentel MD Report Number: [id number]: Total DLP = 796.00 mGy-cm PROCEDURE: CT [...] 01/13/25 1609 DD/ 1050 TD/TT: 01/12/25 1130 Shoe Designer: LOREN [facility] External Provider IMG CT PROCEDURES Final Result * Partial Thromboplastin Time, Activated (APTT) (01/12/2025 9:57 AM EDT) Partial Thromboplastin Time 28.1 26.0 - 36.8 SEC [facility] Comment:For information rega rding the monitoring of direct thrombininhibitors, please refer to Pharmacy. 01/12/2025 9:57 AM EDT 01/12/2025 10:10 AM EDT Generic External Data Provider LAB BLOOD ORDERAB LES Final Result Performing Organization Address City/State/[facility] Co de Phone Number [facility] [address] [place] [phone] * Prothrombin Time-INR (01/12/2025 9:57 AM EDT) Prothrombin Time 11.0 10.9 - 12.4 SEC [facility] INTERNATIONAL NORM RATIO 0.9 0.9 - 1.1 [facility] Comment:INTERNATIONAL NORMAL IZED RATIO (INR) [...] ORDERAB LES Final Result Performing Organization Address [facility]/ZIP Co de Phone Number [facility] [address] [place] [phone] * (ABNORMAL) Lipid Panel, Standard (09/18/2024 9:05 AM EST) Triglycerides 136 <150 mg/dL [facility] Comment:Desirable Triglyceri de: less than 150 mg/dLBorderline High Triglyceride 150-199 mg/dLHigh Triglyceride: 200-499 mg/dLVery High Triglyceride: greater than or equal to 5OO mg/dL Cholesterol 204(H) <200 mg/dL [facility] Comment:Desirable Cholestero l: less than 200 mg/dLBorderline High Cholesterol: 200-239 mg/dLHigh Cholesterol: greater than 239 mg/dL LDL Cholesterol Calculated 128(H) <100 mg/dL [facility] Comment:Desirable LDL: less than 100 mg/dLNear Optimal/Above Optimal LDL: 110- 129 mg/dLBorderline High LDL: 130-159 mg/dLHigh LDL: 160-189 mg/dLVery High LDL: greater than or equal to 190 mg/dL HDL Cholesterol 49 >40 mg/dL [facility] Comment:Desirable HDL: great er than 40 mg/dL Note: This HDL assay may give artificially low results in patients with liver disease. Blood Venous blood specimen / Unknown 09/18/2024 9:05 AM EST 09/18/2024 11:09 AM EST us Katlyn Dominguez MD LAB BLOOD ORDERABLES Final Res ult Performing Organization Address City/[facility]/ZIP Co de Phone Number [facility] [address] [place] [address] [phone] from Last 3 Months or Most Recently Relevant to Health Maintenance Insurance [place] [id number] [facility] FULL Care Teams Accuracy Expert Relationship Specialty Start Date End Date Katlyn Dominguez MD [address] [place] [id number] PCP - General Family Medicine 12/14/20
--- OUTSIDE RECORDS SUMMARY | 2025-03-02 15:58 | XMS_ITS | Encounter Summary ---
Author Organization [employer] Address [address] [facility] [address] [place] [address] Care Team Providers Care Tractor Operator Name Role Phone Katlyn Dominguez MD Primary Care Provider [phone] Encounter Details Date Type Department Care Team ([facility] st Contact Info) Description 01/23/2023 Orders Only [facility] MED & PEDS [address] [place] [address] Phyllis Vázquez LPN Social History Tobacco Use [...] on filedocumented in this encounter Care Teams Tractor Operator Relationship Specialty Start Date End Date Katlyn Dominguez MD [address] [place] [address] PCP - General Family Medicine 12/14/20 documented as of this encounter
== END 2025-03-02 14:45 | disposition home or self-care (01) ==
LOC: HO.HGS 14:26
PROVIDERS: PCP General Practice; Visit Provider Surgery
DX: R91.1 Solitary pulmonary nodule (principal)
CPT/HCPCS: 99213

== ENCOUNTER → 2025-03-02 14:26 | Outpatient (BNVA) | payer MEDICARE, SELFPAY | PROVIDERS: PCP General Practice; Visit Provider Surgery | DX: R91.1 Solitary pulmonary nodule (principal) | CPT/HCPCS: 99212 ==

== ENCOUNTER 2025-03-17 12:38 | Outpatient (AMB) | payer MEDICARE, SELFPAY ==
--- NOTE | 2025-03-17 13:09 | A.OFFVIS_ITS ---
Vital Signs 03/17/25 13:10 Height 5 ft 5 in Weight 160 lb 14.999 oz BMI 26.8 BP 149/95 H Blood Pressure Location Lt brachial Position Sitting Pulse 64 Intake Visit Reasons: Colonoscopy Screening Intake Note: Clemente presents in the office as a colonoscopy screening. CC: States he has a lung surgery next week at [facility] - no GI concerns at this time. Wood Products Manufacturer Required: No Allergies No Known Allergies Allergy (Verified 03/17/25 13:14) HPI HPI Colonoscopy Screening: Details: 64-year-old male here for preprocedural meeting to discuss a screening colonoscopy. He is referred by [facility]. PMX COPD Coronary artery calcification Smoker Hypertension Diabetes Depression Homelessness * SURGICAL HISTORY Colonoscopy-[facility], 2010= negative study Right biceps tendon repair L4-L5 microdiscectomy ingrown toenail * ALLERGIES : NKDA * [facility]: Laboratory Tests 01/15/25 16:46 WBC 9.3 Hgb 15.6 Hct 46.7 Plt Count 193 Estimated GFR > 60 Magnesium 2.2 Total Bilirubin 0.5 Direct Bilirubin 0.2 AST 24 ALT 27 Alkaline Phosphatase 70 TODAY'S VISIT He will be having a procedure the end of this month to investigate a lung nodule, they tried to do it here but he ended up having a pneuomothorax r/t the attempt. So he was referred to Dr. Swain at [place] - we should likely get clearance from him first. The pt denies SOB, just cough with intermittent pain with the cough and a great deal of am phlem. He denies any cardiac problems. No anes or sed problems. No ID problems. No FHX known of CRC or polyps. [facility] Medical History COPD (chronic obstructive pulmonary disease) Coronary artery calcification seen on CAT scan History of diabetes mellitus, type II Nicotine dependence, cigarettes, uncomplicated Hypertension Surgical History Pulmonary nodules History of colonoscopy History of shoulder surgery History of lumbar surgery Social History Household Members: Significant Other Housing: House Are you a primary medicare compliance auditor to a significant other at home: No Do you presently have visiting nurse or other home services: No Alcohol intake: never Patient Tobacco Use Status: Current everyday Tobacco user Tobacco use type: Cigarette Cigarettes Per Day: 6 Years Smoked: onset 9yo, 1ppd x 53yrs, 50pyh Second Hand Smoke Exposure: Yes Substance Use Type: Marijuana service: No Current occupational status: disabled Review of Systems Const Denies fatigue, Denies fever(s), Denies night sweats, Denies poor appetite and Denies weight loss Eyes Reports requires corrective lenses ENT Reports Normal hearing present, Denies dental pain, Denies dysphagia, Denies hearing loss, Denies mouth pain, Denies odynophagia, Denies throat swelling, Denies tongue swelling and Reports other (Dentition adequate) GI Details: Denies abdominal pain, Denies melena, Denies bloating, Denies hematochezia, Denies constipation, Denies GI cramping, Denies dysphagia, Denies excessive flatus, Denies early satiety, Denies heartburn, Denies diarrhea, Denies nausea, Denies odynophagia, Denies vomiting and Denies hematemesis Skin/Breast Denies pruritus, Denies lesions, Denies rash and Denies jaundice Neuro Reports Normal hearing present and Denies Abnormal speech present Endo Denies fatigue Aller/Immun Denies throat swelling and Denies tongue swelling Physical Exam Vital Signs: Last Vital Signs Pulse 64 03/17/25 13:10 BP 149/95 H 03/17/25 13:10 BMI result Body Mass Index 26.8 Const General: cooperative, no acute distress, well developed and well groomed Nutritional Appearance: average body habitus and well nourished Orientation/consciousness: oriented to person, oriented to place and oriented to time Limitations: No language barrier HEENT Head: Yes normocephalic and Yes atraumatic Eyes General: appearance normal, both eyes and all related structures Pupils: Equal, round and reactive pupils present Neck Neck: Yes normal visual inspection and Yes no lymphadenopathy Thyroid: Thyroid normal Resp Effort & Inspection: normal respiratory effort and able to speak in complete sentences Auscultation: clear to auscultation bilaterally Cardio Rate: regular rate Rhythm: regular rhythm Heart sounds: Normal, physiologic split S2 sound present Peripheral pulses: radial pulses present and posterior tibial pulses present GI Inspection: No distended and No Abdominal panniculus present Palpation (GI): Soft to palpation, nontender, no guarding, not rigid and No hepatosplenomegaly present Percussion: Yes normal to percussion Auscultation: normal bowel sounds Rectal Exam - Male: Yes deferred Skin General skin exam: no rashes or lesions noted, turgor normal, skin not dry, no jaundice, No spider nevi and no striae Rashes: no rashes Nails: normal Neuro General: oriented to person, oriented to place and oriented to time Cranial nerves: Yes Equal, round and reactive pupils present and Yes Normal hearing present Speech: No Abnormal speech present Extrem General: Yes normal to inspection, No clubbing, No cyanosis and No edema Psych Appearance: grossly normal and well kempt Mental Status: mental status grossly normal Speech and movement: Normal speech and movement present Affect: normal affect Attitude: cooperative Thought process: Normal thought process present and not confabulating Thought content: Normal thought content present Insight: Fair insight present (Psych) Judgement: Fair judgement present (Psych) Assessment & Plan Assessment & Plan (1) Pre-op examination: Code(s): Z01.818 - Encounter for other preprocedural examination Category: Medical (2) Nicotine dependence, cigarettes, uncomplicated: Comment: (current smoker, onset 9yo, 1ppd x 53yrs, 50pyh) Code(s): F17.210 - Nicotine dependence, cigarettes, uncomplicated Category: Medical (3) COPD (chronic obstructive pulmonary disease): Code(s): J44.9 - Chronic obstructive pulmonary disease, unspecified Category: Medical Plan He will be having a procedure the end of this month to investigate a lung nodule, they tried to do it here but he ended up having a pneunomothorax r/t the attempt. So he was referred to Dr. Swain at [place] - we should likely get clearance from him first. The pt denies SOB, just cough with intermittent pain with the cough and a great deal of am phlem. He denies any cardiac problems. No anes or sed problems. No ID problems. No FHX known of CRC or polyps. Orders: Orders Colonoscopy - GI Use Only Today Z01.818 - Encounter for other preprocedural examination Medications: New peg 3350-electrolytes 236-22.74-6.74 -5.86 gram (Golytely) until fecal effluent is clear; do not exceed a total volume of 2,000 mL 240 mL PO Q10M 1 day 4,000 mL 0RF Z12.11 - Encounter for screening for malignant neoplasm of colon bisacodyl (Dulcolax (bisacodyl)) 10 mg (2 x 5 mg) PO BEDTIME 2 days 4 tabs 0RF Discontinued lidocaine 5% leave on most painful area for up to 12 hrs Discontinued Reason: Patient no longer taking 1 patch topical DAILY 30 ea 0RF Coding Level of Care Code New Pt Level 3 (35075) Diagnoses Pre-op examination Z01.818 Nicotine dependence, cigarettes, uncomplicated F17.210 COPD (chronic obstructive pulmonary disease) J44.9
[2025-03-17 13:10] VITALS: BP 149/95; PULSE 64; BMI 26.8
--- OUTSIDE RECORDS SUMMARY | 2025-03-17 13:43 | XMS_ITS | Encounter Summary ---
Author Organization [employer] Address [address] [facility] [address] [place] [address] Care Team Providers Care Community Advocate Name Role Phone Katlyn Dominguez MD Primary Care Provider [phone] Reason for Visit * Reason Comments Med Refill Encounter Details Date Type Department Care Team ([facility] st Contact Info) Description 05/30/2024 Refill [facility] [address] [place], [place] [phone] Katlyn Dominguez MD [address] [place], [place] [phone] Social History Tobacco Use Types Packs/Day Years [...] on filedocumented in this encounter Care Teams Community Advocate Relationship Specialty Start Date End Date Katlyn Dominguez MD [address] [place] [address] PCP - General Family Medicine 12/14/20 documented as of this encounter
--- OUTSIDE RECORDS SUMMARY | 2025-03-17 13:43 | XMS_ITS | Encounter Summary ---
Author Organization [employer] Address [address] [facility] [address] [place] [address] Care Team Providers Care Order Builder Name Role Phone Katlyn Dominguez MD Primary Care Provider Encounter Details Date Type Department Care Team (Late st Contact Info) Description 01/23/2023 Orders Only [facility] CH[facility] MED & PEDS [address] [place] [address] Phyllis Vázquez LPN Social History Tobacco Use [...] on filedocumented in this encounter Care Teams Order Builder Relationship Specialty Start Date End Date Katlyn Dominguez MD [address] [place] [address] PCP - General Family Medicine 12/14/20 documented as of this encounter
--- OUTSIDE RECORDS SUMMARY | 2025-03-17 13:44 | XMS_ITS | Encounter Summary ---
Author Organization [employer] Address [address] [facility] [address] [place] [address] Care Team Providers Care Sales Forecast Analyst Name Role Phone Katlyn Dominguez MD Primary Care Provider [phone] Encounter Details Date Type Department Care Team (Late st Contact Info) Description 10/24/2024 Orders Only [facility] [address] [place], [place] [phone] Katlyn Dominguez MD [address] [place] [address] Social History Tobacco Use Types Packs/Day Years [...] documented as of this encounter Care Teams Sales Forecast Analyst Relationship Specialty Start Date End Date Katlyn Dominguez MD [address] [place] [phone] PCP - General Family Medicine 12/14/20 documented as of this encounter
--- OUTSIDE RECORDS SUMMARY | 2025-03-17 13:44 | XMS_ITS | Clinical Summary ---
Author Organization [employer] Address [address] [facility] [address] [place] [address] Care Team Providers Care Coffee Shop Attendant Name Role Phone Katlyn Dominguez MD Primary Care Provider [phone] Allergies No known active allergies Medications terbinafine [...] Plan (11/26/2023 10:38 AM EST): Referral to [facility] Annual physical exam 05/23/2023 Assessment & [...] Department Care Team Description 02/10/2025 Orders Only [facility] External Provider, [facility] 01/15/2025 Orders Only GENERIC EXTERNAL DATA DEPARTMENT Provider, Generic External Data 01/12/2025 Orders Only GENERIC EXTERNAL DATA DEPARTMENT Provider, Generic External Data from Last 3 Months Immunizations Immunization Administration Dates Next Due Hep B, adult [...] patient's age to complete this topic Meningococcal B Vaccine Aged Out No l onger eligible based on patient's age to complete [...] EDT Narrative 02/12/2025 1:51 PM EDT ? [facility] ?[address] ?[place] [address] ? PET Report ? Signed ? Patient: Olivares Victoria,Clemente ?MR#: ?? [id number] ? : 1960 ?Acct:[id number] ? Age/Sex: 64 / M ?ADM Date: 04/15/25 ? Loc: HO.PET ? Attending Dr: Joel Kirk MD ? Ordering Physician: Joel Kirk MD ?? Date of Service: 02/10/25 ?? Procedure(s): PET CT fusion skull to thigh ?? Accession Number(s): [id number] ? cc: Katlyn Dominguez; Joel Kirk MD [...] DD/ 1345 ? TD/TT: 02/10/25 1555 ? Justice Professor: MSM ? Procedure Note Christen, Michell - 02/12/[address] [address] PET Report Signed Patient: Lauren Mathews#: [id number] : 9Acct:[id number] Age/Sex: 64 / MADM Date: 02/10/25 Loc: HO.PET Attending Dr: Joel Kirk MD Ordering Physician: Joel Kirk MD Date of Service: 02/10/25 Procedure(s): PET CT fusion skull to thigh Accession Number(s): [id number] cc: Valeriano Dominguez Pasquale MD EXAMINATION: FLUORINE-18 FDG PET/CT SCAN CLINICAL [...] OV> 02/12/25 1348 DD/ 1345 TD/TT: 02/10/25 1555 Justice Professor: LOREN [facility] External Provider IMG CT PROCEDURES Final Result * XR Ribs 2 Views Right (01/15/2025 5:13 PM EDT) Anatomical Region Laterality Modality Rib, Abdomen Right Radiographic Betty ging 01/15/2025 5:13 PM EDT Narrative 01/15/2025 5:14 PM EDT ? [facility] ?[address] ?[place] [address] ?XRay Report ? Signed ? Patient: Olivares Victoria,Clemente ?MR#: ?? [id number] ? : 1960 ?Acct:[id number] ? Age/Sex: 64 / M ?ADM Date: 01/15/25 ? Loc: HO.ED ? Attending Dr: ? Ordering Physician: Ana Schilling ?? Date of Service: 01/15/25 ?? Procedure(s): XR ribs RT 2V ?? Accession Number(s): [id number] ? cc: Katlyn Dominguez; Ana Schilling PA ? CLINICAL HISTORY: pain ? 3 view right ribs ? Comparison: CR - XR CHEST 2 - 01/15/25 16:20 EDT ? Findings: ?? Bones intact. No dislocations. ?? The visualized lungs are normal. ? IMPRESSION: ?? 1. No acute findings ? This document has been electronically signed by: Belem Trujillo MD on ?? 01/15/2025 17:13:19 ? Dictated By: ?Belem Trujillo MD ? Signed By: ?<Electronically signed by Belem Trujillo MD in OV> ? 01/15/25 1714 ? DD/ ? TD/TT: 01/15/25 1713 ? Justice Professor: ? Procedure Note Christen, Image - 01/15/[address] [address] XRay Report Signed Patient: Lauren Mathews#: [id number] : 9Acct:[id number] Age/Sex: 64 / MADM Date: 01/15/25 Loc: HO.ED Attending Dr: Ordering Physician: Ana Schilling Date of Service: 01/15/25 Procedure(s): XR ribs RT 2V Accession Number(s): [id number] cc: Katlyn Dominguez; Ana Schilling CLINICAL HISTORY: [...] in OV> 01/15/251713 DD/ 12 TD/TT: 01/15/251712 Justice Professor: [facility] External Provider IMG XR PROCEDURES Final Result * XR Chest 2 Views (01/15/2025 5:13 PM EDT) Anatomical Region Laterality Modality Chest Radiographic Betty ging 01/15/2025 5:13 PM EDT Narrative 01/15/2025 5:15 PM EDT ? [facility] ?[address] ?[place] [address] ?XRay Report ? Signed ? Patient: Olivares Victoria,Clemente ?MR#: ?? [id number] ? : 1960 ?Acct:[id number] ? Age/Sex: 64 / M ?ADM Date: 01/15/25 ? Loc: HO.ED ? Attending Dr: ? Ordering Physician: Ana Schilling ?? Date of Service: 01/15/25 ?? Procedure(s): XR chest 2V ?? Accession Number(s): [id number] ? cc: Katlyn Dominguez; Ana Schilling ? CLINICAL HISTORY: R sided chest pain ? 2 view chest x-ray ? Comparison: CR/NY/SR - XR CHEST 1V - 01/14/25 10:19 EDT ? Findings: ?? Mild linear opacities within the right lower lung. No consolidation or ?? pleural effusion. No pneumothorax. ?? Normal heart size. Tortuous aorta. ?? No acute fracture. ? IMPRESSION: ?? Mild linear atelectasis or scarring within the right lower lung. ? This document has been electronically signed by: Belem rTujillo MD on ?? 01/15/2025 17:13:36 ? Dictated By: ?Belem Trujillo MD ? Signed By: ?<Electronically signed by Belem Trujillo MD in OV> ? 01/15/25 1715 ? DD/ 1713 ? TD/TT: 01/15/25 1713 ? Justice Professor: ? Procedure Note Christen, Image - 01/15/2025 [place] [address] XRay Report Signed Patient: Lauren Mathews#: [id number] : 9Acct:[id number] Age/Sex: 64 / MADM Date: 01/15/25 Loc: HO.ED Attending Dr: Ordering Physician: Ana Schilling Date of Service: 01/15/25 Procedure(s): XR chest 2V Accession Number(s): [id number] cc: Katlyn Dominguez; Ana Schilling CLINICAL HISTORY: R sided chest pain 2 view chest x-ray Comparison: CR/[place]/SR - XR CHEST 1V - 01/14/25 10:19 [...] in OV> 01/15/251714 DD/ 12 TD/TT: 01/15/251712 Justice Professor: us [facility] External Provider IMG XR PROCEDURES Final Result * (ABNORMAL) CBC auto differential (01/15/2025 4:46 PM EDT) Only the most recent of2 resultswithin the time period is included. White Blood Count 9.3 4.8 - 10.8 X10*3/uL [facility] Red Blood Count 5.25 4.60 - 5.80 X10*6/uL [facility] Hemoglobin 15.6 14.0 - 18.0 g/dl [facility] Hematocrit 46.7 42.0 - 52.0 % [facility] Mean Corpuscular Volume 89.0 80.0 - 98.0 fL [facility] Mean Corpuscular Hemoglobin 29.7 27.0 - 33.0 pg [facility] Mean Corpuscular HGB Conc 33.4 31.0 - 36.0 g/dl [facility] Red Cell Distribution Width 13.1 11.0 - 16.0 % [facility] Platelet Count 193 160 - 400 X10*3/uL [facility] Mean Platelet Volume 10.8 9.4 - 12.4 fL [facility] Neutrophils Percent Auto 59.8 45 - 73 % [facility] Imm Gran Pct Auto 0.4 0.0 - 0.4 % [facility] Lymphocytes Percent Auto 28.4 20 - 40 % [facility] Monocytes Percent Auto 9.0 2 - 11 % [facility] Eosinophils Percent Auto 1.8 0 - 4 % [facility] Basophils Percent Auto 0.6 0 - 2 % [facility] NRBC Pct Auto 0.0 0.0 - 0.2 /100WBC [facility] Neutrophils Absolute Auto 5.5 2.0 - 8.3 x10*3/uL [facility] Imm Gran Abs Auto 0.04(H) 0.00 - 0.03 X10*3/uL [facility] Lymphocytes Absolute Auto 2.6 1.2 - 4.9 X10*3/uL [facility] Monocytes Absolute Auto 0.8 0.1 - 1.2 X10*3/uL [facility] Eosinophils Absolute Auto 0.2 0.0 - 0.4 X10*3/uL [facility] Basophils Absolute Auto 0.1 0.0 - 0.2 X10*3/uL [facility] NRBC Abs Auto 0.000 0.0 - 0.012 X10*3/uL [facility] 01/15/2025 4:46 PM EDT 01/15/2025 4:49 PM EDT Generic External Data Provider LAB BLOOD ORDERAB LES Final Result Performing Organization Address City/[facility]/ZIP Co de Phone Number [facility] [address] [place] [phone] * Magnesium (01/15/2025 4:46 PM EDT) Magnesium 2.2 1.6 - 2.6 mg/dL [facility] 01/15/2025 4:46 PM EDT 01/15/2025 4:49 PM EDT Generic External Data Provider LAB BLOOD ORDERAB LES Final Result Performing Organization Address City/[facility]/ZIP Co de Phone Number [facility] [address] [place] [phone] * Lipase (01/15/2025 4:46 PM EDT) Lipase 28 8 - 78 U/L [facility] 01/15/2025 4:46 PM EDT 01/15/2025 4:49 PM EDT us Generic External Data Provider LAB BLOOD ORDERAB LES Final Result Performing Organization Address [facility] Co de Phone Number [facility] [address] [place] [phone] * Hepatic Function Panel (01/15/2025 4:46 PM EDT) Bilirubin, Total 0.5 0.0 - 1.0 mg/dL [facility] Bilirubin, Direct 0.2 0.0 - 0.5 mg/dL [facility] Aspartate Amino Transferase 24 5 - 37 U/L [facility] Alanine Aminotransferase 27 0 - 40 U/L [facility] Total Protein 7.9 6.5 - 8.0 g/dL [facility] Albumin Level 4.4 3.5 - 5.0 g/dL [facility] Alkaline Phosphatase 70 39 - 117 U/L [facility] 01/15/2025 4:46 PM EDT 01/15/2025 4:49 PM EDT us Generic External Data Provider LAB BLOOD ORDERAB LES Final Result Performing Organization Address [facility] de Phone Number [facility] [address] [place] [phone] * (ABNORMAL) Basic Metabolic Panel (01/15/2025 4:46 PM EDT) Only the most recent of2 resultswithin the time period is included. Sodium 140 135 - 145 mmol/L [facility] Potassium 4.0 3.3 - 5.1 mmol/L [facility] Chloride 104 96 - 108 mmol/L [facility] Carbon Dioxide 26 22 - 29 mmol/L [facility] Anion Gap 14 12 - 20 [facility] Urea Nitrogen (BUN) 21(H) 9 - 16 mg/dL [facility] Creatinine, Serum 1.16 0.5 - 1.4 mg/dL [facility] Creatinine Clr Calc Pharmacy 54.4 [facility] Comment:eGFR (calculated fro m the MDRD study equation) and eCrCl(calculated from the Cockcroft-Gault equation) are based ondifferent parameters and may not yield comparable results.If eCrCl result is absurd, please check patient'sheight/weight. Estimated Glomerular Filt Rate >60 [facility] Comment:Chronic Kidney Disea se: Estimated GFR < 60 mL/min/1.81x1Hrxvnb Kidney Disease: Estimated GFR < 15 mL/min/1.73m2 Glucose 100 60 - 115 mg/dL [facility] Calcium 9.5 8.4 - 10.2 mg/dL [facility] 01/15/2025 4:46 PM EDT 01/15/2025 4:49 PM EDT us Generic External Data Provider LAB BLOOD ORDERAB LES Final Result [facility] [address] [place] [phone] * XR Chest 1 View (01/14/2025 10:18 AM EDT) Only the most recent of4 resultswithin the time period is included. Anatomical Region Laterality Modality Chest Radiographic Betty ging 01/14/2025 10:1 8 AM EDT Narrative 01/14/2025 11:02 AM EDT ? [facility] ?[address] ?[place] [address] ?XRay Report ? Signed ? Patient: Olivares Victoria,Clemente ?MR#: ?? [id number] ? : 1960 ?Acct:[id number] ? Age/Sex: 64 / M ?ADM Date: 03/17/25 ? Loc: HO.S3 ?380-1 ? Attending Dr: Cornelius Morales MD ? Ordering Physician: Leidy Cardoso PA-C ?? Date of Service: 01/14/25 ?? Procedure(s): XR chest 1V ?? Accession Number(s): [id number] ? cc: Katlyn Dominguez; Leidy Cardoso PA-C [...] DD/ 1018 ? TD/TT: 01/14/25 1021 ? Justice Professor: ? Procedure Note Christen, Image - 01/14/2025 [place] [address] XRay Report Signed Patient: Lauren Mathews#: [id number] : 9Acct:[id number] Age/Sex: 64 / MADM Date: 01/12/25 Loc: .S3 380-[address]: Cornelius Morales MD Ordering Physician: Leidy Cardoso PA-C Date of Service: 01/14/25 Procedure(s): XR chest 1V Accession Number(s): [id number] cc: Katlyn Dominguez; Leidy Cardoso PA-C EXAMINATION: [...] 01/14/25 1059 DD/ 1018 TD/TT: 01/14/25 1021 Justice Professor: [facility] External Provider IMG XR PROCEDURES Final Result * CT Chest Tube (01/12/2025 12:50 PM EDT) Anatomical Region Laterality Modality Computed Tomogra phy 01/12/2025 12:5 0 PM EDT Narrative 01/12/2025 5:46 PM EDT ? [facility] ?[address] ?[place] [address] ? CT Scan Report ? Signed ? Patient: Clemente Mathews ?MR#: ?? [id number] ? : 1960 ?Acct:[id number] ? Age/Sex: 64 / M ?ADM Date: 01/12/25 ? Loc: HO.S3 ?380-1 ? Attending Dr: Cornelius Morales MD ? Ordering Physician: Jeremie Pace MD ?? Date of Service: 01/12/25 ?? Procedure(s): CT chest tube placement ?? Accession Number(s): [id number] ? cc: Katlyn Dominguez; Jeremie Pace MD ? Report Number: ?? [id number]: Total DLP = ??155.00 mGy-cm ?? PROCEDURE: [...] is small skin incision a ?? 4 Singaporean Yueh catheter was advanced into the left anterior ?? pneumothorax. The stylet was withdrawn and 0.035 J-wire was advanced ?? and placed in the pleural space and Yueh catheter was withdrawn. 6 ?? Singaporean APD catheter over a stiffener was advanced [...] post biopsy. ? Under CT fluoroscopy 6 Singaporean APD catheter was left in the left upper ?? hemithorax without immediate complications. Patient was admitted to the ?? hospital and watched overnight. ??. ? Electronically signed by: ??Jeremie Katelynn MD ??01/12/2025 05:43 PM EDT RP ? Dictated By: ?Katelynn,Jeremie S MD ? Signed By: ?<Electronically signed by Jeremie S Katelynn, MD in OV> ?01/12/25 1743 ? DD/ 1250 ? TD/TT: 01/12/25 1330 ? Justice Professor: MSM ? Procedure Note Donotuseinterpreter, Image - 01/12/[address] [address] [address] Scan Report Signed Patient: Lauren Mathews#: [id number] : 9Acct:[id number] Age/Sex: 64 / MADM Date: 01/12/25 Loc: [facility] 380-[address]: Cornelius Morales MD Ordering Physician: Jeremie Pace MD Date of Service: 01/12/25 Procedure(s): CT chest tube placement Accession Number(s): [id number] cc: Katlyn Dominguez; Jeremie Pace MD Report Number: [id number]: Total DLP = 155.00 mGy-cm PROCEDURE: CT-GUIDED [...] There is small skin incision a 4 Singaporean Yueh catheter was advanced into the left anterior pneumothorax. The stylet was withdrawn and 0.035 J-wire was advanced and placed in the pleural space and Yueh catheter was withdrawn. 6 Singaporean APD catheter over a stiffener was advanced [...] pneumothorax post biopsy. Under CT fluoroscopy 6 Singaporean APD catheter was left in the left upper hemithorax without immediate complications. Patient was admitted to the hospital and watched overnight. . Electronically signed by: Jeremie Pace MD 01/12/2025 05:43 PM EDT RP Dictated By: Jeremie Pace MD Signed By: <Electronically signed by Jeremie Pace MD in OV> 01/12/25 1743 DD/ 1250 TD/TT: 01/12/25 1330 Justice Professor: LOR[facility] External Provider IMG CT PROCEDURES Final Result * CT Biopsy Lung Left (01/12/2025 10:50 AM EDT) Anatomical Region Laterality Modality Computed Tomogra phy 01/12/2025 10:5 0 AM EDT Narrative 01/13/2025 4:12 PM EDT ? [facility] ?[address] ?[place] [address] ? CT Scan Report ? Signed ? Patient: Marshall Victoria,Clemente ?MR#: ?? [id number] ? : 1960 ?Acct:[id number] ? Age/Sex: 64 / M ?ADM Date: 01/12/25 ? Loc: HO.S3 ?380-1 ? Attending : Cornelius Morales MD ? Ordering Physician: Jcarlos Pimentel MD ?? Date of Service: 01/12/25 ?? Procedure(s): CT biopsy lung LT ?? Accession Number(s): [id number] ? cc: Katlyn Dominguez; Jcarlos Pimentel MD ? Report Number: ?? [id number]: Total DLP = ??796.00 mGy-cm ?? PROCEDURE: [...] Signed By: ?<Electronically signed by Jeremie S MD Katelynn in OV> ?01/13/25 1609 ? DD/DT: 01/12/ 1050 ? TD/TT: 01/12/ 1130 ? Justice Professor: MSM ? Procedure Note Donotuseinterpreter, Image - 01/13/[address] [address] [address] Scan Report Signed Patient: Lauren Mathews#: [id number] : 9Acct:[id number] Age/Sex: 64 / MADM Date: 01/12/25 Loc: [facility] 380-[address]: Cornelius Morales MD Ordering Physician: Jcarlos Pimentel MD Date of Service: 01/12/25 Procedure(s): CT biopsy lung LT Accession Number(s): [id number] cc: Katlyn Dominguez; Jcarlos Pimentel MD Report Number: [id number]: Total DLP = 796.00 mGy-cm PROCEDURE: CT [...] Jeremie Pace MD 01/13/2025 04:09 PM EDT Dictated By: Jeremie Pace MD Signed By: <Electronically signed by Jeremie Pace MD in OV> 01/13/25 1609 DD/ 1050 TD/TT: 01/12/25 1130 Justice Professor: LOR[facility] External Provider IMG CT PROCEDURES Final Result * Partial Thromboplastin Time, Activated (APTT) (01/12/2025 9:57 AM EDT) Partial Thromboplastin Time 28.1 26.0 - 36.8 SEC [facility] Comment:For information rega rding the monitoring of direct thrombininhibitors, please refer to Pharmacy. 01/12/2025 9:57 AM EDT 01/12/2025 10:10 AM EDT Generic External Data Provider LAB BLOOD ORDERAB LES Final Result [facility] [address] [place] [phone] * Prothrombin Time-INR (01/12/2025 9:57 AM EDT) Prothrombin Time 11.0 10.9 - 12.4 [facility] INTERNATIONAL NORM RATIO 0.9 0.9 - 1.1 [facility] Comment:INTERNATIONAL NORMAL IZED RATIO (INR) [...] ORDERAB LES Final Result Performing Organization Address [facility] Co de Phone Number [facility] [address] [place] [phone] * (ABNORMAL) Lipid Panel, Standard (09/18/2024 9:05 AM EST) Triglycerides 136 <150 mg/dL [facility] Comment:Desirable Triglyceri de: less than 150 mg/dLBorderline High Triglyceride 150-199 mg/dLHigh Triglyceride: 200-499 mg/dLVery High Triglyceride: greater than or equal to 5OO mg/dL Cholesterol 204(H) <200 mg/dL [facility] Comment:Desirable Cholestero l: less than 200 mg/dLBorderline High Cholesterol: 200-239 mg/dLHigh Cholesterol: greater than 239 mg/dL LDL Cholesterol Calculated 128(H) <100 mg/dL [facility] Comment:Desirable LDL: less than 100 mg/dLNear Optimal/Above Optimal LDL: 110- 129 mg/dLBorderline High LDL: 130-159 mg/dLHigh LDL: 160-189 mg/dLVery High LDL: greater than or equal to 190 mg/dL HDL Cholesterol 49 >40 mg/dL [facility] Comment:Desirable HDL: great er than 40 mg/dL Note: This HDL assay may give artificially low results in patients with liver disease. Blood Venous blood specimen / Unknown 09/18/2024 9:05 AM EST 09/18/2024 11:09 AM EST us Katlyn Dominguez MD LAB BLOOD ORDERABLES Final Res ult Performing Organization Address [facility]/ZIP Co de Phone Number [facility] [address] [place] [phone] from Last 3 Months or Most Recently Relevant to Health Maintenance Insurance MEDICARE Member Subscriber Plan / Payer (Ef fective 2022-Present) Name:Clemente Mathews Member ID:[id number] Relation to Subscriber:Self Name:Clemente Mathews Subscriber ID:[id number] Payer ID:STATE Group ID:Not on file Type:Medicare Address: [place] [employer] (ServiceCEO) [facility].[address] [phone] [facility] Care Teams Coffee Shop Attendant Relationship Specialty Start Date End Date Katlyn Dominguez MD [address], [place] PCP - General Family Medicine 12/14/20
== END 2025-03-17 13:46 | disposition home or self-care (01) ==
LOC: HO.HGI 12:38
PROVIDERS: PCP General Practice; Visit Provider Nurse Practitioner
DX: Z01.818 Encounter for other preprocedural examination (principal); Z12.11 Encounter for screening for malignant neoplasm of colon; J44.9 Chronic obstructive pulmonary disease, unspecified; F17.210 Nicotine dependence, cigarettes, uncomplicated
CPT/HCPCS: 99024

== ENCOUNTER → 2025-03-17 12:38 | Outpatient (BNVA) | payer MEDICARE, SELFPAY | PROVIDERS: PCP General Practice; Visit Provider Nurse Practitioner | DX: Z01.818 Encounter for other preprocedural examination (principal); J44.9 Chronic obstructive pulmonary disease, unspecified; F17.210 Nicotine dependence, cigarettes, uncomplicated | CPT/HCPCS: 99212 ==

== ENCOUNTER 2025-06-16 20:12 | Emergency (ER) | payer MEDICARE, OTHER, SELFPAY ==
[2025-06-16 20:30] VITALS: BP 127/73; PULSE 74; RESP 14; TEMP 36.7; O2SAT 97; BMI 26.8
[2025-06-16 23:32] VITALS: BP 121/86; PULSE 58; TEMP 36.6; O2SAT 97
[2025-06-16 23:47] LABS: MANUAL DIFF FLAG NO
[2025-06-16 23:48] LABS: Hematocrit 38.8 % (42.0-52.0); Hemoglobin 13.4 g/dl (14.0-18.0); Imm Gran Abs Auto 0.03 X10*3/uL (0.00-0.03); Imm Gran Pct Auto 0.4 % (0.0-0.4); Lymphocytes Absolute Auto 2.3 X10*3/uL (1.2-4.9); Mean Corpuscular HGB Conc 34.5 g/dl (31.0-36.0); Mean Corpuscular Hemoglobin 30.5 pg (27.0-33.0); Mean Corpuscular Volume 88.4 fL (80.0-98.0); NRBC Abs Auto 0.000 X10*3/uL (0.0-0.012); NRBC Pct Auto 0.0 /100WBC (0.0-0.2); Platelet Count 204 X10*3/uL (160-400); Red Blood Count 4.39 X10*6/uL (4.60-5.80); White Blood Count 7.7 X10*3/uL (4.8-10.8)
[2025-06-17 00:01] LABS: Alanine Aminotransferase 51 U/L (0-40); Albumin Level 4.4 g/dL (3.5-5.0); Alkaline Phosphatase 78 U/L (39-117); Anion Gap 15 (12-20); Aspartate Amino Transferase 42 U/L (5-37); Blood Urea Nitrogen 16 mg/dL (9-16); Calcium 9.0 mg/dL (8.4-10.2); Carbon Dioxide 26 mmol/L (22-29); Chloride 106 mmol/L (96-108); Creatinine Clr Calc Pharmacy 62.3; Estimated Glomerular Filt Rate > 60; Potassium 3.8 mmol/L (3.3-5.1); Sodium 143 mmol/L (135-145); Total Protein 7.0 g/dL (6.5-8.0)
--- NOTE | 2025-06-17 01:21 | PC.NURSE ---
provider in with pt.
--- NOTE | 2025-06-17 01:46 | ED_ITS ---
HPI - General Adult General Chief complaint: Skin/Abscess/Foreign Body Stated complaint: Neck/ head pain, Surgery 3 months ago Time Seen by Provider: 06/17/25 00:30 Source: patient Limitations: no limitations History of Present Illness ED Provider: Sherly Curran PA-C HPI narrative: 64-year-old male with a history of diabetes, hypertension, COPD, known coronary artery disease, depression, who presents with scalp infection. Patient states he developed a tender swelling posterior scalp 2 days ago, it has increased in size. Patient states he has had similar lesions in the past that required drainage. Denies fever. Related Data Home Medications ?Medication ?Instructions ?Recorded ?Confirmed cholecalciferol (vitamin D3) 50 50 mcg PO QAM 02/28/24 03/02/25 mcg (2,000 unit) capsule lisinopril 20 1 tab PO QAM 02/28/24 mg-hydrochlorothiazide 25 mg tablet Previous Rx's ?Medication ?Instructions ?Recorded diclofenac sodium 1 % topical gel 2 g topical QID #100 grams 02/09/24 ibuprofen 800 mg tablet 800 mg PO Q8H PRN pain #20 t abs 02/12/24 cyclobenzaprine 10 mg tablet 10 mg PO TID PRN muscle s pasm #20 01/15/25 tabs bisacodyl 5 mg tablet,delayed 10 mg (2 x 5 mg) PO BEDT SWAPNIL 2 days 03/17/25 release (Dulcolax (bisacodyl)) #4 tabs peg 3350-electrolytes 236 240 ml PO Q10M 1 day #4,000 mL 03/17/25 gram-22.74 gram-6.74 gram-5.86 gram solution (Golytely) doxycycline hyclate 100 mg capsule 100 mg PO BID #13 c aps 06/17/25 Allergies Allergy/AdvReac Type Severity Reaction Status Date / Time No Known Allergies Allergy Verified 06/16/25 20:34 Review of Systems 2 Review of Systems: Yes all other systems are reviewed and are negative Constitutional: Constitutional: Denies fatigue and Denies fever(s) Integumentary/Breasts: Skin/Breast: Reports erythema, Reports skin swelling and Reports sores Endocrine: Endocrine: Denies fatigue PMFSH Past Medical History Attestation statement: The following information was validated with the patient. Medical History (Updated 06/17/25 @ 01:52 by GEOFFREY Paul) COPD (chronic obstructive pulmonary disease) Coronary artery calcification seen on CAT scan History of diabetes mellitus, type II Nicotine dependence, cigarettes, uncomplicated Hypertension Surgical History (Updated 05/26/25 @ 09:18 by HENRIK Love) History of bronchoscopy Pulmonary nodules History of colonoscopy History of shoulder surgery History of lumbar surgery Social History Social History Household Members: Significant Other Housing: House Are you a primary post anesthesia care unit nurse to a significant other at home: No Do you presently have visiting nurse or other home services: No Alcohol intake: never Patient Tobacco Use Status: Current everyday Tobacco user Tobacco use type: Cigarette Cigarettes Per Day: 6 Years Smoked: onset 9yo, 1ppd x 53yrs, 50pyh Smoked in Last 30 Days: No Second Hand Smoke Exposure: Yes Use of substances other than those prescribed or required for medical reasons: No Substance Use Type: Marijuana Advance Directives: No Advance Directives Information Provided: Yes Do you have a plan to hurt others: No Plan service: No Current occupational status: disabled Physical Exam ED Vital Signs: Vital Signs - 24 hr 06/16/25 20:30 06/16/25 23:32 Temperature 98.0 F 97.8 F Pulse Rate 74 58 Respiratory Rate 14 Blood Pressure 127/73 121/86 Pulse Oximetry 97 97 Oxygen Delivery Method Room Air Room Air BMI result Body Mass Index 26.8 Const Other: Alert Orientation/consciousness: patient oriented x3 Resp Effort & Inspection: normal respiratory effort Cardio Other: Normal peripheral perfusion Skin Other: Warm dry no rash, cystic lesion noted posterior left scalp, overlying erythema, tender to palpation, central fluctuance no active drainage Neuro General: patient oriented x3, gait normal, no focal motor deficits and CN's II- XI intact bilaterally Psych Other: Cooperative Procedures Abscess I/D Site: scalp (Infected cyst) Side (if applicable): left Sedation/analgesia: none Local Anesthetic: lidocaine 1% and with epi Amount of anesthesia used (mL): 2 Technique: incised with blade and ultrasound guided Amount of fluid expressed (mL): 1 Sent for culture/gram staining?: No Irrigation: Yes Packing used?: plain Medical Decision Making Medical Decision Making MDM Narrative: 64-year-old male with a history of diabetes, hypertension, COPD, known coronary artery disease, depression, who presents with scalp infection. Patient states he developed a tender swelling posterior scalp 2 days ago, it has increased in size. Patient states he has had similar lesions in the past that required drainage. Denies fever. Problem: Diabetes History: Per patient I have considered the following differential diagnoses: Sebaceous cyst, infected cyst, cellulitis, purulent cellulitis, folliculitis, abscess Plan: The patient has what appears to be a cyst that is infected, II and D to at bedside, minimal purulent drainage. We will send the patient with a contact for a surgical service to discuss elective removal of the cyst. Placing on doxycycline. Lab Data 06/16/25 23:43 06/16/25 23:43 Labs: Lab Results 06/16/25 Range/Units 23:43 WBC 7.7 (4.8-10.8) X10*3/uL RBC 4.39 L (4.60-5.80) X10*6/uL Hgb 13.4 L (14.0-18.0) g/dl Hct 38.8 L (42.0-52.0) % MCV 88.4 (80.0-98.0) fL MCH 30.5 (27.0-33.0) pg MCHC 34.5 (31.0-36.0) g/dl RDW 13.0 (11.0-16.0) % Plt Count 204 (160-400) X10*3/uL MPV 10.4 (9.4-12.4) fL Immature Gran % (Auto) 0.4 (0.0-0.4) % Neut % (Auto) 58.0 (45-73) % Lymph % (Auto) 29.4 (20-40) % Meigs % (Auto) 9.7 (2-11) % Eos % (Auto) 1.8 (0-4) % Baso % (Auto) 0.7 (0-2) % Lymph # (Auto) 2.3 (1.2-4.9) X10*3/uL Meigs # (Auto) 0.7 (0.1-1.2) X10*3/uL Eos # (Auto) 0.1 (0.0-0.4) X10*3/uL Baso # (Auto) 0.1 (0.0-0.2) X10*3/uL Abs Immat Gran (auto) 0.03 (0.00-0.03) X10*3/uL Absolute Neuts (auto) 4.4 (2.0-8.3) x10*3/uL Absolute Nucleated RBC 0.000 (0.0-0.012) X10*3/uL Nucleated RBC % (auto) 0.0 (0.0-0.2) /100WBC Sodium 143 (135-145) mmol/L Potassium 3.8 (3.3-5.1) mmol/L Chloride 106 (96-108) mmol/L Carbon Dioxide 26 (22-29) mmol/L Anion Gap 15 (12-20) BUN 16 (9-16) mg/dL Creatinine 1.09 (0.5-1.4) mg/dL Estim Creat Clear Calc 62.3 Estimated GFR > 60 Fasting Glucose 105 H (60-99) mg/dL Calcium 9.0 (8.4-10.2) mg/dL Total Bilirubin 0.4 (0.0-1.0) mg/dL AST 42 H (5-37) U/L ALT 51 H (0-40) U/L Alkaline Phosphatase 78 (39-117) U/L Total Protein 7.0 (6.5-8.0) g/dL Albumin 4.4 (3.5-5.0) g/dL Discharge Plan Discharge Clinical Impression: Infected cyst of skin Patient Disposition: Home, Self-Care Instructions: Cyst (ED), Abscess Incision and Drainage (DC) Additional Instructions: You have an infected skin cyst, it was drained at bedside. See home care instructions. Take the doxycycline as directed. I am providing you with a contact for our surgical service, you can call to make an appointment, to discuss the elective removal of the cyst itself. Prescriptions: New doxycycline hyclate 100 mg capsule 100 mg PO BID Qty: 13 0RF No Action cyclobenzaprine 10 mg tablet 10 mg PO TID PRN (Reason: muscle spasm) Qty: 20 0RF diclofenac sodium 1 % gel 2 g topical QID Qty: 100 0RF Rx Instructions: apply to left knee ibuprofen 800 mg tablet 800 mg PO Q8H PRN (Reason: pain) Qty: 20 0RF lisinopril-hydrochlorothiazide 20-25 mg tablet 1 tab PO QAM cholecalciferol (vitamin D3) 50 mcg (2,000 unit) capsule 50 mcg PO QAM peg 3350-electrolytes [Golytely] 236-22.74-6.74 -5.86 gram recon soln 240 ml PO Q10M 1 Days Qty: 4000 0RF Rx Instructions: until fecal effluent is clear; do not exceed a total volume of 2,000 mL bisacodyl [Dulcolax (bisacodyl)] 5 mg tablet,delayed release (DR/EC) 10 mg PO BEDTIME 2 Days Qty: 4 0RF Referrals: Krysta Cevallos MD [Physician, General Surgery] Referral Note: scalp cyst Print Language: Bol[place]ian
--- NOTE | 2025-06-17 01:48 | PC.NURSE ---
medicated per mar.
[2025-06-17 01:56] VITALS: BP 133/77; PULSE 70; RESP 16; TEMP 36.7; O2SAT 93
--- NOTE | 2025-06-17 02:05 | PC.NURSE ---
reviewed discharge instructions with pt. pt verbalized understanding, no sign of distress, pt had a steady gait upon discharge.
[2025-06-17 02:07] VITALS: BP 133/77; PULSE 70; RESP 16; TEMP 36.7; O2SAT 93
== END 2025-06-17 02:08 | disposition home or self-care (01) ==
PROVIDERS: Emergency Provider Emergency Medicine; PCP General Practice
DX: L72.8 Other follicular cysts of the skin and subcutaneous tissue (principal); L08.9 Local infection of the skin and subcutaneous tissue, unspecified
CPT/HCPCS: 10060; 36415; 80053; 85025; 99283; 99284